=== PATIENT | male | born 1945 | race Caucasian/White ===

== ENCOUNTER 2019-07-25 09:50 | Outpatient (CLI) | payer MEDICARE, SELFPAY ==
[2019-07-25 10:12] LABS: Basophils % 0.5 %; Eosinophils # 0.1 10^3/uL (0.0-0.8); Eosinophils % 2.5 %; Hematocrit 36.8 % (42.0-52.0); Lymphocytes # 1.1 10^3/uL (0.8-4.8); Lymphocytes % 26.8 %; Mean Corpuscular HGB Conc 32.6 g/dL (30.0-36.0); Mean Corpuscular Hemoglobin 30.5 pg (28.0-34.0); Mean Corpuscular Volume 93.4 fL (80-94); Monocytes # 0.4 10^3/uL (0.2-0.9); Monocytes % 10.9 %; Neutrophils # 2.3 10^3/uL (1.8-7.7); Neutrophils % 58.1 %; Nucleated Red Blood Cells % 0 %; Platelet Count 152 10^3/cmm (130-400); Red Blood Count 3.94 10^6/uL (4.1-5.3); Red Cell Distribution Width 13.7 % (12.1-15.1)
[2019-07-25 10:45] LABS: Alanine Aminotransferase 7 U/L (0-41); Alkaline Phosphatase 60 IU/L (40-130); Anion Gap 14.4 (5-19); Aspartate Amino Transferase 17 U/L (0-40); Blood Urea Nitrogen 18 mg/dL (8-23); Calcium 9.6 mg/dL (8.5-10.5); Carbon Dioxide 26 mmol/L (22-29); Chloride 101 mmol/L (98-107); Glucose 171 mg/dL (65-115); Potassium 4.4 mmol/L (3.5-5.1); Sodium 137 mmol/L (136-145)
[2019-07-25 13:02] LABS: Estmated Average Glucose 120; Hemoglobin A1C 5.8 % (4.0-6.0)
--- NOTE | 2019-07-28 10:39 | ONC FU_ITS ---
Dr. Lindsey Patient Follow-Up Note Patient: Raj Herrera Unit #: [id number]: [id number] Dicatated By: Raj Lindsey M.D.Date of Visit:Jul 25, 2019 Onc Med Follow-up/Prog Note Chief Complaint: Colon cancer. 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 This patient has been in good general health. He has been advised to have a screening colonoscopy. He first had stool Hemoccult testing, which was found to be positive. He then underwent EGD and colonoscopy on 09/22/2017. The EGD showed evidence of reflux esophagitis along with gastritis and a chronic appearing gastric ulcer. The colonoscopy showed a partially obstructing, malignant appearing mass in the mid sigmoid colon. The findings are otherwise limited to diverticulosis. Biopsy of the mass showed adenomatous epithelium with high-grade dysplasia. Staging CT of the abdomen/pelvis showed some mucosal thickening near the region of the hepatic flexure and also at the descending colon and sigmoid colon junction, but a discrete mass was not identifiable. A 2 cm cystic mass involving the lower pole of the left kidney was indeterminate. Further evaluation with ultrasound was recommended. There was no evidence of metastatic disease, though. He was referred to Dr. Bennett, and on 10/04/2017 he underwent hand-assisted laparoscopic sigmoid colectomy. At the time there was no evidence of metastatic involvement in the liver or peritoneal metastatic involvement. He had no complications with the procedure. Pathology showed moderately differentiated (grade 2) invasive adenocarcinoma measuring 3.5 cm. The tumor was noted to extend through the muscularis with invasion of the visceral peritoneum. There was no lymphovascular invasion identified, and there was no involvement in 12 lymph nodes. I had seen him initially on 10/30/2017, and at that time had discussion with him regarding possibility of taking adjuvant chemotherapy, as he would potentially be at higher risk for recurrence with a T4 primary lesion. He indicated that he was willing to at least consider it. As such, I had requested further evaluation with an Oncotype DX assay. It showed a recurrence score of 25, correlating with a 3-year risk of recurrence with surgery alone estimated at 25% for a T4 tumor. He began adjuvant chemotherapy with Xeloda on 12/14/2017. The dosage calculated to 3000 mg bid for 14 days. He tolerated it well, and he was able to proceed with cycle 2 on 01/04/2018. At his follow-up visit on 01/31/2018 he had developed some mild hand/foot syndrome. I did have him continue with his 3rd cycle of chemotherapy, but with the dosage of Xeloda reduced to 2000 mg twice a day. He apparently continued the treatment for 21 days. He was seen again on 03/01/2018. At that point his treatment was put on hold due to a decrease in his white blood cell count to 2900 with ANC 1400. As of 03/14/2018 he was able to begin cycle 4 at the same dosage, which he tolerated well. He then continued treatment at 3-week intervals. He began his 8th and final cycle of treatment on 06/06/2018. Surveillance CT scans of the chest, abdomen, and pelvis on 07/23/2018 showed a few noncalcified pulmonary nodules in the right upper lobe, the largest measuring 6 mm. Previously described upper abdominal lymph nodes measuring 8-9 mm along the celiac axis appeared stable. With those findings, he continued on observation/expectant management. His other medical illnesses have been limited to type II diabetes and GERD/peptic ulcer disease. He is a nonsmoker. INTERIM HISTORY: Surveillance CT scans on 01/21/2019 showed indeterminant but stable complex cystic mass in the lower pole the left kidney measuring 2.0 cm. There were stable right hilar indeterminant lymph nodes and stable pleural plaques and right upper and lower lobe pulmonary nodules. He continued observation/expectant management. He is seen for a scheduled visit. He has been feeling pretty good generally. He says his energy is okay as long as he gets enough sleep. He has normal activity. He has good appetite. He has no fever or night sweats. He still has flareups of diarrhea every once in a while, and with those episodes he does have urgency with defecation. I am not sure if he has had a follow-up colonoscopy. He has some shortness of breath with activity. He does not have resting dyspnea, cough, or chest pain. He has no complaints other than he does have to get up at night several times to void. He has pain in his left knee, which is chronic. He has no focal neurologic symptoms. Medications: Aspirin 1 Tablet (of 81 mg) Oral daily, Cholecalciferol 1 Tablet (of 25 mcg ) Tablet, chewable Oral daily, [facility] Magnesium 1 Tablet (of 250 mg) Oral daily, Flomax 1 Capsule (of 0.4 mg) Oral daily, MetFORMIN HCl 1 (500 mg) Tablet Oral b.i.d., Multivitamin Men 1 Tablet Oral daily, Turmeric 2 Miscellaneous Oral daily, Vitamin B12 1 Miscellaneous Oral daily Allergies: No Known Allergies. Review of Systems: Constitutional - He is feeling good. His energy is fair. He has normal activity. 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 His appetite is good and his weight is stable. No fever, chills, hot flashes, or night sweats. ECOG score is 0, ENMT - No sinus congestion/drainage. No mouth sores. No sore throat or difficulty swallowing, Hematologic/Lymphatic - He bruises easily, Respiratory - He has shortness of breath upon exertion. No cough. No pleuritic pain or hemoptysis, Cardiovascular - No angina pain. No palpitations, Gastrointestinal - No nausea or vomiting. No heartburn or acid reflux. He has occasional mild diarrhea. No blood in the stool or black stools, Genitourinary (M) - No dysuria or hematuria. He has urinary frequency at night. No urgency or incontinence, Musculoskeletal - He has pain in his left knee, Integumentary - No skin complications, Neurologic - No headache or dizziness. No numbness/paresthesias or other focal neurologic symptoms, Psychiatric - No anxiety or depression. He is not sleeping well at night. Vital Signs: Performed on Jul 25, 2019 11:42 Height - 74.00 in Weight - 276.4 lbs (LOW) BSA - 2.49 sq.m BMI - 35.49 (HIGH) Temperature - 97.8 F (LOW) Pulse - 70 /min Respiration - 24 /min BP - 137/63 mm(hg) O2 Sat - 97 % Pain - 0 Physical Examination: Constitutional - He looks good generally, Eyes - Sclerae nonicteric. Conjunctivae clear, ENMT - No lesions noted in the oral cavity, Hematologic/Lymphatic - No cervical, clavicular, or axillary adenopathy, Respiratory - Lungs are clear with good air movement bilaterally, Cardiovascular - Heart rhythm is regular. There is a II/ systolic murmur. There is no gallop or rub noted, Abdomen - Moderately distended. Liver and spleen are not enlarged. There is no abdominal mass or ascites noted and there is no inguinal adenopathy, Extremities - No edema, Neurologic - No focal neurologic deficits noted. Lab/Imaging: Test performed on Jul 25, 2019 10:00 Sodium 137 mmol/L Potassium 4.4 mmol/L Chloride 101 mmol/L CO2 26 mmol/L Anion Gap 14.4 BUN 18 mg/dL Creatinine 0.9 mg/dL Cr Clearance (Est) 123.6300 mL/min Glucose 171 mg/dL Calcium 9.6 mg/dL Protein, Total 7.0 g/dL Albumin 4.0 g/dL Globulin 3.0 g/dL Bilirubin, Total 1.0 mg/dL ALT (SGPT) 7 U/L AST (SGOT) 17 U/L Alkaline Phosphatase 60 IU/L Hemoglobin A1C % 5.8 % WBC 4.0 10 3/uL RBC 3.94 10 6/uL HGB 12.0 g/dL HCT 36.8 % MCV 93.4 fL MCH 30.5 pg MCHC 32.6 g/dL RDW 13.7 % Platelet Count 152 10 3/cmm MPV 10.0 fL Neutrophils 2.3 10 3/uL Lymphocytes 1.1 10 3/uL Monocytes 0.4 10 3/uL Eosinophils 0.1 10 3/uL Basophils 0.0 10 3/uL Neutrophil % 58.1 % Lymphocyte % 26.8 % Monocyte % 10.9 % Eosinophil % 2.5 % Basophils % 0.5 % CEA 2.0 ng/mL Impression: 1. 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 His tumor was found to be MMR proficient. His Oncotype DX showed a recurrence score of 25, correlating with a 3-year risk of recurrence with surgery alone estimated at 25% for a T4 tumor. 2. He underwent hand-assisted laparoscopic sigmoid colectomy on 10/04/2017. 3. He had CT evidence of a 2 cm cystic mass involving the lower pole of the left kidney, felt to be indeterminate. His other medical illnesses include: 4. Type II diabetes. 5. He had EGD evidence of GERD and chronic gastric ulcer. He underwent adjuvant chemotherapy with 8 cycles of Xeloda between November and May 2018. He did require dose reductions for hand/foot syndrome and for neutropenia. Overall, he tolerated the treatment well. During follow-up he has continued to have some diarrhea intermittently. He has otherwise been doing well clinically, and thus far there has been no evidence of recurrence of the colon cancer. Plan: He remains on observation/expectant management. I will verify the status of his surveillance colonoscopy. I will see him again in 6 months. Signed By: Raj Lindsey M.D. <<Signature on File>>
== END 2019-07-25 09:51 | disposition home or self-care (01) ==
LOC: ONCMED 09:54
PROVIDERS: Visit Provider Internal Medicine Medical Oncology
DX: Z08 Encounter for follow-up examination after completed treatment for malignant neoplasm (principal); Z85.038 Personal history of other malignant neoplasm of large intestine; E11.9 Type 2 diabetes mellitus without complications; K21.9 Gastro-esophageal reflux disease without esophagitis; Z79.82 Long term (current) use of aspirin; Z79.84 Long term (current) use of oral hypoglycemic drugs; Z90.49 Acquired absence of other specified parts of digestive tract; Z87.11 Personal history of peptic ulcer disease
CPT/HCPCS: 36415; 80053; 82378; 83036; 85025; G0463

== ENCOUNTER → 2020-01-06 14:55 | Outpatient (BNVA) | payer MEDICARE, SELFPAY | PROVIDERS: Visit Provider Family Medicine | DX: I10 Essential (primary) hypertension (principal); E11.9 Type 2 diabetes mellitus without complications; Z85.038 Personal history of other malignant neoplasm of large intestine; R55 Syncope and collapse; R01.1 Cardiac murmur, unspecified | CPT/HCPCS: 80053; 85025 ==

== ENCOUNTER 2020-01-16 11:21 | Emergency (ER) | payer MEDICARE, SELFPAY ==
[2020-01-16 11:25] VITALS: BMI 32.8
[2020-01-16 11:38] VITALS: BP 148/67; PULSE 76; RESP 18; TEMP 36.9; O2SAT 98
--- NOTE | 2020-01-16 11:46 | XRR_ITS ---
PROCEDURE INFORMATION: Exam: XR Chest, 1 View Exam date and time: 01/16/2020 12:17 PM Age: 74 years old Clinical indication: Cough TECHNIQUE: Imaging protocol: XR of the chest Views: 1 view. COMPARISON: CT Chest/Abdomen/Pelvis w IV* 01/21/2019 10:04 AM FINDINGS: Lungs: Patchy alveolar airspace disease in the right mid lung. Pleural space: Unremarkable. No pleural effusion. No pneumothorax. Heart/Mediastinum: The cardiac silhouette appears enlarged, some of which is magnification related to the AP projection. Bones/joints: Unremarkable. XR/XR chest 1V portable [id number] IMPRESSION: Patchy alveolar airspace disease in the right mid lung. Please correlate. Consider CT if indicated. Likely infectious. Follow-up to ensure resolution.
[2020-01-16 11:56] VITALS: BP 146/64; PULSE 79; RESP 20; O2SAT 97
[2020-01-16 12:07] LABS: ABG PCO2 36.8 mmHg (35-45); ABG PH Result 7.43 (7.35-7.45); Arterial Blood Gas Hematocrit 35.7 % (42-52); Base Excess ABG 0.5 mmol/L (-2.0-2.0); Blood Gas Allen Test Pos; Blood Gas Sample Type Arterial; HCO3 ABG 24.6 mmol/L (22-26); PO2 ABG 83.3 mmHg (80.0-100.0)
[2020-01-16 12:14] LABS: Basophils % 0.7 %; Eosinophils % 0.9 %; Hematocrit 34.2 % (42.0-52.0); Hemoglobin 11.3 g/dL (11.7-16.6); Lymphocytes # 1.4 10^3/uL (0.8-4.8); Lymphocytes % 34.1 %; Mean Corpuscular Hemoglobin 31.3 pg (28.0-34.0); Mean Corpuscular Volume 94.7 fL (80-94); Mean Platelet Volume 10.8 fL (7.4-10.4); Monocytes # 0.4 10^3/uL (0.2-0.9); Monocytes % 9.2 %; Neutrophils # 2.08 10^3/uL (1.8-7.7); Neutrophils % 49.4 %; Nucleated Red Blood Cells % 0 %; Platelet Count 180 10^3/cmm (130-400); Red Blood Count 3.61 10^6/uL (4.1-5.3); Red Cell Distribution Width 13.8 % (12.1-15.1); White Blood Count 4.2 10^3/uL (4.0-10.0)
[2020-01-16] MEDS: sodium chloride 0.9% 1,000 ML 999 ML IV (12:27)
--- NOTE | 2020-01-16 12:27 | ED_ITS ---
HPI - General Adult General: Chief complaint: General Medical Stated complaint: TESTED POS FOR COVID/HAS SYMPTOMS Time Seen by Provider: 01/16/20 11:38 Source: patient Mode of arrival: ambulatory Limitations: no limitations History of Present Illness: HPI narrative: Raj is a very nice 74-year-old male who comes in complaining of possible COVID-19 exposure. He believes actually he probably passed this to his . He has had the symptoms for quite some time and feels like he is getting better. He has an occasional cough but no shortness of breath. He denies fever, sore throat, loss of sense of taste/smell, vomiting or any other respiratory complaint. He does state he has occasional diarrhea that is nonbloody. Denies any abdominal pain or nausea/vomiting. Patient states that he only came in because he was advised by his doctor that he should get tested. He otherwise states he is feeling better but it is taken quite some time. Associated symptoms: Deny chest pain, dyspnea, headache(s), nausea, rash, palpitations, syncope or vomiting Review of Systems Const: Denies: fever(s) Eyes: Denies: change in vision ENMT: Denies: throat pain Card: Denies: chest pain, palpitations, syncope, pre-syncope or dyspnea on exertion Resp: Denies: dyspnea, productive cough or non-productive cough GI: Reports: diarrhea; Denies: abdominal pain, nausea or vomiting : Denies: flank pain, dysuria, urinary frequency or urinary urgency Musc: Denies: neck pain, back pain or extremity pain Skin/Breast: Denies: rash or pruritus Neuro: Denies: headache(s), numbness in extremities, weakness in extremities or dizziness Zeus/Lymph: Denies: easy bruising or easy bleeding All/Imm: Denies: urticaria PFSH ED PFSH: Medical History Benign prostatic hyperplasia with urinary frequency Essential (primary) hypertension H/O malignant neoplasm of colon We found his left sided lesion in 09/2017. Repeat exam in 2019 was negative. 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 Out of state: Yes Out of country: No Current gender identity: Male Physical Exam Const: COMMON NORMALS: no acute distress, patient oriented x3, no limitations, healthy appearing and well nourished GENERAL APPEARANCE: cooperative, well kempt and well developed HENMT: COMMON NORMALS: normocephalic, atraumatic, external ears normal, EAC's normal and Normal external nose present HEAD & SCALP: normal to inspection, normocephalic and atraumatic FACE & SINUS: normal facial exam and face symmetric NOSE: Normal external nose present and Normal nares present EXTERNAL EAR: Yes external ears normal EXTERNAL AUDITORY CANAL: EAC's normal MOUTH: Normal oral and palatal mucosa present, lip normal and tongue normal Eye: COMMON NORMALS: Equal, round and reactive pupils present and conjunctivae normal GENERAL EYE: appearance normal, both eyes and all related structures ALIGNMENT: Yes alignment normal PERIORBITAL: periorbital findings normal EYELID: eyelids normal CONJUNCTIVA: Yes conjunctivae normal SCLERA: sclerae normal PUPIL: Yes Equal, round and reactive pupils present Neck/C-Spine: COMMON NORMALS: full ROM, no lymphadenopathy, supple, no meningeal signs and no JVD GENERAL: Yes normal visual inspection and Yes trachea midline Chest: COMMONS NORMALS: normal inspection of the chest and normal palpation of entire chest wall Resp: COMMON NORMALS: normal respiratory effort, No retractions and No use of accessory muscles EFFORT & INSPECTION: Yes able to speak in complete sentences and Yes symmetric chest movement AUSCULTATION: no crackles, no rales, no rhonchi and no wheezes Cardio: COMMON NORMALS: no JVD, regular rate, regular rhythm, S1 normal heart sound present and S2 normal heart sound present RATE: regular rate RHYTHM: regular rhythm HEART SOUNDS: S1 normal heart sound present, S2 normal heart sound present, no click, no gallops, no murmurs, no rubs and abnormal split S2 GI: COMMON NORMALS: Soft to palpation and No hepatosplenomegaly present PALPATION: Yes Soft to palpation, No Tenderness to palpation present (GI), No Guarding due to palpation present (GI), No Rigid due to palpation, Yes No hepatosplenomegaly present, No Hernia present, No Palpable mass present and No Pulsatile mass present : COMMON NORMALS: Yes no CVA tenderness BLADDER/KIDNEY EXAM: Yes no CVA tenderness Back/Pelvis: COMMON NORMALS: no CVA tenderness, thoracic and lumbar spine normal to inspection, no thoracic nor lumbar tenderness and thoraco-lumbar ROM normal Extremity: COMMON NORMALS: normal to inspection, full ROM, capillary refill normal, no joint enlargement, no clubbing, cyanosis or edema and no calf tenderness Neuro: COMMON NORMALS: patient oriented x3, CN's II-XII intact bilaterally, moves all extremities, no focal motor deficits and no sensory deficits noted MENINGEAL SIGNS: Yes no meningeal signs SPEECH: speech normal Psych: COMMON NORMALS: mental status grossly normal, Normal thought process present, cooperative, normal affect, speech normal and activity/motor behavior normal APPEARANCE: Yes well kempt SPEECH: Yes normal speech THOUGHT PROCESS: Normal thought process present Skin: COMMON NORMALS: no rashes or lesions noted, turgor normal, no jaundice, no petechiae and no mottling GENERAL SKIN EXAM: no rashes or lesions noted and turgor normal Course Vital Signs: Vital signs: Vital Signs Temperature 98.6 F 01/16/20 13:48 Pulse Rate 64 01/16/20 13:48 Respiratory Rate 18 01/16/20 13:48 Blood Pressure 131/71 01/16/20 13:48 Pulse Oximetry 99 01/16/20 13:48 MDM - General Adult MDM Narrative: Medical decision making narrative: Mr. Herrera is a very nice 74-year-old male who comes in with a week's worth or more history of shortness of breath and cough. His tested positive for the COVID-19 virus. The patient is specifically here for that test and the test has been sent. He will go home and quarantine himself until the results are known. In the meantime as he appears to have a focal infiltrate on his chest x-ray I will put him on Levaquin. Patient is not hypoxic, he is not tachypneic and shows no sign of sepsis. I see no sign of acute decompensation. The patient wants to go home but does agree to return if his symptoms worsen. He agrees to follow-up as directed or return here if needed. Lab Data: Attestation: I reviewed the patient's lab results. Labs: Lab Results 01/16/20 01/16/20 01/16/20 Range/Units 11:54 11:54 11:57 WBC 4.2 (4.0-10.0) 10^3/ uL RBC 3.61 L (4.1-5.3) 10^6/u L Hgb 11.3 L (11.7-16.6) g/dL Hct 34.2 L (42.0-52.0) % MCV 94.7 H (80-94) fL MCH 31.3 (28.0-34.0) pg MCHC 33.0 (30.0-36.0) g/dL RDW 13.8 (12.1-15.1) % Plt Count 180 (130-400) 10^3/c mm MPV 10.8 H (7.4-10.4) fL Neut % (Auto) 49.4 % Lymph % (Auto) 34.1 % Craig % (Auto) 9.2 % Eos % (Auto) 0.9 % Baso % (Auto) 0.7 % Neut # (Auto) 2.08 (1.8-7.7) 10^3/u L Lymph # (Auto) 1.4 (0.8-4.8) 10^3/u L Craig # (Auto) 0.4 (0.2-0.9) 10^3/u L Eos # (Auto) 0.0 (0.0-0.8) 10^3/u L Baso # (Auto) 0.0 (0.0-0.1) 10^3/u L Nucleated RBC % (a uto) 0 % Nucleated RBCs # 0.0 /100WBC Specimen Type Arterial Sample Site Radial, left ABG pH 7.43 (7.35-7.45) ABG pCO2 36.8 (35-45) mmHg ABG pO2 83.3 (80.0-100.0) mmH g ABG HCO3 24.6 (22-26) mmol/L ABG Base Excess 0.5 (-2.0-2.0) mmol/ L Glenn Test Pos Hematocrit 35.7 L (42-52) % O2 Delivery Device Room air Shoe Stitcher ID Gd Sodium 137 (136-145) mmol/L Potassium 3.8 (3.5-5.1) mmol/L Chloride 104 (98-107) mmol/L Carbon Dioxide 22 (22-29) mmol/L Anion Gap 14.8 (5-19) BUN 17 (8-23) mg/dL Creatinine 0.9 (0.7-1.2) mg/dL GFR Calculation Not Reportable Glucose 200 H (65-115) mg/dL Calculated Osmolal ity 286 (285-295) mOsm/k g Calcium 8.2 L (8.5-10.5) mg/dL Total Bilirubin 0.9 (0.15-1.2) mg/dL AST 19 (0-40) U/L ALT 8 (0-41) U/L Alkaline Phosphata se 54 (40-130) IU/L Total Protein 7.4 (6.6-8.7) g/dL Albumin 3.9 (3.5-5.2) g/dL Globulin 3.5 (1.3-4.6) g/dL Imaging Data^: CXR: Attestation: I personally reviewed and interpreted this imaging study as follows: My impression: Probable right upper lobe infiltrate Discharge Plan Discharge Patient Disposition: Home Clinical Impression: Pneumonia Qualifiers: Pneumonia type: due to unspecified organism Laterality: right Lung location: upper lobe of lung Qualified Code(s): J18.9 - Pneumonia, unspecified organism Condition: Stable Prescriptions: New Levaquin 750 mg tablet 750 mg PO DAILY 7 Days RF: 0 No Action vitamin [id number] B1 Liquid PO RF: 0 aspirin [Adult Aspirin Regimen] 81 mg tablet,delayed release (DR/EC) 81 mg PO DAILY RF: 0 multivitamin Tablet 1 tab PO QAM RF: 0 cholecalciferol (vitamin D3) 50 mcg (2,000 unit) capsule 2,000 unit PO DAILY RF: 0 metformin 500 mg tablet 500 mg PO DAILY 90 Days Qty: 90 RF: 1 tamsulosin 0.4 mg capsule 0.8 mg PO DAILY 90 Days Qty: 180 RF: 1 lisinopril 5 mg tablet 5 mg PO DAILY 90 Days Qty: 90 RF: 1 Discharge Orders: Discharge Order (Routine); Ordered 01/16/20 Ordered By: Pat Camara Referrals: [facility] [Other] Doc Jones MD [Physician] - 1-3 days Discharge Diet: Usual diet Discharge Activity: Increase activity as tolerated Patient Instructions: Viral Pneumonia (ED), Bacterial Pneumonia (ED), Pneumonia (ED) Activity Restrictions/Additional Instructions: Please return to the ER immediately for any of the signs or symptoms listed on your discharge instruction sheets, worsening/changing of your symptoms, you are not getting better as quickly as expected, or for ANY other cause or concerns. Keep yourself quarantined and away from people until we call you with a results of your COVID-19 test. Take your antibiotics in case of secondary bacterial infection. Be certain to follow-up with your doctor or with Dr. Jones as soon as possible for recheck. Discharge Date/Time: 01/16/20 13:54 Coding Level of Care Code ED Lithoduplicator Operator for Shelleyg Fwd Exam Comprehensive
[2020-01-16 12:29] LABS: Blood Gas Operator Identificat GD; Blood Gas Sample Site Radial, left; Oxygen Device ROOM AIR
[2020-01-16 12:35] LABS: Alanine Aminotransferase 8 U/L (0-41); Albumin Level 3.9 g/dL (3.5-5.2); Alkaline Phosphatase 54 IU/L (40-130); Anion Gap 14.8 (5-19); Aspartate Amino Transferase 19 U/L (0-40); Blood Urea Nitrogen 17 mg/dL (8-23); Calcium 8.2 mg/dL (8.5-10.5); Carbon Dioxide 22 mmol/L (22-29); Chloride 104 mmol/L (98-107); Globulin 3.5 g/dL (1.3-4.6); Glucose 200 mg/dL (65-115); Osmolality Calculated 286 mOsm/kg (285-295); Potassium 3.8 mmol/L (3.5-5.1); Sodium 137 mmol/L (136-145); Total Bilirubin 0.9 mg/dL (0.15-1.2); Total Protein 7.4 g/dL (6.6-8.7)
[2020-01-16 12:38] LABS: Slide Review Slide Review Perform
[2020-01-16 13:48] VITALS: BP 131/71; PULSE 64; RESP 18; TEMP 37; O2SAT 99
[2020-01-18 14:54] LABS: Quest SARS-CoV-2 RNA NOT DETECTED (NOT DETECTED)
--- NOTE | 2020-01-18 16:54 | PC.NURSE ---
Pt called and notified of negative COVID test.
== END 2020-01-16 13:54 | disposition home or self-care (01) ==
PROVIDERS: Emergency Provider Emergency Medicine
DX: J18.9 Pneumonia, unspecified organism (principal); Z79.82 Long term (current) use of aspirin; I10 Essential (primary) hypertension; Z85.038 Personal history of other malignant neoplasm of large intestine; E11.9 Type 2 diabetes mellitus without complications
CPT/HCPCS: 12345; 36600; 71045; 80053; 82803; 85025; 87040; 87205; 87635; 96360; 99282; 99283; J7030

== ENCOUNTER 2020-02-18 08:47 | Outpatient (CLI) | payer MEDICARE, SELFPAY ==
[2020-02-18 09:02] LABS: Basophils % 0.8 %; Eosinophils # 0.1 10^3/uL (0.0-0.8); Eosinophils % 2.4 %; Hematocrit 38.7 % (42.0-52.0); Hemoglobin 12.5 g/dL (11.7-16.6); Lymphocytes # 1.4 10^3/uL (0.8-4.8); Lymphocytes % 37.3 %; Mean Corpuscular HGB Conc 32.3 g/dL (30.0-36.0); Mean Platelet Volume 10.7 fL (7.4-10.4); Monocytes # 0.5 10^3/uL (0.2-0.9); Monocytes % 13.6 %; Neutrophils # 1.65 10^3/uL (1.8-7.7); Nucleated Red Blood Cells % 0 %; Platelet Count 145 10^3/cmm (130-400); Red Blood Count 4.03 10^6/uL (4.1-5.3); Red Cell Distribution Width 14.3 % (12.1-15.1); White Blood Count 3.8 10^3/uL (4.0-10.0)
[2020-02-18 09:18] LABS: Alanine Aminotransferase 8 U/L (0-41); Albumin Level 4.5 g/dL (3.5-5.2); Alkaline Phosphatase 57 IU/L (40-130); Anion Gap 11.6 (5-19); Aspartate Amino Transferase 14 U/L (0-40); Blood Urea Nitrogen 17 mg/dL (8-23); Calcium 9.5 mg/dL (8.5-10.5); Carbon Dioxide 29 mmol/L (22-29); Chloride 107 mmol/L (98-107); Globulin 3.3 g/dL (1.3-4.6); Glucose 146 mg/dL (65-115); Osmolality Calculated 295 mOsm/kg (285-295); Potassium 4.6 mmol/L (3.5-5.1); Sodium 143 mmol/L (136-145); Total Bilirubin 0.8 mg/dL (0.15-1.2); Total Protein 7.8 g/dL (6.6-8.7)
--- NOTE | 2020-02-18 09:54 | CT_ITS ---
WS: [id number] CT CHEST, ABDOMEN AND PELVIS WITH CONTRAST HISTORY: COLON CANCER TECHNIQUE: Contiguous 5 mm axial imaging performed through the chest, abdomen and pelvis with IV cont rast, oral contrast has been provided. Coronal and sagittal reformats chest. Coronal and sagittal ref ormats through the abdomen and pelvis. All CT scans at [facility] use at least one of the se dose optimization techniques: automated exposure control; mA and/or kV adjustment per patient size (includes targeted exams where dose is matched to clinical indication); or iterative reconstruction. CONTRAST: Visipaque 320; 95 mL IV. DLP: 2684.76 mGy.cm COMPARISON: 01/21/2019 and 07/23/[address]: Well aerated lungs. No metastatic disease. Soft tissue nodule measures 7 mm along the super ior RIGHT major fissure. There are bilateral stable pleural plaques. No pleural effusion or pericardi al effusion. Very mild enlargement of the LEFT heart structures. Small bilateral hilar lymph nodes. L argest lymph node is stable along the RIGHT measuring 11 mm. Additional smaller RIGHT intrapulmonary lymph node at 8 mm. Small hiatal hernia. Abdomen CT: No metastatic disease to the liver. Liver is top normal size. Cholelithiasis without acut e cholecystitis. Normal size spleen. Negative pancreas. No adrenal mass. Slightly lobulated exophytic cyst from the lower pole LEFT kidney measures 2.6 cm. No obstruction. Mild atherosclerosis aorta. No omental disease. No adenopathy. No ascites. There is no GI tract obstruction. Ventral abdominal wall hernia contains a loop of small bowel. There is no obstruction. Rectosigmoid anastomotic site is normal. No recurrent mass or obstruction. Pelvic CT: Normally distended urinary bladder. There is no ascites or pelvic sidewall adenopathy. No osteoblastic or osteolytic bone disease. Mild increase in the thoracic kyphosis. No osseous destru ction. CT/CT chest abd pel w con* IMPRESSION: 1. No evidence for metastatic disease or disease progression within the chest, abdomen or pelvis. 2. Bilateral pleural plaques with stable soft tissue pulmonary nodules. 3. Stable rectosigmoid anastomosis. 4. Cholelithiasis without acute cholecystitis.
[2020-02-18 10:05] LABS: Carcinoembryonic Antigen 2.3 ng/mL (0.0-4.7)
[2020-02-18] MEDS: iohexol 300 mg/mL 50 mL Btl PO (10:07)
[2020-02-18] MEDS: iodixanol 320 mg/mL 100mL Btl IV (10:50)
== END 2020-02-18 08:48 | disposition home or self-care (01) ==
LOC: CT 08:48
PROVIDERS: PCP Family Medicine; Visit Provider Internal Medicine Medical Oncology
DX: C18.7 Malignant neoplasm of sigmoid colon (principal); K63.89 Other specified diseases of intestine; K80.20 Calculus of gallbladder without cholecystitis without obstruction
CPT/HCPCS: 36415; 71260; 74177; 80053; 82378; 85025

== ENCOUNTER 2020-02-19 08:47 | Outpatient (CLI) | payer MEDICARE, SELFPAY ==
--- NOTE | 2020-02-19 10:28 | ONC FU_ITS ---
Dr. Lindsey Patient Follow-Up Note Patient: Raj Herrera Unit #: [id number]: 1945 Dicatated By: Raj Lindsey M.D.Date of Visit:Feb 19, 2020 Onc Med Follow-up/Prog Note Chief Complaint: Colon cancer. 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 This patient has been in good general health. He has been advised to have a screening colonoscopy. He first had stool Hemoccult testing, which was found to be positive. He then underwent EGD and colonoscopy on 09/22/2017. The EGD showed evidence of reflux esophagitis along with gastritis and a chronic appearing gastric ulcer. The colonoscopy showed a partially obstructing, malignant appearing mass in the mid sigmoid colon. The findings are otherwise limited to diverticulosis. Biopsy of the mass showed adenomatous epithelium with high-grade dysplasia. Staging CT of the abdomen/pelvis showed some mucosal thickening near the region of the hepatic flexure and also at the descending colon and sigmoid colon junction, but a discrete mass was not identifiable. A 2 cm cystic mass involving the lower pole of the left kidney was indeterminate. Further evaluation with ultrasound was recommended. There was no evidence of metastatic disease, though. He was referred to Dr. Bennett, and on 10/04/2017 he underwent hand-assisted laparoscopic sigmoid colectomy. At the time there was no evidence of metastatic involvement in the liver or peritoneal metastatic involvement. He had no complications with the procedure. Pathology showed moderately differentiated (grade 2) invasive adenocarcinoma measuring 3.5 cm. The tumor was noted to extend through the muscularis with invasion of the visceral peritoneum. There was no lymphovascular invasion identified, and there was no involvement in 12 lymph nodes. I had seen him initially on 10/30/2017, and at that time had discussion with him regarding possibility of taking adjuvant chemotherapy, as he would potentially be at higher risk for recurrence with a T4 primary lesion. He indicated that he was willing to at least consider it. As such, I had requested further evaluation with an Oncotype DX assay. It showed a recurrence score of 25, correlating with a 3-year risk of recurrence with surgery alone estimated at 25% for a T4 tumor. He began adjuvant chemotherapy with Xeloda on 12/14/2017. The dosage calculated to 3000 mg bid for 14 days. He tolerated it well, and he was able to proceed with cycle 2 on 01/04/2018. At his follow-up visit on 01/31/2018 he had developed some mild hand/foot syndrome. I did have him continue with his 3rd cycle of chemotherapy, but with the dosage of Xeloda reduced to 2000 mg twice a day. He apparently continued the treatment for 21 days. He was seen again on 03/01/2018. At that point his treatment was put on hold due to a decrease in his white blood cell count to 2900 with ANC 1400. As of 03/14/2018 he was able to begin cycle 4 at the same dosage, which he tolerated well. He then continued treatment at 3-week intervals. He began his 8th and final cycle of treatment on 06/06/2018. Surveillance CT scans of the chest, abdomen, and pelvis on 07/23/2018 showed a few noncalcified pulmonary nodules in the right upper lobe, the largest measuring 6 mm. Previously described upper abdominal lymph nodes measuring 8-9 mm along the celiac axis appeared stable. With those findings, he continued on observation/expectant management. He had a negative surveillance colonoscopy in September 2018. His other medical illnesses have been limited to type II diabetes and GERD/peptic ulcer disease. He is a nonsmoker. INTERIM HISTORY: Surveillance CT scans on 01/21/2019 showed indeterminant but stable complex cystic mass in the lower pole the left kidney measuring 2.0 cm. There were stable right hilar indeterminant lymph nodes and stable pleural plaques and right upper and lower lobe pulmonary nodules. He continued observation/expectant management. Surveillance CT scans on 02/18/2020 showed no evidence for metastatic disease or disease progression within the chest, abdomen or pelvis. Bilateral pleural plaques and a 7 mm soft tissue pulmonary nodule along the superior right major fissure appeared stable. He is seen for a scheduled visit. He has been feeling fine. He has good energy and activity tolerance. ECOG score is 0. He has good appetite. He has no fever or night sweats. He has no shortness of breath, cough, or chest pain. He has no GI complaints. He continues to have nocturia 3 or 4 times. He is not getting any apparent benefit with tamsulosin even at 0.8 mg daily. 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 He has no headache or dizziness, and he has no focal neurologic symptoms. Medications: Aspirin 1 Tablet (of 81 mg) Oral daily, Cholecalciferol 1 Tablet (of 25 mcg ) Tablet, chewable Oral daily, [facility] Magnesium 1 Tablet (of 250 mg) Oral daily, Flomax 1 Capsule (of 0.4 mg) Oral daily, focus factor 1 Tablet Capsule Oral daily, Lisinopril 1 Tablet Oral daily, MetFORMIN HCl 1 (500 mg) Tablet Oral b.i.d., Multivitamin Men 1 Tablet Oral daily, Turmeric 1 Tablet Miscellaneous Oral daily, Vitamin B12 1 Miscellaneous Oral daily, Vitamin C 1 Capsule (of 500 mg) Oral daily Allergies: No Known Allergies. Review of Systems: Constitutional - He has been feeling good. His energy is good and he has normal activity without restrictions. His appetite is good and weight is stable. No fever, night sweats, or hot flashes. ECOG score is 0, ENMT - No sinus congestion/drainage. No mouth sores. No sore throat or difficulty swallowing, Hematologic/Lymphatic - No abnormal bruising or bleeding, Respiratory - No shortness of breath. No cough. No pleuritic pain or hemoptysis, Cardiovascular - No angina pain. No palpitations, Gastrointestinal - No nausea or vomiting. No heartburn or acid reflux. No diarrhea or constipation. No blood in the stool or black stools, Genitourinary (M) - No dysuria or hematuria. He has urinary frequency at night. He is taking 0.8 mg of Flomax nightly. No urgency or incontinence, Musculoskeletal - He has some joint stiffness in his hands, Integumentary - No skin complications, Neurologic - No headache or dizziness. No numbness or tingling. No other focal neurologic symptoms, Psychiatric - No anxiety or depression. No insomnia. Vital Signs: Performed on Feb 19, 2020 09:03 Height - 74.00 in Weight - 277.8 lbs (HIGH) BSA - 2.50 sq.m BMI - 35.67 (HIGH) Temperature - 97.4 F (LOW) Pulse - 78 /min Respiration - 20 /min BP - 144/57 mm(hg) (HIGH) O2 Sat - 98 % Pain - 0 Physical Examination: Constitutional - He looks good generally, Eyes - Sclerae nonicteric. Conjunctivae clear, ENMT - No lesions noted in the oral cavity, Hematologic/Lymphatic - No cervical, clavicular, or axillary adenopathy, Respiratory - Lungs are clear with good air movement bilaterally, Cardiovascular - Heart rhythm is regular. There is a II/ systolic murmur. There is no gallop or rub noted, Abdomen - Moderately distended. Liver and spleen are not enlarged. There is no abdominal mass or ascites noted and there is no inguinal adenopathy, Extremities - No edema, Neurologic - No focal neurologic deficits noted. Lab/Imaging: CBC shows hemoglobin 12.5 g, white blood cell count 3800, and platelet count 145,000. Comprehensive metabolic profile is unremarkable. The bilirubin and liver enzymes are normal. His CEA is stable at 2.3 ng/mL. Impression: 1. 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 His tumor was found to be MMR proficient. His Oncotype DX showed a recurrence score of 25, correlating with a 3-year risk of recurrence with surgery alone estimated at 25% for a T4 tumor. 2. He underwent hand-assisted laparoscopic sigmoid colectomy on 10/04/2017. 3. He had CT evidence of a 2 cm cystic mass involving the lower pole of the left kidney, felt to be indeterminate. His other medical illnesses include: 4. Type II diabetes. 5. He had EGD evidence of GERD and chronic gastric ulcer. He underwent adjuvant chemotherapy with 8 cycles of Xeloda between November and May 2018. He did require dose reductions for hand/foot syndrome and for neutropenia. Overall, he tolerated the treatment well. During follow-up he has been doing well clinically. Thus far there has been no evidence of recurrence of the colon cancer. Plan: He remains on observation/expectant management. I will see him again in 6 months. Signed By: Raj Lindsey M.D. <<Signature on File>>
== END 2020-02-19 08:48 | disposition home or self-care (01) ==
LOC: ONCMED 08:50
PROVIDERS: PCP Family Medicine; Visit Provider Internal Medicine Medical Oncology
DX: Z08 Encounter for follow-up examination after completed treatment for malignant neoplasm (principal); Z85.038 Personal history of other malignant neoplasm of large intestine; K21.9 Gastro-esophageal reflux disease without esophagitis; E11.9 Type 2 diabetes mellitus without complications
CPT/HCPCS: G0463

== ENCOUNTER → 2020-03-30 09:10 | Outpatient (BNVA) | payer MEDICARE, SELFPAY | PROVIDERS: PCP Family Medicine; Visit Provider Family Medicine | DX: E11.9 Type 2 diabetes mellitus without complications (principal); I10 Essential (primary) hypertension; N40.1 Benign prostatic hyperplasia with lower urinary tract symptoms; R55 Syncope and collapse; R01.1 Cardiac murmur, unspecified; Z85.038 Personal history of other malignant neoplasm of large intestine; R35.0 Frequency of micturition | CPT/HCPCS: 80048; 80061; 83036 ==

== ENCOUNTER 2020-07-23 12:50 | Outpatient (CLI) | payer MEDICARE, SELFPAY ==
[2020-07-23 13:36] LABS: Eosinophils # 0.1 10^3/uL (0.0-0.8); Eosinophils % 1.7 %; Hematocrit 36.7 % (42.0-52.0); Hemoglobin 11.9 g/dL (11.7-16.6); Lymphocytes # 1.4 10^3/uL (0.8-4.8); Lymphocytes % 33.4 %; Mean Corpuscular HGB Conc 32.4 g/dL (30.0-36.0); Mean Corpuscular Hemoglobin 31.2 pg (28.0-34.0); Mean Corpuscular Volume 96.3 fL (80-94); Mean Platelet Volume 10.8 fL (7.4-10.4); Monocytes # 0.8 10^3/uL (0.2-0.9); Monocytes % 20.5 %; Neutrophils # 1.66 10^3/uL (1.8-7.7); Neutrophils % 41.2 %; Nucleated Red Blood Cells % 0 %; Platelet Count 137 10^3/cmm (130-400); Red Blood Count 3.81 10^6/uL (4.1-5.3); Red Cell Distribution Width 13.9 % (12.1-15.1)
[2020-07-23 13:48] LABS: Alanine Aminotransferase 8 U/L (0-41); Albumin Level 4.1 g/dL (3.5-5.2); Alkaline Phosphatase 56 IU/L (40-130); Anion Gap 10.1 (5-19); Aspartate Amino Transferase 17 U/L (0-40); Blood Urea Nitrogen 13 mg/dL (8-23); Calcium 8.9 mg/dL (8.5-10.5); Carbon Dioxide 30 mmol/L (22-29); Chloride 102 mmol/L (98-107); Globulin 2.8 g/dL (1.3-4.6); Glucose 139 mg/dL (65-115); Osmolality Calculated 288 mOsm/kg (285-295); Potassium 4.1 mmol/L (3.5-5.1); Sodium 138 mmol/L (136-145); Total Bilirubin 0.9 mg/dL (0.15-1.2); Total Protein 6.9 g/dL (6.6-8.7)
[2020-07-23 16:28] LABS: Carcinoembryonic Antigen 2.2 ng/mL (0.0-4.7)
[2020-07-23 18:39] LABS: Estmated Average Glucose 111; Hemoglobin A1C 5.5 % (4.0-6.0)
--- NOTE | 2020-07-25 11:43 | ONC FU_ITS ---
Dr. Lindsey Patient Follow-Up Note Patient: Raj Herrera Unit #: [id number]: 1945 Dicatated By: Raj Lindsey M.D.Date of Visit:Jul 23, 2020 Onc Med Follow-up/Prog Note Chief Complaint: Colon cancer. 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 This patient has been in good general health. He has been advised to have a screening colonoscopy. He first had stool Hemoccult testing, which was found to be positive. He then underwent EGD and colonoscopy on 09/22/2017. The EGD showed evidence of reflux esophagitis along with gastritis and a chronic appearing gastric ulcer. The colonoscopy showed a partially obstructing, malignant appearing mass in the mid sigmoid colon. The findings are otherwise limited to diverticulosis. Biopsy of the mass showed adenomatous epithelium with high-grade dysplasia. Staging CT of the abdomen/pelvis showed some mucosal thickening near the region of the hepatic flexure and also at the descending colon and sigmoid colon junction, but a discrete mass was not identifiable. A 2 cm cystic mass involving the lower pole of the left kidney was indeterminate. Further evaluation with ultrasound was recommended. There was no evidence of metastatic disease, though. He was referred to Dr. Bennett, and on 10/04/2017 he underwent hand-assisted laparoscopic sigmoid colectomy. At the time there was no evidence of metastatic involvement in the liver or peritoneal metastatic involvement. He had no complications with the procedure. Pathology showed moderately differentiated (grade 2) invasive adenocarcinoma measuring 3.5 cm. The tumor was noted to extend through the muscularis with invasion of the visceral peritoneum. There was no lymphovascular invasion identified, and there was no involvement in 12 lymph nodes. I had seen him initially on 10/30/2017, and at that time had discussion with him regarding possibility of taking adjuvant chemotherapy, as he would potentially be at higher risk for recurrence with a T4 primary lesion. He indicated that he was willing to at least consider it. As such, I had requested further evaluation with an Oncotype DX assay. It showed a recurrence score of 25, correlating with a 3-year risk of recurrence with surgery alone estimated at 25% for a T4 tumor. He began adjuvant chemotherapy with Xeloda on 12/14/2017. The dosage calculated to 3000 mg bid for 14 days. He tolerated it well, and he was able to proceed with cycle 2 on 01/04/2018. At his follow-up visit on 01/31/2018 he had developed some mild hand/foot syndrome. I did have him continue with his 3rd cycle of chemotherapy, but with the dosage of Xeloda reduced to 2000 mg twice a day. He apparently continued the treatment for 21 days. He was seen again on 03/01/2018. At that point his treatment was put on hold due to a decrease in his white blood cell count to 2900 with ANC 1400. As of 03/14/2018 he was able to begin cycle 4 at the same dosage, which he tolerated well. He then continued treatment at 3-week intervals. He began his 8th and final cycle of treatment on 06/06/2018. Surveillance CT scans of the chest, abdomen, and pelvis on 07/23/2018 showed a few noncalcified pulmonary nodules in the right upper lobe, the largest measuring 6 mm. Previously described upper abdominal lymph nodes measuring 8-9 mm along the celiac axis appeared stable. With those findings, he was then followed on observation/expectant management. He had a negative surveillance colonoscopy in September 2018. His other medical illnesses have been limited to type II diabetes and GERD/peptic ulcer disease. He is a nonsmoker. INTERIM HISTORY: Surveillance CT scans on 01/21/2019 showed indeterminant but stable complex cystic mass in the lower pole the left kidney measuring 2.0 cm. There were stable right hilar indeterminant lymph nodes and stable pleural plaques and right upper and lower lobe pulmonary nodules. Surveillance CT scans on 02/18/2020 showed no evidence for metastatic disease or disease progression within the chest, abdomen or pelvis. Bilateral pleural plaques and a 7 mm soft tissue pulmonary nodule along the superior right major fissure appeared stable. He continued observation/expectant management. He is seen for a scheduled visit. He has been feeling fine. He has not had as much energy since his chemotherapy, but he does have normal activity. He has had to quit work to care for his , who has become chronically ill following COVID-19 virus infection. His ECOG score is 0. He has good appetite. He has not had fever. He sometimes has sweating at night. He has some sinus drainage and cough. He does not complain of shortness of breath or chest pain. He has no GI complaints other than his bowels tend to be loose and they are sometimes urgent. Bladder function remains adequate, but he does have nocturia 3 or 4 times. He has no significant joint or bone pain. He does not complain of headache. He sometimes has orthostatic lightheadedness at night. He has no focal neurologic symptoms. Medications: Aspirin 1 Tablet (of 81 mg) Oral daily, Cholecalciferol 1 Tablet (of 25 mcg ) Tablet, chewable Oral daily, [facility] Magnesium 1 Tablet (of 250 mg) Oral daily, Flomax 1 Capsule (of 0.4 mg) Oral daily, focus factor 1 Tablet Capsule Oral daily, Lisinopril 1 Tablet Oral daily, MetFORMIN HCl 1 (500 mg) Tablet Oral b.i.d., Multivitamin Men 1 Tablet Oral daily, Turmeric 1 Tablet Miscellaneous Oral daily, Vitamin B12 1 Miscellaneous Oral daily, Vitamin C 1 Capsule (of 500 mg) Oral daily Allergies: No Known Allergies. Vital Signs: Performed on Jul 23, 2020 14:43 Height - 74.00 in Weight - 286.6 lbs (HIGH) BSA - 2.53 sq.m BMI - 36.80 (HIGH) Temperature - 98.3 F (LOW) Pulse - 70 /min Respiration - 17 /min O2 Sat - 99 % Pain - 0 Physical Examination: Constitutional - He looks good generally, Eyes - Sclerae nonicteric. Conjunctivae clear, ENMT - No lesions noted in the oral cavity, Hematologic/Lymphatic - No cervical, clavicular, or axillary adenopathy, Respiratory - Lungs are clear with good air movement bilaterally, Cardiovascular - Heart rhythm is regular with bradycardia. There is a III/ systolic murmur. There is no gallop or rub noted, Abdomen - Mildly distended but soft. He has a small incisional hernia. Liver and spleen are not enlarged. There is no abdominal mass or ascites noted and there is no inguinal adenopathy, Extremities - There are venous stasis changes bilaterally. There is mild edema, Neurologic - No focal neurologic deficits noted. Lab/Imaging: Test performed on Jul 23, 2020 13:03 Sodium 138 mmol/L Potassium 4.1 mmol/L Chloride 102 mmol/L Est Avg Glucose (eAG) 111 mg/dL CO2 30 mmol/L Anion Gap 10.1 BUN 13 mg/dL Creatinine 0.8 mg/dL Cr Clearance (Est) 136.9800 mL/min Glucose 139 mg/dL Osmolality - Calculated 288 mOsm/kg Calcium 8.9 mg/dL Protein, Total 6.9 g/dL Albumin 4.1 g/dL Globulin 2.8 g/dL Bilirubin, Total 0.9 mg/dL ALT (SGPT) 8 U/L AST (SGOT) 17 U/L Alkaline Phosphatase 56 IU/L Hemoglobin A1C % 5.5 % WBC 4.0 10 3/uL RBC 3.81 10 6/uL HGB 11.9 g/dL HCT 36.7 % MCV 96.3 fL MCH 31.2 pg MCHC 32.4 g/dL RDW 13.9 % Platelet Count 137 10 3/cmm MPV 10.8 fL Neutrophils 1.66 10 3/uL Lymphocytes 1.4 10 3/uL Monocytes 0.8 10 3/uL Eosinophils 0.1 10 3/uL Basophils 0.0 10 3/uL Neutrophil % 41.2 % Lymphocyte % 33.4 % Monocyte % 20.5 % Eosinophil % 1.7 % Basophils % 1.0 % NRBC % 0 % CEA 2.2 ng/mL Problem List: 1. Grade 2 invasive adenocarcinoma of the sigmoid colon, stage IIB (T4a, N0, M0). His tumor was found to be MMR proficient. His Oncotype DX showed a recurrence score of 25, correlating with a 3-year risk of recurrence with surgery alone estimated at 25% for a T4 tumor. He underwent hand-assisted laparoscopic sigmoid colectomy on 10/04/2017. 2. He had CT evidence of a 2 cm cystic mass involving the lower pole of the left kidney, felt to be indeterminate. 3. Type II diabetes. 4. He had EGD evidence of GERD and chronic gastric ulcer. Problems Addressed with this Encounter and Plan: 1. Grade 2 invasive adenocarcinoma of the sigmoid colon, stage IIB (T4a, N0, M0). His tumor was found to be MMR proficient. He underwent hand-assisted laparoscopic sigmoid colectomy on 10/04/2017. His Oncotype DX showed a recurrence score of 25, correlating with a 3-year risk of recurrence with surgery alone estimated at 25% for a T4 tumor. With those findings, he was given adjuvant chemotherapy with 8 cycles of Xeloda, completed in May 2018. He was then followed on observation/expectant management. At this point he appears to be doing well clinically. Thus far there has been no evidence of recurrence of the colon cancer. He remains on observation/expectant management. I will plan a follow-up visit in February, at which time he will be due for his annual surveillance CT scans. 2. He had CT evidence of a 2 cm cystic mass involving the lower pole of the left kidney, felt to be indeterminate. It has been stable on follow-up CT scans. It requires ongoing surveillance. Signed By: Raj Lindsey M.D. <<Signature on File>>
== END 2020-07-23 12:51 | disposition home or self-care (01) ==
LOC: ONCMED 12:53
PROVIDERS: PCP Family Medicine; Visit Provider Internal Medicine Medical Oncology
DX: Z08 Encounter for follow-up examination after completed treatment for malignant neoplasm (principal); Z85.038 Personal history of other malignant neoplasm of large intestine; Z90.49 Acquired absence of other specified parts of digestive tract; Z92.21 Personal history of antineoplastic chemotherapy; N28.89 Other specified disorders of kidney and ureter
CPT/HCPCS: 36415; 80053; 82378; 83036; 85025; G0463

== ENCOUNTER → 2020-08-14 14:42 | Outpatient (BNVA) | payer MEDICARE, SELFPAY | PROVIDERS: PCP Family Medicine; Visit Provider Nurse Practitioner Family | DX: Z20.822 Contact with and (suspected) exposure to COVID-19 (principal) | CPT/HCPCS: 87635 ==

== ENCOUNTER → 2020-11-10 14:44 | Outpatient (BNVA) | payer MEDICARE, SELFPAY | PROVIDERS: PCP Family Medicine; Visit Provider Family Medicine | DX: I10 Essential (primary) hypertension (principal); E11.9 Type 2 diabetes mellitus without complications; R06.02 Shortness of breath; R01.1 Cardiac murmur, unspecified; R19.7 Diarrhea, unspecified | CPT/HCPCS: 80053 ==

== ENCOUNTER 2020-11-19 12:09 | Outpatient (CLI) | payer MEDICARE, SELFPAY ==
--- NOTE | 2020-11-19 12:45 | USCV_ITS ---
Raj Herrera Age: 75 Gender: M : 1945 Exam Date: 11/19/2020 12:22 Ordering Phys: Shila Gaspar MD Technologist: Exam Location: [facility] [place] Indication: MR BP: 134 / 82 HR: 47 Rhythm: Sinus Technical Quality: Fair MEASUREMENTS (Male / Female) Normal Values 2D ECHO LV Diastolic Diameter PLAX 5.4 cm 4.2 - 5.9 / 3.9 - 5.3 cm LV Systolic Diameter PLAX 3.9 cm IVS Diastolic Thickness 0.9 cm 0.6 - 1.0 / 0.6 - 0.9 cm IVS Systolic Thickness 1.5 cm LVPW Diastolic Thickness 1.0 cm 0.6 - 1.0 / 0.6 - 0.9 cm LVPW Systolic Thickness 1.0 cm LVOT Diameter 2.0 cm LV Ejection Fraction 2D Teich 53.0 % LV Ejection Fraction MOD 2C 55.0 % LV Ejection Fraction 2C AL 57.0 % LA Diameter 2.0 cm LA Width 4.8 cm LA Height 5.5 cm RA Width 5.4 cm RA Height 4.6 cm Aorta at Sinotubular Diameter 3.5 cm M-MODE LV Diastolic Diameter MM 5.9 cm 4.2 - 5.9 / 3.9 - 5.3 cm IVS Diastolic Thickness MM 1.1 cm 0.6 - 1.0 / 0.6 - 0.9 cm LVPW Diastolic Thickness MM 1.6 cm 0.6 - 1.0 / 0.6 - 0.9 cm RV Diastolic Diameter MM 1.8 cm MV E Point Septal Separation 1.2 cm DOPPLER AV Peak Velocity 276.0 cm/s LVOT Peak Velocity 95.0 cm/s AV Area Cont Eq vti 1.1 cm squared AV Area Cont Eq pk 1.1 cm squared TR Peak Velocity 256.3 cm/s TR Peak Gradient 26.3 mmHg TV Peak E Velocity 85.0 cm/s Right Atrial Pressure 3.0 mmHg Pulmonary Artery Systolic Pressu 29.3 mmHg PV Peak Velocity 96.0 cm/s FINDINGS Left Ventricle Normal left ventricular cavity size. Moderately decreased left ventricular systolic function. Left ventricular ejection fraction is estimated at 40 %. There appeared to be global hypokinesis. Right Ventricle The right ventricle is normal in size and function. Right Atrium The right atrium is normal in size. Left Atrium The left atrium is normal in size. Mitral Valve Mildly thickened mitral valve. No mitral valve stenosis. Moderate mitral valve regurgitation. Aortic Valve Moderate aortic valve calcification. Moderate aortic valve stenosis, mean gradient 14 mmHg, СВЕТЛАНА 1.1 cm squared. Trace aortic valve regurgitation. Tricuspid Valve Structurally normal tricuspid valve without significant stenosis or regurgitation. Pulmonary artery systolic pressure is normal. Pulmonic Valve Structurally normal pulmonic valve without significant stenosis. There is no pulmonic regurgitation. Pericardium Normal pericardium without effusion. Aorta Normal ascending aorta dimension. CONCLUSIONS 1-Normal left ventricular cavity size. Moderately decreased left ventricular systolic function. Left ventricular ejection fraction is estimated at 40 %. There appeared to be global hypokinesis. 2-Moderate aortic valve calcification. Moderate aortic valve stenosis, mean gradient 14 mmHg, СВЕТЛАНА 1.1 cm squared. Trace aortic valve regurgitation. 3-Mildly thickened mitral valve. No mitral valve stenosis. Moderate mitral valve regurgitation. 4-There is no pericardial effusion. 5-Pulmonary artery systolic pressure is within normal limits. 6-Right atrial pressure is around 5 mm of mercury. Joycelyn Villalobos MD (Electronically Signed) Final Date: 20 November 2020 21:44 S
== END 2020-11-19 12:10 | disposition home or self-care (01) ==
LOC: RAD 12:11
PROVIDERS: PCP Family Medicine; Visit Provider Family Medicine
DX: I10 Essential (primary) hypertension (principal); R06.02 Shortness of breath; I34.0 Nonrheumatic mitral (valve) insufficiency; I35.0 Nonrheumatic aortic (valve) stenosis
CPT/HCPCS: 83036; 93306

== ENCOUNTER → 2021-02-01 09:41 | Outpatient (BNVA) | payer MEDICARE, SELFPAY | PROVIDERS: PCP Family Medicine; Visit Provider Internal Medicine Cardiovascular Disease | DX: I50.22 Chronic systolic (congestive) heart failure (principal) | CPT/HCPCS: 80048; 83735; 83880 ==

== ENCOUNTER 2021-02-05 10:09 | Outpatient (CLI) | payer MEDICARE, SELFPAY ==
--- NOTE | 2021-02-05 | CT_ITS ---
WS: [id number] CT scan of the chest With IV contrast, CT scan of the abdomen and pelvis with IV contrast and oral contrast. Additional two-dimensional coronal and sagittal reconstruction was performed. 02/05/2021 Clinical Data: COLON CANCER Comparison: CT chest abdomen and pelvis, 02/18/2020. DLP: 2731.[address] scans at [facility] use at least one of these dose optimization techniques: automat ed exposure control; mA and/or kV adjustment per patient size (includes targeted exams where dose is matched to clinical indication); or iterative reconstruction. Findings: Chest: No masses or effusions are seen. The small right lower lobe nodule seen best on image 18 of 63 has n ot changed. The heart size is normal with no pericardial effusion. There is calcification of the coronary arterie s. Minimal pleural calcifications are noted. No pneumonia or pneumothorax is present. The pulmonary arterial system and thoracic aorta demonstrate no abnormalities or dilatations. There is no axillary or significant mediastinal adenopathy. There is a hiatal hernia. No bony metasta tic disease seen in the thorax. Abdomen/pelvis: The liver, spleen, adrenal glands and pancreas are normal. There are gallstones in the gallbladder. The kidneys show equal bilateral contrast excretion with no cyst or masses. The abdominal aorta is normal in size. No appendicitis or diverticulitis is seen. Oral contrast is in the stomach and small bowel and there is no bowel dilatation. No abscess, adenopathy, ascites, mass, obstruction or free air is seen. There is an umbilical hernia which can contains a minimal length of small bowel. The rectosigmoid anastomo sis has not changed. The bladder is unremarkable. No inguinal hernia is seen. The bones of the lower thorax, lumbar spine, pelvis, and hips show no metastatic lesions. CT/CT chest abd pel w con* Impression: 1. Negative for metastatic disease to the thorax, abdomen or pelvis. 2. No change in stable right lower lobe nodule and cholelithiasis.
[2021-02-05] MEDS: iohexol 300 mg/mL 100 mL Btl IV (11:37)
[2021-02-05] MEDS: iohexol 300 mg/mL 50 mL Btl PO (11:38)
== END 2021-02-05 10:10 | disposition home or self-care (01) ==
PROVIDERS: PCP Family Medicine; Visit Provider Internal Medicine Medical Oncology
DX: C18.7 Malignant neoplasm of sigmoid colon (principal)
CPT/HCPCS: 71260; 74177; Q9967

== ENCOUNTER 2021-02-25 09:54 | Outpatient (CLI) | payer MEDICARE, SELFPAY ==
[2021-02-25 11:20] LABS: Basophils % 0.9 %; Eosinophils # 0.1 10^3/uL (0.0-0.8); Eosinophils % 1.4 %; Hematocrit 34.4 % (42.0-52.0); Hemoglobin 11.6 g/dL (11.7-16.6); Lymphocytes # 1.5 10^3/uL (0.8-4.8); Lymphocytes % 34.5 %; Mean Corpuscular HGB Conc 33.7 g/dL (30.0-36.0); Mean Platelet Volume 11.4 fL (7.4-10.4); Monocytes # 0.8 10^3/uL (0.2-0.9); Monocytes % 17.7 %; Neutrophils # 1.84 10^3/uL (1.8-7.7); Neutrophils % 43.6 %; Nucleated Red Blood Cells % 0 %; Platelet Count 112 10^3/cmm (130-400); Red Blood Count 3.74 10^6/uL (4.1-5.3); Red Cell Distribution Width 14.4 % (12.1-15.1); White Blood Count 4.2 10^3/uL (4.0-10.0)
[2021-02-25 12:07] LABS: Alanine Aminotransferase 9 U/L (0-41); Albumin Level 4.1 g/dL (3.5-5.2); Alkaline Phosphatase 51 IU/L (40-130); Anion Gap 15.1 (5-19); Aspartate Amino Transferase 16 U/L (0-40); Blood Urea Nitrogen 13 mg/dL (8-23); Calcium 8.6 mg/dL (8.5-10.5); Carbon Dioxide 22 mmol/L (22-29); Chloride 101 mmol/L (98-107); Globulin 2.9 g/dL (1.3-4.6); Glucose 128 mg/dL (65-115); Osmolality Calculated 280 mOsm/kg (285-295); Potassium 4.1 mmol/L (3.5-5.1); Sodium 134 mmol/L (136-145); Total Bilirubin 0.7 mg/dL (0.15-1.2)
[2021-02-25 12:51] LABS: Estmated Average Glucose 103; Hemoglobin A1C 5.2 % (4.0-6.0)
[2021-02-25 15:50] LABS: Iron 89 ug/dL (59-158); Percent Saturation 39.2 % (20-50); Total Iron Binding Capacity 227 mcg/dl; Unsaturated Iron Binding 138 ug/dL (112-347)
--- NOTE | 2021-02-27 12:34 | ONC FU_ITS ---
Dr. Lindsey Patient Follow-Up Note Patient: Raj Herrera Unit #: [id number]: 1945 Dicatated By: Raj Lindsey M.D.Date of Visit:Feb 25, 2021 Onc Med Follow-up/Prog Note Chief Complaint: Colon cancer. 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 He was found to have a positive stool hemoccult test. He then underwent EGD and colonoscopy on 09/22/2017. The EGD showed evidence of reflux esophagitis along with gastritis and a chronic appearing gastric ulcer. The colonoscopy showed a partially obstructing, malignant appearing mass in the mid sigmoid colon. The findings are otherwise limited to diverticulosis. Biopsy of the mass showed adenomatous epithelium with high-grade dysplasia. Staging CT of the abdomen/pelvis showed some mucosal thickening near the region of the hepatic flexure and also at the descending colon and sigmoid colon junction, but a discrete mass was not identifiable. A 2 cm cystic mass involving the lower pole of the left kidney was indeterminate. Further evaluation with ultrasound was recommended. There was no evidence of metastatic disease, though. He was referred to Dr. Bennett, and on 10/04/2017 he underwent hand-assisted laparoscopic sigmoid colectomy. At the time there was no evidence of metastatic involvement in the liver or peritoneal metastatic involvement. He had no complications with the procedure. Pathology showed moderately differentiated (grade 2) invasive adenocarcinoma measuring 3.5 cm. The tumor was noted to extend through the muscularis with invasion of the visceral peritoneum. There was no lymphovascular invasion identified, and there was no involvement in 12 lymph nodes. I had seen him initially on 10/30/2017, and at that time had discussion with him regarding possibility of taking adjuvant chemotherapy, as he would potentially be at higher risk for recurrence with a T4 primary lesion. He indicated that he was willing to at least consider it. As such, I had requested further evaluation with an Oncotype DX assay. It showed a recurrence score of 25, correlating with a 3-year risk of recurrence with surgery alone estimated at 25% for a T4 tumor. He began adjuvant chemotherapy with Xeloda on 12/14/2017. The dosage calculated to 3000 mg bid for 14 days. He tolerated it well, and he was able to proceed with cycle 2 on 01/04/2018. At his follow-up visit on 01/31/2018 he had developed some mild hand/foot syndrome. I did have him continue with his 3rd cycle of chemotherapy, but with the dosage of Xeloda reduced to 2000 mg twice a day. He apparently continued the treatment for 21 days. He was seen again on 03/01/2018. At that point his treatment was put on hold due to a decrease in his white blood cell count to 2900 with ANC 1400. As of 03/14/2018 he was able to begin cycle 4 at the same dosage, which he tolerated well. He then continued treatment at 3-week intervals. He began his 8th and final cycle of treatment on 06/06/2018. Surveillance CT scans of the chest, abdomen, and pelvis on 07/23/2018 showed a few noncalcified pulmonary nodules in the right upper lobe, the largest measuring 6 mm. Previously described upper abdominal lymph nodes measuring 8-9 mm along the celiac axis appeared stable. With those findings, he was then followed on observation/expectant management. He had a negative surveillance colonoscopy in September 2018. His other medical illnesses include hypertension, type II diabetes and GERD/peptic ulcer disease. He also has aortic stenosis and a history of congestive heart failure. He is a nonsmoker. INTERIM HISTORY: His CT scans on 01/21/2019 showed indeterminant but stable complex cystic mass in the lower pole the left kidney measuring 2.0 cm. There were stable right hilar indeterminant lymph nodes and stable pleural plaques and right upper and lower lobe pulmonary nodules. CT scans on 02/18/2020 showed no evidence for metastatic disease or disease progression within the chest, abdomen or pelvis. Bilateral pleural plaques and a 7 mm soft tissue pulmonary nodule along the superior right major fissure appeared stable. He continued observation/expectant management. His surveillance CT scans on 02/05/2021 showed no evidence of metastatic disease in the chest, abdomen, and pelvis. An umbilical hernia was noted to contain a minimal length of small bowel. He is seen for a scheduled visit. He has not been feeling very good. He says his energy has been terrible. He gets out of breath with activity, and is activity has been limited. His ECOG score is 1. He has good appetite. He has no fever or night sweats. He has just occasional cough. He does not have resting dyspnea or chest pain. He has no GI complaints other that his stools are occasionally runny and urgent. Bladder function remains adequate, though he does have nocturia up to 3 times. He has no significant joint or bone pain. He does not complain of headache. He sometimes has dizziness. He has no numbness/tingling or other focal neurologic symptoms. Medications: Aspirin 1 Tablet (of 81 mg) Oral daily, Cholecalciferol 1 Tablet (of 25 mcg ) Tablet, chewable Oral daily, [facility] Magnesium 1 Tablet (of 250 mg) Oral daily, Flomax 1 Capsule (of 0.4 mg) Oral daily, focus factor 1 Tablet Capsule Oral daily, Lisinopril 1 Tablet Oral daily, MetFORMIN HCl 1 (500 mg) Tablet Oral b.i.d., Multivitamin Men 1 Tablet Oral daily, Turmeric 1 Tablet Miscellaneous Oral daily, Vitamin B12 1 Miscellaneous Oral daily, Vitamin C 1 Capsule (of 500 mg) Oral daily Allergies: No Known Allergies. Vital Signs: Performed on Feb 25, 2021 13:59 Height - 74.00 in Weight - 284.4 lbs (LOW) BSA - 2.52 sq.m BMI - 36.52 (HIGH) Temperature - 98 F (LOW) Pulse - 70 /min Respiration - 18 /min BP - 113/60 mm(hg) O2 Sat - 98 % Pain - 0 Fatigue - 7 Physical Examination: Constitutional - He looks pretty good generally, Eyes - Sclerae nonicteric. Conjunctivae clear, ENMT - No lesions noted in the oral cavity, Hematologic/Lymphatic - No cervical, clavicular, or axillary adenopathy, Respiratory - Lungs are clear with good air movement bilaterally, Cardiovascular - Heart rhythm appears regular, though it sounds like he may be in bigeminy. There is a III/ systolic murmur. There is no gallop or rub noted, Abdomen - Mildly distended but soft. Liver and spleen are not enlarged. There is no abdominal mass or ascites noted and there is no inguinal adenopathy, Extremities - There are venous stasis changes bilaterally. There is no edema, Neurologic - No focal neurologic deficits noted. Lab/Imaging: Test performed on Feb 25, 2021 10:32 Iron 89 mcg/dL Sodium 134 mmol/L Iron Binding Capacity (TIBC) 227 mcg/dl Potassium 4.1 mmol/L % Iron Saturation 39.2 % Chloride 101 mmol/L CO2 22 mmol/L UIBC 138 mcg/dL Anion Gap 15.1 BUN 13 mg/dL Creatinine 0.8 mg/dL Cr Clearance (Est) 134.8700 mL/min Glucose 128 mg/dL Osmolality - Calculated 280 mOsm/kg Calcium 8.6 mg/dL Protein, Total 7.0 g/dL Albumin 4.1 g/dL Globulin 2.9 g/dL Bilirubin, Total 0.7 mg/dL ALT (SGPT) 9 U/L AST (SGOT) 16 U/L Alkaline Phosphatase 51 IU/L WBC 4.2 10 3/uL RBC 3.74 10 6/uL HGB 11.6 g/dL HCT 34.4 % MCV 92.0 fl MCH 31.0 pg MCHC 33.7 g/dL RDW 14.4 % Platelet Count 112 10 3/cmm MPV 11.4 fL Neutrophils 1.84 10 3/uL Lymphocytes 1.5 10 3/uL Monocytes 0.8 10 3/uL Eosinophils 0.1 10 3/uL Basophils 0.0 10 3/uL Neutrophil % 43.6 % Lymphocyte % 34.5 % Monocyte % 17.7 % Eosinophil % 1.4 % Basophils % 0.9 % NRBC % 0 % CEA 2.0 ng/mL Problem List: 1. Grade 2 invasive adenocarcinoma of the sigmoid colon, stage IIB (T4a, N0, M0). His tumor was found to be MMR proficient. His Oncotype DX showed a recurrence score of 25, correlating with a 3-year risk of recurrence with surgery alone estimated at 25% for a T4 tumor. 2. He had CT evidence of a 2 cm cystic mass involving the lower pole of the left kidney, felt to be indeterminate. 3. Hypertension. 4. Type II diabetes. 5. Aortic stenosis. 6. History of congestive heart failure. 7. He had EGD evidence of GERD and chronic gastric ulcer. Problems Addressed with this Encounter and Plan: 1. 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 His tumor was found to be MMR proficient. He underwent hand-assisted laparoscopic sigmoid colectomy on 10/04/2017. His Oncotype DX showed a recurrence score of 25, correlating with a 3-year risk of recurrence with surgery alone estimated at 25% for a T4 tumor. With those findings, he was given adjuvant chemotherapy with 8 cycles of Xeloda, completed in May 2018. He was then followed on observation/expectant management. As of his follow-up visit in July 2019 when he had been doing well clinically. He comes in now with complaints of exertional dyspnea and a significant decline in his activity tolerance. The cause is uncertain, but the main concern is that it may be related to his aortic stenosis. He been seeing Dr. Sharp for cardiology follow-up, and he has been scheduled for a stress test. Thus far there has been no evidence for recurrence of the colon cancer. He continues expectant management. I will just plan to see him again in 1 year. 2. He had CT evidence of a 2 cm cystic mass involving the lower pole of the left kidney, felt to be indeterminate. It had been stable on follow-up CT scans. The current CT reported no evidence for renal cyst or mass. Signed By: Raj Lindsey M.D. <<Signature on File>>
== END 2021-02-25 09:55 | disposition home or self-care (01) ==
LOC: ONCMED 09:56
PROVIDERS: PCP Family Medicine; Visit Provider Internal Medicine Medical Oncology
DX: Z08 Encounter for follow-up examination after completed treatment for malignant neoplasm (principal); Z85.038 Personal history of other malignant neoplasm of large intestine; R06.00 Dyspnea, unspecified; N28.1 Cyst of kidney, acquired; I10 Essential (primary) hypertension; E11.9 Type 2 diabetes mellitus without complications; I35.0 Nonrheumatic aortic (valve) stenosis; Z79.82 Long term (current) use of aspirin; Z79.899 Other long term (current) drug therapy; Z79.84 Long term (current) use of oral hypoglycemic drugs; Z92.21 Personal history of antineoplastic chemotherapy
CPT/HCPCS: 36415; 80053; 82378; 83036; 83540; 83550; 85025; 99214

== ENCOUNTER 2021-03-03 07:30 | Outpatient (CLI) | payer MEDICARE, SELFPAY ==
[2021-03-03 07:39] VITALS: BMI 35.0
--- NOTE | 2021-03-03 07:40 | NMCV_ITS ---
NM judi perf SPECT r/s* [id number] Raj Herrera Age: 75 Gender: M : 1945 Exam Date: 03/03/2021 07:40 Ordering Phys: Maci Sharp MD ([email or web address]) Technologist: AQUILINO Alex Exam Location: [facility] Indications: SHORTNESS OF BREATH STRESS TEST Please see [facility] IMAGE PROTOCOL Rest/Stress 1 Lexiscan Day Radiopharmaceutical Dose (mCi) Administration Site Administered by Rest: Tc-99m 10.6 IV AQUILINO Alex Sestamibi Stress:Tc-99m 33.0 IV AQUILINO Ventura Sestamibi Rest: 03-Mar-2021 60 Discovery 630 Stress: 03-Mar-2021 30 Discovery 630 0.4mg Lexiscan. Images obtained in supine and prone position. SPECT RESULTS Technical Quality: Excellent Raw Data Analysis: Normal Image Corrections: No attenuation or motion correction applied Summed Stress Score: 14 Summed Rest Score: 15 Summed Difference Score: 3 PERFUSION FINDINGS Large sized perfusion abnormality of moderate severity of basal to apical inferior, mid septal, apical septal, mid to apical anterior, apical lateral wheeler on rest images with subtle reversibility in stress images. FUNCTIONAL RESULTS (calculated via Gated SPECT) Stress Image LV EF (%): 30 Stress EDV (mL):256 TID: 0.97 Stress ESV (mL):178 FUNCTIONAL FINDINGS: The left ventricle is dilated. Transient Ischemia Dilatation of 0.97. There is moderately reduced left ventricular global systolic function. The left ventricular ejection fraction is reduced with a value of 30%. There is moderately to severely decreased wall thickening in septal, inferior and apical wheeler. Markedly increased end-diastolic end-systolic volumes. IMPRESSIONS 1. Large sized perfusion abnormality of moderate severity of basal to apical inferior, mid to apical septal, mid to apical anterior and apical lateral wheeler with subtle reversibility in stress images. 2. 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 3. There is moderately reduced left ventricular global systolic function, LVEF= 30%. 4. There is moderately to severely decreased wall thickening in septal, inferior and apical wheeler. 5. No prior similar studies to compare. Maci Sharp MD (Electronically Signed) Final Date: 06 March 2021 14:43 S
--- NOTE | 2021-03-03 07:40 | ECG_ITS ---
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 Interpretive Statements NAME OF STUDY: LEXISCAN SESTAMIBI STRESS TEST INDICATION: Chest Pain; MORGAN, LBBB PROCEDURE: At the baseline, the blood pressure was 142/72 mmHg, oxygen saturation 95% with a heart rate of 67 bpm. The electrocardiogram showed normal sinus rhythm, normal axis. Left bundle branch block. The Lexiscan was infused over a period of 20 seconds. A total of 0.4 milligrams of Lexiscan was infused. The stress phase was continued for a total of 5 minutes. Heart rate at the end of the stress phase was 84 bpm, oxygen saturation 95% with a blood pressure of 134/61 mmHg. The EKG at the peak infusion revealed sinus rhythm with no significant ST-T wave changes. The study was terminated due to protocol completion. Isolated PVCs were noted during Lexiscan infusion and at peak exercise. Sestamibi was injected 20 seconds after the Lexiscan infusion. Isolated PVCs noted in recovery. Blood pressure at the end of the recovery phase was 123/58 mmHg, oxygen saturation 95% with a heart rate of 79 beats per minute. CONCLUSION: 1. Uninterpretable EKG with LexiScan infusion given baseline left bundle branch block. 2. No LexiScan induced chest pain or cardiac arrhythmia. 3. Normal blood pressure and heart rate response. 4. Sestamibi/sestamibi perfusion scan pending; see separate report. RESULTS TO KATARINA GARDNER Electronically Signed On 03-06-2021 14:30:50 CDT by Maci Sharp M.D. [id number]
[2021-03-03] MEDS: regadenoson 0.4 Mg/5 ml Syringe IVP (09:24)
[2021-03-03 09:50] VITALS: BP 126/83; PULSE 62
== END 2021-03-03 07:31 | disposition home or self-care (01) ==
PROVIDERS: PCP Family Medicine; Visit Provider Internal Medicine Cardiovascular Disease
DX: R07.9 Chest pain, unspecified (principal); R06.09 Other forms of dyspnea; I44.7 Left bundle-branch block, unspecified
CPT/HCPCS: 78452; 93017; A9500; J2785

== ENCOUNTER → 2021-04-20 08:28 | Outpatient (BNVA) | payer MEDICARE, SELFPAY | PROVIDERS: PCP Family Medicine; Visit Provider Internal Medicine Cardiovascular Disease | DX: R94.39 Abnormal result of other cardiovascular function study (principal); Z01.818 Encounter for other preprocedural examination; Z20.822 Contact with and (suspected) exposure to COVID-19 | CPT/HCPCS: 80048; 85025; 85610; 87635 ==

== ENCOUNTER 2021-04-26 09:00 | Outpatient (CLI) | payer MEDICARE, SELFPAY ==
[2021-04-26] VITALS (34 sets, daily range): BP systolic 106–143; BP diastolic 50–95; PULSE 59–85; RESP 11–24; TEMP 36.3–36.6; O2SAT 89–99; BMI 34.7
--- NOTE | 2021-04-26 09:00 | XACV_ITS ---
Ht: 188 cm Wt: 129 kg BSA: 2.64 m2 Gender: Male : 1945 Any Known Allergies: No known allergies Exam Priority: Routine Procedure(s): Procedure Description: Diagnostic procedure Procedure Description: PCI procedure Procedure Description: Drug Eluting Coronary Stent Procedure Description: PTCA Procedure Description: Miscellaneous Procedure Description: ACT Procedure Description: Coronary Angiography Procedure Description: Pressure Wire Griselda NASSAR; Diagnostic Cath Status: Elective Diagnostic Findings * Left Main has no disease. * Circumflex has no disease. * Right Coronary Artery has no disease. * Proximal Left Anterior Descending: significant 80% stenosis, ALENA: 3 flow, iFR performed: ratio is 0.87. * Coronary angiography shows right dominance. PCI Status: Elective PCI Indication: New Onset Angina <= 2 months Interventional Findings * IFR: After equalizing the distal and proximal pressure of IFR wire proximal to the lesion, mid LAD lesion was crossed with IFR wire at then end of two minutes FFR was recorded as 0.87, which is significant . * Proximal Left Anterior Descendin% stenosis treated with a Drug Eluting Stent. 0% residual stenosis, ALENA: 3 flow. Conclusions 1. There is significant coronary artery disease with one vessel disease. 2. Proximal Left Anterior Descending was treated with a Drug Eluting Stent. Recommendations * Continue current medical management and risk factor modification. Pressures Phase:Rest AO : 144 / 16 ( 29 ) @ 8:37:00 AM 134 / 62 ( 90 ) @ 9:07:00 AM 140 / 63 ( 92 ) @ 9:08:00 AM Clinical Evaluation EBL: 5mL-10mL Procedural Details Procedure Consent Obtained. Current Diagnosis : Chest Pain. Pre-Procedure Time Out. Identified patient by full name and date of as verbalized by the patient/guarantor. Does the consent match the physician's order: Yes. Accurate & Complete Informed Consent: Yes. Inpatient/Outpatient History & Physical on Chart: Yes. If H&P is completed, is and addenduem needed: No; If yes, is the addendum complete: N/A. Visualize and Verify Site with Patient/Guarantor: N/A. Relevant Radiology Images available: Yes. Pre-op teaching completed and patient verbalized understanding. The risks, benefits, and alternatives of sedation and/or procedure were discussed by physician. The patient agrees to continue. Procedure started. [facility] Clinical Fraility Score: 3: Managing Well. Contract Officer Indications: Suspected CAD. Chest Pain Symptom Assessment: Typical Angina Symptoms. Correct patient, site and procedure confirmed by cath team. Current diagnosis: Chest Pain. PERRLA. Strong, equal hand marble polisher bilaterally. Lungs clear x 5 lobes. IV Site on Arrival: 22 gauge in the left hand. IV Fluids: 0.9% NaCl at KVO. 0 mL infused prior to cardiac cath lab manager. Pre Procedural Pulses: bilateral dorsalis pedis was 3+. Pre Procedural Pulses: bilateral posterior tibial was 2+. Pre Procedural Pulses: bilateral radial was 3+. Oxygen started at 2liters/min via nasal canula. right groin was prepped with chloroprep then draped in the usual sterile fashion. right radial was prepped with chloroprep then draped in the usual sterile fashion. Physician notified. Baseline sample Acquired. HR: 66 BPM. Physician arrived. Physician scrubbed in. Immediate Pre-Procedure Time Out. Correct Patient: Yes; Correct Procedure: Yes; Correct Site: Yes; Correct Patient Position: Yes; Correct Supplies: Yes; Dried Flammable Prep: Yes; Blood Products Available: N/A;. Lidocaine 1% infiltrated to the right radial. Arterial access obtained. wire unable to advance. needle and wire removed. Arterial access obtained. A 5 lao TIG catheter in over wire. Multiple views taken of left coronary artery. Catheter redirected to the RCA. Multiple views taken of right coronary artery. Catheter removed over the standard wire. 6 lao XB 3.5 guide catheter was inserted over the wire. Guide catheter out. 6 lao JL 3.5 guide catheter was inserted over the wire. FFR wire inserted and advanced to the Mid LAD. IFR: 0.87 Wire pulled back before the lesion and the IFR results were 0.98. Wire out. [place] guidewire was advanced through the guide catheter to lesion in the mid LAD. Family updated. Inflation Number : 1 A MDT R JOHN PAUL 4.0X15 CLAYTON -Lot Number# [id number] EXP: 07/29/2022 was prepped and advanced across the Mid LAD. The stent was deployed at 12 HEIDI for 0:22 seconds. Stent balloon out over wire. Results checked. ACT drawn. Results 267 seconds. Therapeutic limits - pre-heparin administration 90-150 seconds and monitoring heparin during a vascular procedure >250 seconds. Inflation number : 2 A MDT NC EUPHORA RX [id number] BALLOON was prepped and advanced across the Mid LAD , then inflated to 14 HEIDI for 0:22 seconds. Inflation number: 3 The MDT NC EUPHORA RX [id number] BALLOON was reinflated across the Mid LAD, to 10 HEIDI for 0:12 seconds. Inflation number: 4 The MDT NC EUPHORA RX [id number] BALLOON was reinflated across the Mid LAD, to 10 HEIDI for 0:09 seconds. Balloon out. Results checked. Wire out. A TR Band was successful obtaining hemostatsis at the Right Radial artery insertion site. Post Procedure: Pulses reassessed and unchanged. PERRLA. Strong, equal hand marble polisher bilaterally. No VTE prophylaxis required. Medication's Wasted: Lidocaine 1% = 16 mL. Medication's Wasted: Nitro = 49.4 mg. Medication's Wasted: Other =Adenosine 90 mg. Total IV fluids: 98 mL. PCI Indication: CAD (without ischemic symptoms). Post-op diagnosis: CAD with sig Mid LAD stenosis. Complications: none. Estimated blood loss: 5mL-10mL. Procedure completed. Patient transferred by bed to 1st floor. Access Site Site: Right Radial artery Sheath Size: 6 Fr Hemostasis Method: TR Band Hemostasis Success: Successful Procedure Medications Start: 10:14 AM Stop: : AM Medication: Fentanyl Amount: 50 mcg Route: I.V. Start: 10:19 AM Stop: 10: AM Medication: Versed Amount: 1 mg Route: I.V. Start: 10:28 AM Stop: 10:28 AM Medication: Nitrogylcerin Amount: 200 mcg Route: I.A. Start: 10:33 AM Stop: 10:33 AM Medication: Heparin Amount: 5000 units Route: I.V. Start: 11:07 AM Stop: 11:07 AM Medication: Heparin Amount: 6000 units Route: I.V. Start: 11:09 AM Stop: 11:09 AM Medication: Aggrastat 12.5 mg/250 mL Amount: 65 ml Route: I.V. bolus Start: 11:09 AM Stop: 11:09 AM Medication: Aggrastat 12.5 mg/250 mL Amount: 23.4 ml/hr Route: I.V. bolus Start: 11:14 AM Stop: 11:14 AM Medication: Nitrogylcerin Amount: 200 mcg Route: I.A. Start: 11:20 AM Stop: 11:20 AM Medication: Nitrogylcerin Amount: 200 mcg Route: I.A. I, the attending physician, have reviewed and verified all procedure medications. Yes, all medications given per verbal order History/Risk Factors Hypertension: Yes Dyslipidemia: Yes Peripheral Arterial Disease (PAD): No Myocardial Infarction (WI): No Obesity: No Renal Disease: No Tobacco Use: Former Prior Interventions PCI: No CABG: No Valve Surgery: No Report Signatures Finalized by Joycelyn Villalobos MD on 05/10/2021 11:45 PM
--- NOTE | 2021-04-26 09:52 | W.PM.OPSFHP ---
Same Day Surgery H&P Indication for Procedure/HPI DATE OF PROCEDURE: April 26, 2021 CHIEF COMPLAINT/INDICATIONFOR SURGICAL PROCEDURE: Shortness of breath, LV dysfunction, abnormal stress test PREOP DIAGNOSIS: CHF, LV dysfunction, abnormal stress test PLANNED PROCEDRUE: Operation Date: 04/26/21 10:00 Proposed Procedures p Cardiac Catheterization(Left) - Joycelyn Villalobos MD 75-year-old male patient of Dr. Sharp referred to us for worsening of symptoms of shortness of breath heart failure LV dysfunction abnormal stress test in LAD and RCA region for left heart cath. Patient has been explained all risk benefit and alternative for the procedure. He understand risk for stroke contrast-induced nephropathy major minor bleed urgent emergent vascular or bypass surgery he understand the risk of hematoma infection. He would like to proceed with it. He is a candidate for DAPT. Medications/Allergies* Home Medications Medication Instructions Recorded Confirmed Type aspirin 81 mg tablet,delayed 81 mg PO DAILY 07/30/19 04/23/21 History release multivitamin 1 tab PO QAM 07/30/19 04/23/21 History vitamin [id number] B1 oral liquid 1,000 ea PO DAILY 07/30/19 04/23/21 History cholecalciferol (vitamin D3) 50 2,000 unit PO DAILY 09/23/19 04/23/21 History mcg (2,000 unit) capsule coenzyme Q10 [Co Q-10] PO DAILY 01/14/21 04/01/21 History super beets 650 mg PO DAILY 01/14/21 04/23/21 History turmeric 500 mg PO DAILY 01/14/21 04/23/21 History zinc 50 mg tablet 50 mg PO DAILY 01/14/21 04/23/21 History tamsulosin 0.8 mg PO DAILY 04/23/21 04/23/21 History Allergies/Adverse Reactions Allergy/AdvReac Type Severity Reaction Status Date / Time No Known Allergies Allergy Verified 04/23/21 09:59 Pertinent History/Comorbid Conditions* Medical History (Updated 03/17/21 @ 16:16 by Maci Sharp MD) Abnormal stress test Aortic stenosis Benign prostatic hyperplasia with urinary frequency CHF (congestive heart failure) Essential (primary) hypertension H/O malignant neoplasm of colon We found his left sided lesion in 09/2017. Repeat exam in 2019 was negative. Hiatal hernia LBBB (left bundle branch block) Mitral valve regurgitation Type 2 diabetes mellitus Metformin intolerance (GI) Surgical History (Updated 09/23/19 @ 08:58 by Shila Gaspar MD) History of appendectomy History of shoulder surgery Family History (Updated 07/30/19 @ 09:02 by Vandana Dorado LPN) Dementia Cancer Social History Smoking and tobacco status: former smoker Alcohol intake: never Household members: spouse Housing: House Marital status: Current occupational status: employed History of recent travel: Yes ([place] and [place]) Details: local intermodal truck driver [employer] Out of state: Yes Out of country: No Current gender identity: Male Pertinent Exam Findings alert, oriented x 3 and clear to auscultation bilaterally Conscious Sedation Assessment PATIENT ASSESSED PRIOR TO SEDATION, WITH NO CHANGE NOTED: Yes AIRWAY EVAL/ANESTHESIA PLAN: ASA II, Risks, benefits & alternatives of sedation and/or procedure discussed and Patient agrees to continue as planned Recommendations Surgery/Procedure today Coding Level of Care Code Acute Vice President Of Academic Affairs for Morelia Ochoa
[2021-04-26] MEDS: diphenhydrAMINE 50 mg Capsule PO (09:57)
--- NOTE | 2021-04-26 12:15 | PC.NURSE ---
Pt returned from sleep lab technologist at approximately 1150. Pt had TR band to right wrist. No swelling hematoma or bleeding noted. Radial pulse palpable and full, capillary refill less than three seconds. Pt on a aggrastate drip at 23.4. Pt had no c/o pain or discomfort at the present time. no needs voiced. Call light in reach. Will cont to monitor.
[2021-04-26] MEDS: metoprolol succinate ER (24 HR) 25 mg Tablet 12.5 MG PO (15:35)
[2021-04-26] MEDS: aspirin 81 mg EC Tablet PO (15:35)
[2021-04-26] MEDS: lisinopril 10 mg Tablet PO (15:36)
[2021-04-26] MEDS: spironolactone 25 mg Tablet PO (15:36)
[2021-04-26] MEDS: tamsulosin 0.4 mg Capsule 0.8 MG PO (15:36)
--- NOTE | 2021-04-26 16:40 | PC.NURSE ---
TR Band removed at approximately 1615. Pt had no swelling hematoma or bleeding noted. Pt had no c/o pain or discomfort at the present time. No needs voiced. Call light in reach.
--- NOTE | 2021-04-26 18:56 | PC.NURSE ---
Aggrastate turned off at 1330.
[2021-04-27] VITALS: BP 105/62; PULSE 67; RESP 21; TEMP 36.4; O2SAT 96
--- NOTE | 2021-04-27 01:20 | PC.NURSE ---
Shift Note Frequent safety and comfort rounds continue. Orders and/or nursing care completed as indicated. Patient monitored for response to intervention and treatment(s). Will continue to monitor.
[2021-04-27 03:39] VITALS: PULSE 61
[2021-04-27 04:00] VITALS: BP 117/60; PULSE 67; RESP 16; TEMP 36.8; O2SAT 96
[2021-04-27 04:02] LABS: Basophils % 0.8 %; Eosinophils # 0.1 10^3/uL (0.0-0.8); Eosinophils % 1.6 %; Hematocrit 32.8 % (42.0-52.0); Hemoglobin 10.6 g/dL (11.7-16.6); Lymphocytes # 1.4 10^3/uL (0.8-4.8); Lymphocytes % 29.5 %; Mean Corpuscular HGB Conc 32.3 g/dL (30.0-36.0); Mean Corpuscular Hemoglobin 30.5 pg (28.0-34.0); Mean Corpuscular Volume 94.5 fl (80-94); Mean Platelet Volume 11.1 fL (7.4-10.4); Monocytes % 20.6 %; Neutrophils # 2.25 10^3/uL (1.8-7.7); Neutrophils % 46.5 %; Nucleated Red Blood Cells % 0 %; Platelet Count 100 10^3/cmm (130-400); Red Blood Count 3.47 10^6/uL (4.1-5.3); White Blood Count 4.9 10^3/uL (4.0-10.0)
[2021-04-27 04:38] LABS: Anion Gap 13.8 (5-19); Blood Urea Nitrogen 17 mg/dL (8-23); Carbon Dioxide 25 mmol/L (22-29); Chloride 105 mmol/L (98-107); Glucose 130 mg/dL (65-115); Osmolality Calculated 291 mOsm/kg (285-295); Potassium 4.8 mmol/L (3.5-5.1); Sodium 139 mmol/L (136-145)
--- NOTE | 2021-04-27 06:21 | P.DS_ITS ---
Discharge Providers Date of Admission: 04/26/21 11:50 Date of Discharge: April 27, 2021 Attending Provider at Admission: Joycelyn Villalobos MD Attending Provider at Discharge: Joycelyn Villalobos MD Primary Care Provider: Shila Gaspar MD Reason for Visit Reason for Visit: [id number] ABNORMAL RESULT OF OTHER CARDIO FUNCTION Hospital Course Hospital Course 75-year-old male past medical history significant for diabetes mellitus hypertension hyperlipidemia for worsening of shortness of breath, congestive heart failure LV dysfunction with moderately depressed ejection fraction 30% underwent left heart cath he was noted to have mid LAD stenosis which was 75 to 80% by visualization IFR was performed which turned out to be 0.87 appeared to be significant it was treated with drug-eluting stent post PCI case remains uncomplicated in the morning patient is doing fine from cardiovascular perspective denies any complaint. Patient is being discharged home. Physical Exam Narrative: EXAM NARRATIVE: GENERAL: Patient is alert, awake and oriented x3. NECK: No jugular vein distension. HEENT: No cyanosis. No icterus. No pallor. HEART: Regular S1 and S2. No murmur, rub or gallop. LUNGS: Clear to auscultate bilaterally. ABDOMEN: Soft, nontender and nondistended. Positive bowel sounds. No guarding, rebound or tenderness. CENTRAL NERVOUS SYSTEM: Grossly nonfocal. EXTREMITIES: Lower extremities without edema bilaterally. Discharge Data Data Completed and Pending: Pending at discharge Category Date Time Status CLINICAL EDUCATION SPECIALIST request for service Routin e Exams 04/26/21 09:00 Ordered Labs from last 24 hours 04/27/21 04/27/21 03:46 03:46 WBC 4.9 RBC 3.47 L Hgb 10.6 L Hct 32.8 L MCV 94.5 H MCH 30.5 MCHC 32.3 RDW 14.0 Plt Count 100 L MPV 11.1 H Neut % (Auto) 46.5 Lymph % (Auto) 29.5 Sac % (Auto) 20.6 Eos % (Auto) 1.6 Baso % (Auto) 0.8 Neut # (Auto) 2.25 Lymph # (Auto) 1.4 Sac # (Auto) 1.0 H Eos # (Auto) 0.1 Baso # (Auto) 0.0 Nucleated RBC % (a uto) 0 Nucleated RBCs # 0.0 Sodium 139 Potassium 4.8 Chloride 105 Carbon Dioxide 25 Anion Gap 13.8 BUN 17 Creatinine 1.0 GFR Calculation Not Reportable Glucose 130 H Calculated Osmolal ity 291 Calcium 9.0 Vitals: Last Vital Signs Temp 98.3 F 04/27/21 04:00 Pulse 67 04/27/21 04:00 Resp 16 04/27/21 04:00 BP 117/60 04/27/21 04:00 Pulse Ox 96 04/27/21 04:00 Discharge Plan Discharge Prescriptions: New Brilinta 90 mg Tablet 90 mg PO BID Qty: 60 RF: 6 Continued vitamin Q69-xtlriro B1 Liquid 1,000 ea PO DAILY RF: 0 aspirin [Adult Aspirin Regimen] 81 mg tablet,delayed release (DR/EC) 81 mg PO DAILY RF: 0 multivitamin Tablet 1 tab PO QAM RF: 0 cholecalciferol (vitamin D3) 50 mcg (2,000 unit) capsule 2,000 unit PO DAILY RF: 0 zinc 50 mg tablet 50 mg PO DAILY RF: 0 turmeric 500 mg PO DAILY RF: 0 coenzyme Q10 [Co Q-10] PO DAILY RF: 0 super beets 650 mg PO DAILY RF: 0 lisinopril 10 mg tablet 10 mg PO DAILY 90 Days Qty: 90 RF: 1 glipizide 2.5 mg tablet extended release 24hr 2.5 mg PO BID 90 Days Qty: 180 RF: 1 (DME) Blood Glucose Test Strip See Rx Instructions .ROUTE .MEDSUPPLY Qty: 50 RF: 11 (DME) lancets Misc See Rx Instructions .ROUTE .MEDSUPPLY Qty: 100 RF: 11 alcohol swabs Pads, Medicated 1 pad topical TID PRN (Reason: as needed to check blood sugar) 30 Days Qty: 100 RF: 11 spironolactone 25 mg tablet 25 mg PO DAILY Qty: 90 RF: 4 tamsulosin 0.4 mg capsule 0.8 mg PO DAILY RF: 0 No Action metoprolol succinate 25 mg tablet extended release 24 hr 25 mg PO DAILY Qty: 90 RF: 3 Discharge Orders: Discharge Order (Routine); Ordered 04/27/21 Ordered By: Joycelyn Villalobos Diet: Cardiac and Diabetic Activity: Increase activity as tolerated Patient Instructions: Coronary Angioplasty (DC), Opioid Safety Activity Restrictions/Additional Instructions: Follow-up with In 6 to 8 weeks. Follow-up with Lizzy Mark cardiology nurse practitioner in 7 days. Print Language: Bahraini Discharge Date/Time: 04/27/21 07:00 Discharge Attestations Time Spent in Discharge Care*: less than 30 min Specific Discharge Activities: educating patient Quality Metrics Clinical Quality Measures During this hospital stay, did patient experience: None Coding Level of Care Code Established Pt Acute Chg FW DC note Patient Type Established History Detailed Exam Detailed Medical Decision Making Moderate Complexity
[2021-04-27 06:36] VITALS: BP 117/60; PULSE 67; RESP 16; TEMP 36.8; O2SAT 96
--- NOTE | 2021-04-27 07:04 | PC.NURSE ---
Patient educated on post- cath activity restrictions and care, Brilinta, and follow-up appointments. Patient verbalized understanding and signed discharge paperwork. IV removed with catheter intact. Patient left with son with all of personal belongings. No pain, VSS, patient alert and oriented, right wrist site WNL.
== END 2021-04-27 07:00 ==
LOC: CCL 09:04 → CSU 04-27 06:26
PROVIDERS: PCP Family Medicine; Visit Provider Internal Medicine Cardiovascular Disease
DX: R06.02 Shortness of breath (principal); I11.0 Hypertensive heart disease with heart failure; I50.1 Left ventricular failure, unspecified; R94.39 Abnormal result of other cardiovascular function study; I25.10 Atherosclerotic heart disease of native coronary artery without angina pectoris; Z87.891 Personal history of nicotine dependence
CPT/HCPCS: 36415; 80048; 85025; 85347; 93454; 93571; C1725; C1769; C1874; C1887; C1894; C9600; G0378; J0153; J1644; J2250; J3010; J3246; J3490; J7030; Q0163; Q9967

== ENCOUNTER → 2021-05-05 11:58 | Outpatient (BNVA) | payer MEDICARE, SELFPAY | PROVIDERS: PCP Family Medicine; Visit Provider Nurse Practitioner Family | DX: I25.10 Atherosclerotic heart disease of native coronary artery without angina pectoris (principal) | CPT/HCPCS: 80048 ==

== ENCOUNTER → 2021-09-13 10:12 | Outpatient (BNVA) | payer MEDICARE, SELFPAY | PROVIDERS: PCP Family Medicine; Visit Provider Family Medicine | DX: E11.9 Type 2 diabetes mellitus without complications (principal); I25.10 Atherosclerotic heart disease of native coronary artery without angina pectoris; I10 Essential (primary) hypertension | CPT/HCPCS: 80053; 80061; 83036 ==

== ENCOUNTER → 2022-02-22 14:53 | Outpatient (BNVA) | payer MEDICARE, SELFPAY | PROVIDERS: PCP Family Medicine; Visit Provider Family Medicine | DX: E11.9 Type 2 diabetes mellitus without complications (principal); I10 Essential (primary) hypertension; N40.1 Benign prostatic hyperplasia with lower urinary tract symptoms; R35.0 Frequency of micturition; I25.10 Atherosclerotic heart disease of native coronary artery without angina pectoris; I34.0 Nonrheumatic mitral (valve) insufficiency; I35.0 Nonrheumatic aortic (valve) stenosis | CPT/HCPCS: 80048; 80053; 83036 ==

== ENCOUNTER 2022-03-29 11:25 | Oncology outpatient (recurring) (ONCR) | payer MEDICARE, SELFPAY ==
[2022-03-29 12:47] LABS: Carcinoembryonic Antigen 2.4 ng/mL (0.0-4.7)
[2022-03-29 12:59] LABS: Alanine Aminotransferase 18 U/L (0-41); Albumin Level 4.4 g/dL (3.5-5.2); Alkaline Phosphatase 59 U/L (40-130); Anion Gap 14.5 (5-19); Aspartate Amino Transferase 23 U/L (0-40); Blood Urea Nitrogen 18 mg/dL (8-23); Calcium 9.3 mg/dL (8.5-10.5); Carbon Dioxide 25 mmol/L (22-29); Chloride 103 mmol/L (98-107); Globulin 3.1 g/dL (1.3-4.6); Glucose 113 mg/dL (65-115); Osmolality Calculated 289 mOsm/kg (285-295); Potassium 4.5 mmol/L (3.5-5.1); Sodium 138 mmol/L (136-145); Total Protein 7.5 g/dL (6.6-8.7)
[2022-03-29 13:08] LABS: Basophils % 0.8 %; Eosinophils # 0.1 10^3/uL (0.0-0.8); Eosinophils % 1.3 %; Hematocrit 36.9 % (42.0-52.0); Hemoglobin 12.1 g/dL (11.7-16.6); Lymphocytes # 1.9 10^3/uL (0.8-4.8); Lymphocytes % 35.8 %; Mean Corpuscular HGB Conc 32.8 g/dL (30.0-36.0); Mean Corpuscular Hemoglobin 30.8 pg (28.0-34.0); Mean Corpuscular Volume 93.9 fl (80-94); Mean Platelet Volume 11.6 fL (7.4-10.4); Monocytes # 0.9 10^3/uL (0.2-0.9); Monocytes % 16.3 %; Neutrophils # 2.27 10^3/uL (1.8-7.7); Neutrophils % 43.7 %; Nucleated Red Blood Cells % 0 %; Platelet Count 124 10^3/cmm (130-400); Red Blood Count 3.93 10^6/uL (4.1-5.3); Red Cell Distribution Width 14.1 % (12.1-15.1); White Blood Count 5.2 10^3/uL (4.0-10.0)
== END 2022-04-18 23:59 | disposition home or self-care (01) ==
PROVIDERS: PCP Family Medicine; Visit Provider Internal Medicine Medical Oncology
DX: Z08 Encounter for follow-up examination after completed treatment for malignant neoplasm (principal); Z85.038 Personal history of other malignant neoplasm of large intestine; Z92.21 Personal history of antineoplastic chemotherapy; Z90.49 Acquired absence of other specified parts of digestive tract; R06.09 Other forms of dyspnea
CPT/HCPCS: 36415; 80053; 82378; 85025; 99213

== ENCOUNTER 2022-04-04 15:31 | Outpatient (CLI) | payer MEDICARE, SELFPAY ==
--- NOTE | 2022-04-04 17:00 | CT_ITS ---
WS: [id number] CT CHEST, ABDOMEN AND PELVIS WITH CONTRAST HISTORY: colon cancer TECHNIQUE: Contiguous 5 mm axial imaging performed through the chest, abdomen and pelvis with IV cont rast, oral contrast has been provided. Coronal and sagittal reformats chest. Coronal and sagittal ref ormats through the abdomen and pelvis. All CT scans at [facility] use at least one of these d ose optimization techniques: automated exposure control; mA and/or kV adjustment per patient size (in cludes targeted exams where dose is matched to clinical indication); or iterative reconstruction. CONTRAST: Omnipaque 350; 95 mL IV. DLP: 1916.98 mGy.cm COMPARISON: 02/05/[address]: Lungs are well-aerated. No change in a 5 mm nodule along the superior RIGHT major fissure. There is small calcified granulomata which are unchanged. Bilateral short segment pleural plaques. Pl aques involving upper and lower pleural surfaces. No pneumonia. Heart is normal size. No pericardial or pleural effusions. No mediastinal adenopathy. No enlarging or new lymph nodes. Normal size pulmona ry artery. Mild atherosclerosis aorta. Abdomen CT: Normal liver. No metastatic lesions. There are a few splenic granulomas. Spleen is normal size. Gallbladder normally distended with calcifications. Normal pancreas and adrenal glands. Modera te atherosclerosis aorta. Calcified plaque continues into the mesenteric arteries. Kidneys are normal size with no obstruction. Lower pole LEFT renal cyst stable at 3.0 x 2.2 cm. No adenopathy or ascite s. Stomach is well distended with contrast. No small bowel obstruction. Mild diffuse constipation. Prior appendectomy. Rectosigmoid surgical anastomosis is identified. No adjacent soft tissue mass or adeno aditya. Ventral abdominal wall hernia. [place] hernia containing small bowel with no obstruction. Pelvic CT: No free fluid or adenopathy. Urinary bladder is well distended. No osteoblastic or osteolytic bone disease. CT/CT chest abd pel w con* IMPRESSION: 1. No evidence for metastatic disease or disease progression within the chest, abdomen or pelvis. 2. Stable rectosigmoid anastomotic sutures. No recurrent mass or soft tissue t hickening at the surgical site. 3. Cholelithiasis without acute cholecystitis. 4. Stable bilateral pleural plaques.
[2022-04-04] MEDS: iohexol 350 mg/mL 100 mL Btl PO (17:11)
[2022-04-04] MEDS: iohexol 350 mg/mL 100 mL Btl IV (17:11)
== END 2022-04-04 15:32 | disposition home or self-care (01) ==
PROVIDERS: PCP Family Medicine; Visit Provider Internal Medicine Medical Oncology
DX: C18.7 Malignant neoplasm of sigmoid colon (principal); K80.20 Calculus of gallbladder without cholecystitis without obstruction
CPT/HCPCS: 71260; 74177

== ENCOUNTER 2022-04-15 10:55 | Outpatient (CLI) | payer MEDICARE, SELFPAY ==
--- NOTE | 2022-04-15 11:15 | USCV_ITS ---
Raj Herrera Age: 76 Gender: M : 1945 Exam Date: 04/15/2022 11:12 Ordering Phys: Shila Gaspar MD Technologist: Tessie Yoder Exam Location[place] [facility] [place] Indication: ASHD of [place] coronary artery BP: 129 / 79 HR: 68 Rhythm: Sinus Technical Quality: Fair MEASUREMENTS (Male / Female) Normal Values 2D ECHO LV Diastolic Diameter PLAX 5.2 cm 4.2 - 5.9 / 3.9 - 5.3 cm LV Systolic Diameter PLAX 3.8 cm IVS Diastolic Thickness 1.6 cm 0.6 - 1.0 / 0.6 - 0.9 cm IVS Systolic Thickness 1.4 cm LVPW Diastolic Thickness 1.5 cm 0.6 - 1.0 / 0.6 - 0.9 cm LVPW Systolic Thickness 2.5 cm LVOT Diameter 2.0 cm LV Ejection Fraction 2D Teich 53.1 % LV Ejection Fraction MOD 2C 41.4 % LV Ejection Fraction 2C AL 40.8 % LA Diameter 3.9 cm LA Width 3.8 cm LA Height 6.0 cm RA Width 3.5 cm RA Height 4.6 cm Aorta at Sinotubular Diameter 3.5 cm IVC Diameter 1.1 cm M-MODE MV E Point Septal Separation 1.5 cm DOPPLER AV Peak Velocity 249.5 cm/s LVOT Peak Velocity 83.0 cm/s AV Area Cont Eq vti 1.1 cm squared AV Area Cont Eq pk 1.0 cm squared MV Peak Velocity 132.0 cm/s MV Area PHT 1.3 cm squared Mitral E to A Ratio 0.5 MV E' Velocity 31.5 cm/s Mitral E to MV E' Ratio 11.4 Mitral E to LV E' Lateral Ratio 8.1 Mitral E to LV E' Septal Ratio 19.9 TR Peak Velocity 159.7 cm/s TR Peak Gradient 10.2 mmHg Right Atrial Pressure 3.0 mmHg Pulmonary Artery Systolic Pressu 13.2 mmHg PV Peak Velocity 132.0 cm/s RV Acceleration Time 0.1 s RV Ejection Time 0.3 s RV AcT/ET 0.4 FINDINGS Left Ventricle Moderately increased left ventricular cavity size. Normal left ventricular wall thickness. Moderately decreased left ventricular systolic function. Regional wall motion abnormalities (see diagram). Akinesis of the mid anterior wall and apex. Mild to moderate hypokinesis of the lateral wall. Inferior and posterior wheeler contract normally.abnormal septal motion consistent with conduction abnormality. Left ventricular ejection fraction is estimated at 35-40 %. Right Ventricle Normal right ventricular size and systolic function. Normal right ventricular systolic pressure. Right Atrium The right atrium is normal in size. Left Atrium The left atrium is normal in size. Mitral Valve Structurally normal mitral valve. Moderate mitral valve regurgitation. Aortic Valve Structurally normal trileaflet aortic valve. Mild aortic valve calcification. Mild aortic valve stenosis, mean gradient 14 mmHg, СВЕТЛАНА 1.1 cm squared. Tricuspid Valve Structurally normal tricuspid valve. Trace tricuspid valve regurgitation. Pulmonic Valve Pulmonic valve not well visualized. Pericardium Normal pericardium without effusion. Aorta Normal ascending aorta dimension. IVC The inferior vena cava appears normal. CONCLUSIONS Moderately increased left ventricular cavity size. Normal left ventricular wall thickness. Moderately decreased left ventricular systolic function. Regional wall motion abnormalities (see diagram). Akinesis of the mid anterior wall and apex. Mild to moderate hypokinesis of the lateral wall. Inferior and posterior wheeler contract normally.abnormal septal motion consistent with conduction abnormality. Left ventricular ejection fraction is estimated at 35-40 %. Structurally normal mitral valve. Moderate mitral valve regurgitation. Structurally normal trileaflet aortic valve. Mild aortic valve calcification. Mild aortic valve stenosis, mean gradient 14 mmHg, СВЕТЛАНА 1.1 cm squared. From the previous there now appears to be regional wall motion disturbances suggesting coronary artery disease. This may have been there previously just not recognized. Ejection fraction is about the same. Aortic stenosis unchanged. Dr. Joss Chun MD (Electronically Signed) Final Date: 15 April 2022 12:55 S
== END 2022-04-15 10:56 | disposition home or self-care (01) ==
LOC: RAD 10:58
PROVIDERS: PCP Family Medicine; Visit Provider Family Medicine
DX: I10 Essential (primary) hypertension (principal); I25.10 Atherosclerotic heart disease of native coronary artery without angina pectoris; I34.0 Nonrheumatic mitral (valve) insufficiency; I35.0 Nonrheumatic aortic (valve) stenosis
CPT/HCPCS: 93306

== ENCOUNTER → 2022-07-18 09:38 | Outpatient (BNVA) | payer MEDICARE, SELFPAY | PROVIDERS: PCP Family Medicine; Visit Provider Family Medicine | DX: L03.90 Cellulitis, unspecified (principal); I10 Essential (primary) hypertension; I25.10 Atherosclerotic heart disease of native coronary artery without angina pectoris; I34.0 Nonrheumatic mitral (valve) insufficiency; I35.0 Nonrheumatic aortic (valve) stenosis; I50.22 Chronic systolic (congestive) heart failure; L03.115 Cellulitis of right lower limb; E11.9 Type 2 diabetes mellitus without complications | CPT/HCPCS: 80048; 83735; 83880 ==

== ENCOUNTER → 2022-08-24 10:13 | Outpatient (BNVA) | payer MEDICARE, SELFPAY | PROVIDERS: PCP Family Medicine; Visit Provider Family Medicine | DX: E11.9 Type 2 diabetes mellitus without complications (principal); I25.10 Atherosclerotic heart disease of native coronary artery without angina pectoris; N40.1 Benign prostatic hyperplasia with lower urinary tract symptoms | CPT/HCPCS: 80061; 83036 ==

== ENCOUNTER → 2022-10-27 10:27 | Outpatient (BNVA) | payer MEDICARE, SELFPAY | PROVIDERS: PCP Family Medicine; Visit Provider Nurse Practitioner Family | DX: I11.0 Hypertensive heart disease with heart failure (principal); I50.22 Chronic systolic (congestive) heart failure; I25.10 Atherosclerotic heart disease of native coronary artery without angina pectoris; Z79.82 Long term (current) use of aspirin | CPT/HCPCS: 99214 ==

== ENCOUNTER → 2023-02-22 10:37 | Outpatient (BNVA) | payer MEDICARE, SELFPAY | PROVIDERS: PCP Family Medicine; Visit Provider Family Medicine | DX: E11.9 Type 2 diabetes mellitus without complications (principal); I25.10 Atherosclerotic heart disease of native coronary artery without angina pectoris; N40.1 Benign prostatic hyperplasia with lower urinary tract symptoms; R35.0 Frequency of micturition; I10 Essential (primary) hypertension; Z12.5 Encounter for screening for malignant neoplasm of prostate; I50.22 Chronic systolic (congestive) heart failure | CPT/HCPCS: 80053; 83036; G0103 ==

== ENCOUNTER 2023-04-05 12:10 | Oncology outpatient (recurring) (ONCR) | payer MEDICARE, SELFPAY ==
[2023-04-05 12:46] VITALS: BP 130/68; PULSE 68; RESP 16; TEMP 35.6; O2SAT 98
[2023-04-05 13:15] LABS: Basophils # 0.1 10^3/uL (0.0-0.1); Basophils % 0.8 %; Eosinophils # 0.1 10^3/uL (0.0-0.8); Eosinophils % 0.8 %; Hematocrit 36.4 % (37-53); Lymphocytes # 1.7 10^3/uL (0.8-4.8); Mean Corpuscular HGB Conc 32.4 g/dL (30-55); Mean Corpuscular Hemoglobin 30.3 pg (27-33); Mean Corpuscular Volume 93.6 fl (82-101); Mean Platelet Volume 11.3 fL (7.4-10.4); Monocytes # 0.9 10^3/uL (0.2-0.9); Monocytes % 15.4 %; Neutrophils # 2.91 10^3/uL (1.8-7.7); Neutrophils % 49.6 %; Nucleated Red Blood Cells % 0 %; Platelet Count 121 10^3/cmm (157-399); Red Blood Count 3.89 10^6/uL (3.85-5.65); Red Cell Distribution Width 14.5 % (12.1-15.1); White Blood Count 5.89 10^3/uL (3.29-11.43)
[2023-04-05 13:48] LABS: Carcinoembryonic Antigen 2.1 ng/mL (0.0-4.7)
[2023-04-05 14:02] LABS: Alanine Aminotransferase 14 U/L (0-41); Albumin Level 4.1 g/dL (3.5-5.2); Alkaline Phosphatase 53 U/L (40-130); Aspartate Amino Transferase 18 U/L (0-40); Blood Urea Nitrogen 15 mg/dL (8-23); Calcium 8.7 mg/dL (8.5-10.5); Carbon Dioxide 26 mmol/L (22-29); Chloride 103 mmol/L (98-107); Globulin 2.9 g/dL (1.3-4.6); Glucose 187 mg/dL (65-115); Osmolality Calculated 292 mOsm/kg (285-295); Sodium 138 mmol/L (136-145); Total Bilirubin 0.7 mg/dL (0.15-1.2)
== END 2023-04-18 23:59 | disposition home or self-care (01) ==
PROVIDERS: PCP Family Medicine; Visit Provider Internal Medicine Medical Oncology
DX: Z08 Encounter for follow-up examination after completed treatment for malignant neoplasm (principal); Z85.038 Personal history of other malignant neoplasm of large intestine; Z90.49 Acquired absence of other specified parts of digestive tract; R06.09 Other forms of dyspnea; Z92.21 Personal history of antineoplastic chemotherapy
CPT/HCPCS: 36415; 80053; 82378; 85025; 99214

== ENCOUNTER 2023-04-18 07:16 | Outpatient (CLI) | payer MEDICARE, SELFPAY ==
--- NOTE | 2023-04-18 08:30 | CT_ITS ---
WS: [id number] CT CHEST, ABDOMEN, AND PELVIS TECHNIQUE: Contrast-enhanced CT of the chest, abdomen, and pelvis with coronal and sagittal reformatt ed images. CLINICAL INFORMATION: colon cancer COMPARISON: 04/04/2022 and 02/05/2021 DLP: 1627.[address] scans at [facility] use at least one of these dose optimization techniques: automated e xposure control; mA and/or kV adjustment per patient size (includes targeted exams where dose is matc hed to clinical indication); or iterative reconstruction. CT CHEST: Mild chronic emphysematous changes. Stable 5 mm nodule superior RIGHT major fissure. A few calcified granulomas. Bilateral pleural plaques. New enlarged anterior mediastinal and parabronchial lymph node s largest measuring 1.8 x 1.2 cm. This is new compared to previous. Few tree-in-bud opacities LEFT upper lobe laterally with subpleural nodularity. This is new from prev ious. Slight tree-in-bud nodularity in the LEFT lower lobe with subpleural nodularity. Subsegmental e ctasis in the lung bases. A few tiny nodules in the RIGHT lower lobe. Patchy opacities about the RIGH T hilum. This is new from previous and may be infectious or inflammatory but nonspecific. No axillary lymphadenopathy. Cardiomegaly. RIGHT TSA. Normal caliber thoracic aorta. Aortic calcifica tion. Coronary calcification. Proximal main pulmonary arteries are normal. CT ABDOMEN AND PELVIS: Cholelithiasis. Diffuse fatty infiltration of the liver. Normal spleen. Moderate esophageal hiatal he rnia. Fatty atrophy of the pancreas. Adrenal glands are normal. Splenic artery calcification. Normal caliber abdominal aorta. Aortic calcification. No hydronephrosis in either kidney. No periaortic lymphadenopathy. No pelvic or inguinal lymphadenopa thy. Sigmoid anastomosis. Ventral abdominal wall hernia containing a few loops of nonobstructed bowel . Stable LEFT lower pole renal cyst measuring 3.0 x 2.2 cm IMPRESSION: 1. New tree-in-bud infiltrates with a few tiny scattered nodules and opacities described above. Mor e prominent in the LEFT upper lobe subpleural in location and about the RIGHT hilum. This may be infe ctious or inflammatory but indeterminate and recommend 3-month follow-up. 2. New prominent anterior mediastinal and parabronchial lymph nodes the largest measuring 1.8 x 1.2 cm. Recommend 3-month follow-up. 3. Stable pleural plaques. 4. No adenopathy in the abdomen or pelvis. Prior sigmoid anastomosis. 5. Cholelithiasis. 6. Moderate esophageal hernia.
[2023-04-18] MEDS: iohexol 350 mg/mL 500 mL Btl (per mL) PO (08:35)
[2023-04-18] MEDS: iohexol 350 mg/mL 500 mL Btl (per mL) IV (08:35)
== END 2023-04-18 07:17 | disposition home or self-care (01) ==
LOC: RAD 07:24
PROVIDERS: PCP Family Medicine; Visit Provider Internal Medicine Medical Oncology
DX: C18.7 Malignant neoplasm of sigmoid colon (principal); R91.8 Other nonspecific abnormal finding of lung field
CPT/HCPCS: 71260; 74177; Q9967

== ENCOUNTER → 2023-05-04 13:46 | Outpatient (BNVA) | payer MEDICARE, SELFPAY | PROVIDERS: PCP Family Medicine; Visit Provider Internal Medicine Cardiovascular Disease | DX: I11.0 Hypertensive heart disease with heart failure (principal); I50.22 Chronic systolic (congestive) heart failure; I25.10 Atherosclerotic heart disease of native coronary artery without angina pectoris; I35.0 Nonrheumatic aortic (valve) stenosis; I34.0 Nonrheumatic mitral (valve) insufficiency; E11.9 Type 2 diabetes mellitus without complications; Z79.84 Long term (current) use of oral hypoglycemic drugs | CPT/HCPCS: 99214 ==

== ENCOUNTER 2023-05-29 05:15 | Inpatient (IN) | payer MEDICARE, SELFPAY ==
[2023-05-29] VITALS (132 sets, daily range): BP systolic 99–156; BP diastolic 56–87; PULSE 70–124; RESP 13–30; TEMP 36.2–36.6; O2SAT 91–100; BMI 33.5
--- NOTE | 2023-05-29 05:24 | XRR_ITS ---
PROCEDURE INFORMATION: Exam: XR Chest Exam date and time: 05/29/2023 5:49 AM Age: 77 years old Clinical indication: Prior surgery; Surgery date: 6+ months; Surgery type: Coronary stents; Patient HX: Hematemesis. History of colon cancer. ; Additional info: Syncope, vomiting TECHNIQUE: Imaging protocol: Radiologic exam of the chest. Views: 1 view. COMPARISON: CT chest abdpel w/*[id number] 04/18/2023 8:32 AM FINDINGS: Lungs: Unremarkable. No consolidation. Pleural spaces: Unremarkable. No pleural effusion. No pneumothorax. Heart/Mediastinum: Unremarkable. No cardiomegaly. Bones/joints: Unremarkable. XR/XR chest 1V portable [id number] IMPRESSION: No acute findings.
--- NOTE | 2023-05-29 05:25 | ECG_ITS ---
[facility] Test Date: 2023-05-29 Pat Name: Raj Herrera Department: Room: Gender: Male Principal Examiner: : 1945 Requested By: Ricardo Lees Order Number: [id number] Rupert MD: Joss Chun M.D. Measurements Intervals [place] Rate: 106 P: 25 MA: 265 QRS: 3 QRSD: 158 T: 116 QT: 391 QTc: 521 Interpretive Statements SINUS TACHYCARDIA WITH FIRST DEGREE AV BLOCK LEFT ATRIAL ENLARGEMENT [-0.15mV P-WAVE IN V1/V2] Left bundle branch block Compared to ECG 10/02/2017 14:38:30 First degree AV block now present Atrial abnormality now present Electronically Signed On 05-29-2023 15:55:30 SCRAP PREPARER by Joss Chun M.D. [id number]
--- NOTE | 2023-05-29 05:27 | CTR_ITS ---
PROCEDURE INFORMATION: Exam: CT Abdomen And Pelvis With Contrast Exam date and time: 05/29/2023 6:04 AM Age: 77 years old Clinical indication: Vomiting; Prior surgery; Surgery date: 6+ months; Surgery type: Coronary stent. Partial colectomy. Appy; Patient HX: Hematemesis with tarry stool and diaphoresis. History of colon cancer. ; Additional info: Syncope, vomiting blood TECHNIQUE: Imaging protocol: Computed tomography of the abdomen and pelvis with contrast. Radiation optimization: All CT scans at this facility use at least one of these dose optimization techniques: automated exposure control; mA and/or kV adjustment per patient size (includes targeted exams where dose is matched to clinical indication); or iterative reconstruction. Contrast material: OMNI 350; Contrast volume: 125 ml; Contrast route: INTRAVENOUS (IV); REPORTING DATA: Count of CT and Cardiac NM exams in prior 12 months: This patient has received [address] and 0 known cardiac nuclear medicine studies in the 12 months prior to the current study. COMPARISON: CT chest abdpel w/*[id number] 04/18/2023 8:32 AM RADIATION DOSE METRICS: Total DLP (mGy-cm): 1916.69 FINDINGS: Pleural spaces: Linear calcified bilateral pleural plaques. Liver: Normal. No mass. Gallbladder and bile ducts: Positive for calcified stones. Negative for wall thickening. No ductal dilation. Pancreas: Normal. No ductal dilation. Spleen: Normal. No splenomegaly. Adrenal glands: Normal. No mass. Kidneys and ureters: Simple cyst in the lower left kidney measures 3 cm transverse diameter. No dedicated imaging follow-up recommended. Negative for hydronephrosis. Negative for renal stones. Stomach and bowel: Large duodenal diverticulum is redemonstrated extending medial to the 2nd portion with probable intraluminal contrast extravasation. Negative for bowel obstruction or perforation. Partial left hemicolectomy surgical changes. Negative for pneumatosis intestinalis. No focal bowel mass identified. Appendix: No evidence of appendicitis. Intraperitoneal space: Unremarkable. No free air. No significant fluid collection. Vasculature: Unremarkable. No abdominal aortic aneurysm. Lymph nodes: Unremarkable. No enlarged lymph nodes. Urinary bladder: Unremarkable as visualized. Reproductive: Unremarkable as visualized. Bones/joints: Unremarkable. No acute fracture. Soft tissues: Unremarkable. Other findings: THIS REPORT CONTAINS FINDINGS THAT MAY BE CRITICAL TO PATIENT CARE. The findings were verbally communicated via telephone conference with Dr. Garcia at 7:00 AM RAILROAD DINING CAR STEWARD/STEWARDESS on 05/29/2023. The findings were acknowledged and understood. CT/CT abdomen pelvis w con* [id number] IMPRESSION: Positive for active upper gastrointestinal bleeding within a large duodenal diverticulum. COMMENTS: Consistent with the [employer]'s Incidental Findings Committee white paper (J Am Estephanie Radiol 2018): Any incidental renal lesion less than 1 cm or classified as too small to characterize, or any incidental cystic renal lesion characterized as simple-appearing, is likely benign. No follow-up imaging is recommended for these lesions per consensus recommendations based on imaging criteria.
--- NOTE | 2023-05-29 05:34 | ED_ITS ---
Documented by User: Ricardo Del Castillo DO 05/30/23 19:16 HPI - Syncope 2 General: Chief Complaint: Syncope Stated Complaint: syncope Time Seen by Provider: 05/29/23 05:24 History of Present Illness: 77-year-old male. He presents after syn copal episode at home. EMS found him in the floor. He was generally quite weak. He was nauseated and pale as well. He was tachycardic. He remains as such. He had 1 bloody episode of emesis here. Not a large amount. He does not complain of significant pain, either chest or abdominal. Syncopal episode was short-lived at home. He does have a history of coronary disease. He does have a history of colon cancer in the past. He is not on any anticoagulants. Associated symptoms: Reports nausea; Deny abdominal pain, chest pain or fever(s) Review of Systems 2 Const: Reports: chills; Denies: fever(s) ENMT: Reports: throat pain Card: Denies: chest pain or palpitations Resp: Denies: dyspnea, productive cough or non-productive cough GI: Reports: nausea, vomiting, hematemesis and melena; Denies: abdominal pain or diarrhea PFSH ED 2 PFSH: Medical History Colon cancer Atherosclerosis of coronary artery LBBB (left bundle branch block) Mitral valve regurgitation Aortic stenosis CHF (congestive heart failure) Essential (primary) hypertension Type 2 diabetes mellitus Metformin intolerance (GI) Benign prostatic hyperplasia with urinary frequency Hiatal hernia Surgical History History of partial colectomy (10/04/17) Hand-assisted laparoscopic sigmoid colectomy History of coronary artery stent placement 2021 History of appendectomy History of shoulder surgery Family History Other Cancer Dementia Social History Smoking and tobacco/nicotine status: never used tobacco/nicotine Alcohol intake: never Substance/Drug Use: never Household members: spouse Housing: House Marital status: Current occupational status: employed Current gender identity: Male Physical Exam 2 Const: GENERAL APPEARANCE: cooperative and ill appearing NUTRITIONAL APPEARANCE: obese HENMT: COMMON NORMALS: normocephalic, atraumatic and Normal external nose present HEAD & SCALP: normocephalic and atraumatic FACE & SINUS: normal facial exam and face symmetric NOSE: Normal external nose present Eye: COMMON NORMALS: Equal, round and reactive pupils present and EOMs intact bilaterally PUPIL: Yes Equal, round and reactive pupils present Neck/C-Spine: GENERAL: Yes trachea midline Chest: CHEST: Yes Symmetrical chest wall rise Resp: COMMON NORMALS: No retractions, No use of accessory muscles and clear to auscultation bilaterally EFFORT & INSPECTION: Yes tachypneic AUSCULTATION: clear to auscultation bilaterally Cardio: COMMON NORMALS: regular rhythm RATE: tachycardic RHYTHM: regular rhythm GI: COMMON NORMALS: Soft to palpation INSPECTION: Yes abdominal distension PALPATION: Yes Soft to palpation Extremity: COMMON NORMALS: no pedal edema Neuro: JAKOB COMA SCALE: document GCS findings [place] coma scale eye opening: Spontaneous [place] coma scale verbal response: Orientated [place] coma scale motor response: Obey commands [place] coma scale total score: 15 S ENSORY EXAM: Yes extremities (intact) Psych: COMMON NORMALS: speech normal SPEECH: Yes normal speech Skin: COMMON NORMALS: no rashes or lesions noted GENERAL SKIN EXAM: no rashes or lesions noted Course 2 Vital Signs: Vital signs: Vital Signs Temperature 98.6 F 05/30/23 01:05 Pulse Rate 84 05/30/23 07:30 Respiratory Rate 19 H 05/30/23 07:30 Blood Pressure 162/66 05/30/23 07:30 Pulse Oximetry 98 05/30/23 07:30 Oxygen Delivery Me thod Room Air 05/30/23 07:30 Oxygen Flow Rate 2 05/29/23 08:30 MDM - Syncope Medical Decision Making Patient is tachycardic. He is pale, and diaphoretic. He had bloody emesis in the room. His hemoglobin is 8.8. White blood cell count is 8.3. Platelet count is 102. Other laboratories pending. CT is pending. He is given 1 fluid bolus. He is crossmatched for a unit in the meantime. He is also given octreotide, pantoprazole, and TXA. Lab Data 05/30/23 04:00 05/30/23 04:00 Radiology Impressions Abdomen/Pelvis CT 05/29/23 05:27 IMPRESSION: Positive for active upper gastrointestinal bleeding within a large duodenal diverticulum. COMMENTS: Consistent with the [place] [employer]'s Incidental Findings Committee white paper (J Am Estephanie Radiol 2018): Any incidental renal lesion less than 1 cm or classified as too small to characterize, or any incidental cystic renal lesion characterized as simple-appearing, is likely benign. No follow-up imaging is recommended for these lesions per consensus recommendations based on imaging criteria. Laboratory Results WBC 8.27 10^3/uL (3.29-11.43) 05/29/23 05:34 RBC 2.93 10^6/uL (3.85-5.65) L 05/29/23 05:34 Hgb 8.80 g/dL (11.27-16.99) L 05/29/23 05:34 Hct 27.9 % (37-53) L 05/29/23 05:34 MCV 95.2 fl (82-101) 05/29/23 05:34 MCH 30.0 pg (27-33) 05/29/23 05:34 MCHC 31.5 g/dL (30-55) 05/29/23 05:34 RDW 15.4 % (12.1-15.1) H 05/29/23 05:34 Plt Count 102 10^3/cmm (157-399) L 05/29/23 05:34 MPV 12.4 fL (7.4-10.4) H 05/29/23 05:34 Neut % (Auto) 46.1 % 05/29/23 05:34 Lymph % (Auto) 20.9 % 05/29/23 05:34 Davis % (Auto) 30.5 % 05/29/23 05:34 Eos % (Auto) 0.4 % 05/29/23 05:34 Baso % (Auto) 0.4 % 05/29/23 05:34 Neut # (Auto) 3.82 10^3/uL (1.8-7.7) 05/29/23 05:34 Lymph # (Auto) 1.7 10^3/uL (0.8-4.8) 05/29/23 05:34 Davis # (Auto) 2.5 10^3/uL (0.2-0.9) H 05/29/23 05:34 Eos # (Auto) 0.0 10^3/uL (0.0-0.8) 05/29/23 05:34 Baso # (Auto) 0.0 10^3/uL (0.0-0.1) 05/29/23 05:34 Nucleated RBC % (auto) 0 % 05/29/23 05:34 Nucleated RBCs # 0.0 /100WBC 05/29/23 05:34 PT 17.10 SECONDS (12.1-14.9) H 05/29/23 07:19 INR 1.35 (0.8-1.2) H 05/29/23 07:19 APTT 24.3 SECONDS (23.9-36.7) 05/29/23 07:19 Sodium 134 mmol/L (136-145) L 05/29/23 08:25 Potassium 5.4 mmol/L (3.5-5.1) H 05/29/23 08:25 Chloride 102 mmol/L (98-107) 05/29/23 08:25 Carbon Dioxide 23 mmol/L (22-29) 05/29/23 08:25 Anion Gap 14.4 (5-19) 05/29/23 08:25 BUN 34 mg/dL (8-23) H 05/29/23 08:25 Creatinine 0.9 mg/dL (0.7-1.2) 05/29/23 08:25 GFR Calculation Not Reportable 05/29/23 08:25 Glucose 367 mg/dL (65-115) H 05/29/23 08:25 Calculated Osmolality 301 mOsm/kg (285-295) H 05/29/23 08:25 Calcium 7.8 mg/dL (8.5-10.5) L 05/29/23 08:25 Total Bilirubin 0.9 mg/dL (0.15-1.2) 05/29/23 07:19 AST 15 U/L (0-40) 05/29/23 07:19 ALT 11 U/L (0-41) 05/29/23 07:19 Alkaline Phosphatase 38 U/L (40-130) L 05/29/23 07:19 Troponin T Baseline 9 ng/L (0-15) 05/29/23 05:34 Troponin T 120 Minute 16.34 ng/L (0-15) H 05/29/23 07:19 Delta Troponin T 7.34 ABS# (0-10) 05/29/23 07:19 NT-Pro-B Natriuret Pep 206 pg/mL (0-450) 05/29/23 07:19 Total Protein 5.5 g/dL (6.6-8.7) L 05/29/23 07:19 Albumin 3.1 g/dL (3.5-5.2) L 05/29/23 07:19 Globulin 2.4 g/dL (1.3-4.6) 05/29/23 07:19 Lipase 13 U/L (13-60) 05/29/23 07:19 Urine Color Yellow (Yellow) 05/29/23 08:46 Urine Appearance Clear (CLEAR) 05/29/23 08:46 Urine pH 5 (5-7) 05/29/23 08:46 Ur Specific Carney 1.010 (1.005-1.030) 05/29/23 08:46 Urine Protein Neg (Negative) 05/29/23 08:46 Urine Glucose (UA) 2+ (Normal) H 05/29/23 08:46 Urine Ketones 1+ (Negative) H 05/29/23 08:46 Urine Blood 2+ (Negative) H 05/29/23 08:46 Urine Nitrate Negative (Negative) 05/29/23 08:46 Urine Bilirubin Neg (Negative) 05/29/23 08:46 Urine Urobilinogen Norm mg/dL (Negative) 05/29/23 08:46 Ur Leukocyte Esterase Negative (Negative) 05/29/23 08:46 Urine RBC 15-25 /hpf (0-2) H 05/29/23 08:46 Urine WBC 0-4 /hpf (0-5) H 05/29/23 08:46 Ur Squamous Epith Cells None /hpf (0-5) 05/29/23 08:46 Amorphous Sediment Not Reportable 05/29/23 08:46 Urine Bacteria Trace /hpf (NONE) 05/29/23 08:46 Urine Mucus Trace /hpf 05/29/23 08:46 Blood Type A Negative 05/29/23 07:19 Rho(D) Type Negative 05/29/23 07:19 Antibody Screen Negative 05/29/23 07:19 Crossmatch See Detail 05/29/23 07:19 Discharge Plan Discharge Patient Disposition: Admitted As Inpatient Admit Provider: Matt Tobias Clinical Impression: Hemorrhage of duodenum due to diverticulosis, Malignant neoplasm of sigmoid colon, Hyperkalemia, Thrombocytopenia, Acute blood loss anemia Condition: Stable Sign Out Sign Out Data: Patient Sign Out occurred on 05/29/23 at 06:31. Patient's care was discussed, and care was transferred from Ricardo Del Castillo DO to Uzair Bolden DO. Coding Level of Care Code ED Corduroy Cutting Supervisor for Chg Fwd Documented by User: Uzair Bolden DO 05/29/23 10:01 HPI - Syncope 2 General: Chief Complaint: Syncope Stated Complaint: syncope Time Seen by Provider: 05/29/23 05:24 PFSH ED 2 PFSH: Medical History Colon cancer Atherosclerosis of coronary artery LBBB (left bundle branch block) Mitral valve regurgitation Aortic stenosis CHF (congestive heart failure) Essential (primary) hypertension Type 2 diabetes mellitus Metformin intolerance (GI) Benign prostatic hyperplasia with urinary frequency Hiatal hernia Surgical History History of partial colectomy (10/04/17) Hand-assisted laparoscopic sigmoid colectomy History of coronary artery stent placement 2021 History of appendectomy History of shoulder surgery Family History Other Cancer Dementia Social History Smoking and tobacco/nicotine status: never used tobacco/nicotine Alcohol intake: never Substance/Drug Use: never Household members: spouse Housing: House Marital status: Current occupational status: employed Current gender identity: Male Physical Exam 2 Neuro: JAKOB COMA SCALE: document GCS findings [place] coma scale total score: 15 Procedures Central Line Placement Right IJ: Time Out Performed: Yes Patient Placed on Monitor/Pulse Ox: Yes Prep: mask, gown and gloves Central Line Prep: Chlorhexidine scrub Local Anesthetic: lidocaine 1% Amount of anesthesia used (mL): 4 Ultrasound Used for Placement: Yes Central Line Lumen Inserted: triple Post Procedure: sutured in place, good blood return, all ports aspirated, flushed, capped and sterile dressing applied Post Procedure X-Ray: tip of catheter in good position Patient Tolerated Procedure: well Complications: none Course 2 Vital Signs: Vital signs: Vital Signs Temperature 98.6 F 05/30/23 01:05 Pulse Rate 84 05/30/23 07:30 Respiratory Rate 19 H 05/30/23 07:30 Blood Pressure 162/66 05/30/23 07:30 Pulse Oximetry 98 05/30/23 07:30 Oxygen Delivery Me thod Room Air 05/30/23 07:30 Oxygen Flow Rate 2 05/29/23 08:30 MDM - Syncope Medical Decision Making Patient is tachycardic. He is pale, and diaphoretic. He had bloody emesis in the room. His hemoglobin is 8.8. White blood cell count is 8.3. Platelet count is 102. Other laboratories pending. CT is pending. He is given 1 fluid bolus. He is crossmatched for a unit in the meantime. He is also given octreotide, pantoprazole, and TXA. Care assumed from Dr. Del Castillo. Blood pressure has decreased some clinically patient appears she is worsening. He has adequate IV access at this point. Unit of uncrossed match blood and unit of fresh frozen plasma been ordered he is already received Protonix pantoprazole and TXA. Discussed with Dr. Tobias will admit to ICU consult hospitalist for medical management. 7:56 AM blood pressure decreased to 80 systolic. Levophed ordered second unit of blood ordered. Will place Bhatt for management of I's and O's also 500 mL normal saline ordered. Contacted Dr. Tobias to update his condition. They are anticipating taking patient to the GI lab in approximately an hour to an hour and a half for EGD. Continue to resuscitate. Central line placed patient's blood pressure improved and he was placed in a supine position. He has received the first unit of uncrossed match blood and a second unit is about to be transfused. He has received FFP as well. Discussed with family will admit to the ICU orders written. Medical Records I reviewed the patient's medical records. Lab Data I reviewed the patient's lab results. 05/30/23 04:00 05/30/23 04:00 Radiology Impressions Abdomen/Pelvis CT 05/29/23 05:27 IMPRESSION: Positive for active upper gastrointestinal bleeding within a large duodenal diverticulum. COMMENTS: Consistent with the [place] [employer]'s Incidental Findings Committee white paper (J Am Estephanie Radiol 2018): Any incidental renal lesion less than 1 cm or classified as too small to characterize, or any incidental cystic renal lesion characterized as simple-appearing, is likely benign. No follow-up imaging is recommended for these lesions per consensus recommendations based on imaging criteria. Laboratory Results WBC 8.27 10^3/uL (3.29-11.43) 05/29/23 05:34 RBC 2.93 10^6/uL (3.85-5.65) L 05/29/23 05:34 Hgb 8.80 g/dL (11.27-16.99) L 05/29/23 05:34 Hct 27.9 % (37-53) L 05/29/23 05:34 MCV 95.2 fl (82-101) 05/29/23 05:34 MCH 30.0 pg (27-33) 05/29/23 05:34 MCHC 31.5 g/dL (30-55) 05/29/23 05:34 RDW 15.4 % (12.1-15.1) H 05/29/23 05:34 Plt Count 102 10^3/cmm (157-399) L 05/29/23 05:34 MPV 12.4 fL (7.4-10.4) H 05/29/23 05:34 Neut % (Auto) 46.1 % 05/29/23 05:34 Lymph % (Auto) 20.9 % 05/29/23 05:34 Davis % (Auto) 30.5 % 05/29/23 05:34 Eos % (Auto) 0.4 % 05/29/23 05:34 Baso % (Auto) 0.4 % 05/29/23 05:34 Neut # (Auto) 3.82 10^3/uL (1.8-7.7) 05/29/23 05:34 Lymph # (Auto) 1.7 10^3/uL (0.8-4.8) 05/29/23 05:34 Davis # (Auto) 2.5 10^3/uL (0.2-0.9) H 05/29/23 05:34 Eos # (Auto) 0.0 10^3/uL (0.0-0.8) 05/29/23 05:34 Baso # (Auto) 0.0 10^3/uL (0.0-0.1) 05/29/23 05:34 Nucleated RBC % (auto) 0 % 05/29/23 05:34 Nucleated RBCs # 0.0 /100WBC 05/29/23 05:34 PT 17.10 SECONDS (12.1-14.9) H 05/29/23 07:19 INR 1.35 (0.8-1.2) H 05/29/23 07:19 APTT 24.3 SECONDS (23.9-36.7) 05/29/23 07:19 Sodium 134 mmol/L (136-145) L 05/29/23 08:25 Potassium 5.4 mmol/L (3.5-5.1) H 05/29/23 08:25 Chloride 102 mmol/L (98-107) 05/29/23 08:25 Carbon Dioxide 23 mmol/L (22-29) 05/29/23 08:25 Anion Gap 14.4 (5-19) 05/29/23 08:25 BUN 34 mg/dL (8-23) H 05/29/23 08:25 Creatinine 0.9 mg/dL (0.7-1.2) 05/29/23 08:25 GFR Calculation Not Reportable 05/29/23 08:25 Glucose 367 mg/dL (65-115) H 05/29/23 08:25 Calculated Osmolality 301 mOsm/kg (285-295) H 05/29/23 08:25 Calcium 7.8 mg/dL (8.5-10.5) L 05/29/23 08:25 Total Bilirubin 0.9 mg/dL (0.15-1.2) 05/29/23 07:19 AST 15 U/L (0-40) 05/29/23 07:19 ALT 11 U/L (0-41) 05/29/23 07:19 Alkaline Phosphatase 38 U/L (40-130) L 05/29/23 07:19 Troponin T Baseline 9 ng/L (0-15) 05/29/23 05:34 Troponin T 120 Minute 16.34 ng/L (0-15) H 05/29/23 07:19 Delta Troponin T 7.34 ABS# (0-10) 05/29/23 07:19 NT-Pro-B Natriuret Pep 206 pg/mL (0-450) 05/29/23 07:19 Total Protein 5.5 g/dL (6.6-8.7) L 05/29/23 07:19 Albumin 3.1 g/dL (3.5-5.2) L 05/29/23 07:19 Globulin 2.4 g/dL (1.3-4.6) 05/29/23 07:19 Lipase 13 U/L (13-60) 05/29/23 07:19 Urine Color Yellow (Yellow) 05/29/23 08:46 Urine Appearance Clear (CLEAR) 05/29/23 08:46 Urine pH 5 (5-7) 05/29/23 08:46 Ur Specific Carney 1.010 (1.005-1.030) 05/29/23 08:46 Urine Protein Neg (Negative) 05/29/23 08:46 Urine Glucose (UA) 2+ (Normal) H 05/29/23 08:46 Urine Ketones 1+ (Negative) H 05/29/23 08:46 Urine Blood 2+ (Negative) H 05/29/23 08:46 Urine Nitrate Negative (Negative) 05/29/23 08:46 Urine Bilirubin Neg (Negative) 05/29/23 08:46 Urine Urobilinogen Norm mg/dL (Negative) 05/29/23 08:46 Ur Leukocyte Esterase Negative (Negative) 05/29/23 08:46 Urine RBC 15-25 /hpf (0-2) H 05/29/23 08:46 Urine WBC 0-4 /hpf (0-5) H 05/29/23 08:46 Ur Squamous Epith Cells None /hpf (0-5) 05/29/23 08:46 Amorphous Sediment Not Reportable 05/29/23 08:46 Urine Bacteria Trace /hpf (NONE) 05/29/23 08:46 Urine Mucus Trace /hpf 05/29/23 08:46 Blood Type A Negative 05/29/23 07:19 Rho(D) Type Negative 05/29/23 07:19 Antibody Screen Negative 05/29/23 07:19 Crossmatch See Detail 05/29/23 07:19 All radiology interpretation(s) finalized by discharge Critical Care Time 2 Critical Care Time: Critical Care Time: Yes Total Critical Care Time: 45 Attestation: The high probability of a clinically significant, sudden or life threatening deterioration of the patient's hematologic Cardiology system(s) required my full and direct attention, intervention and personal management. The critical care time is as shown. This time is in addition to time spent performing any reported procedures but includes the following: [x] Data and vital sign review and interpretation [x] Patient assessment, examination and intervention [x] Documentation [x] Medication orders and management Discharge Plan Discharge Patient Disposition: Admitted As Inpatient Admit Provider: Matt Tobias Clinical Impression: Hemorrhage of duodenum due to diverticulosis, Malignant neoplasm of sigmoid colon, Hyperkalemia, Thrombocytopenia, Acute blood loss anemia Condition: Stable Sign Out Sign Out Data: Patient Sign Out occurred on 05/29/23 at 06:31. Patient's care was discussed, and care was transferred from Ricardo Del Castillo DO to Uzair Bolden DO. Coding Level of Care Code ED Corduroy Cutting Supervisor for Morelia Ochoa
[2023-05-29] MEDS: pantoprazole 40 mg SDV 80 MG IVP (05:37)
[2023-05-29] MEDS: tranexamic acid 1,000 MG/100 ML PREMIX 600 MG IV (05:37)
[2023-05-29 05:43] LABS: Basophils % 0.4 %; Eosinophils % 0.4 %; Hematocrit 27.9 % (37-53); Lymphocytes # 1.7 10^3/uL (0.8-4.8); Lymphocytes % 20.9 %; Mean Corpuscular HGB Conc 31.5 g/dL (30-55); Mean Corpuscular Volume 95.2 fl (82-101); Mean Platelet Volume 12.4 fL (7.4-10.4); Monocytes # 2.5 10^3/uL (0.2-0.9); Monocytes % 30.5 %; Neutrophils # 3.82 10^3/uL (1.8-7.7); Neutrophils % 46.1 %; Nucleated Red Blood Cells % 0 %; Platelet Count 102 10^3/cmm (157-399); Red Blood Count 2.93 10^6/uL (3.85-5.65); Red Cell Distribution Width 15.4 % (12.1-15.1); White Blood Count 8.27 10^3/uL (3.29-11.43)
[2023-05-29 06:05] LABS: Troponin(5th) Baseline 9 ng/L (0-15)
[2023-05-29] MEDS: iohexol 350 mg/mL 500 mL Btl (per mL) IV (06:11)
[2023-05-29] MEDS: octreotide 100 mcg/mL SDV 50 MCG IVP (06:15)
[2023-05-29] MEDS: ondansetron 2 mg/ML SDV 2 mL 4 MG IVP (06:16)
--- NOTE | 2023-05-29 07:25 | ECG_ITS ---
[facility] Test Date: 2023-05-29 Pat Name: Raj Herrera Department: Room: ICU04 Gender: Male Information Scientist: : 1945 Requested By: Ricardo Lees Order Number: [id number] Rupert MD: Joss Chun M.D. Measurements Intervals Hi Hat Rate: 88 P: 30 WA: 156 QRS: -11 QRSD: 159 T: 71 QT: 439 QTc: 533 Interpretive Statements SINUS RHYTHM LEFT BUNDLE BRANCH BLOCK [120+ ms QRS DURATION, 80+ ms Q/S IN V1/V2, 85+ ms R IN I/aVL/V5/V6] Compared to ECG 05/29/2023 05:30:51 Left bundle-branch block now present Sinus tachycardia no longer present First degree AV block no longer present Atrial abnormality no longer present Intraventricular conduction delay no longer present Electronically Signed On 05-29-2023 15:59:09 VASCULAR SONOGRAPHER by Joss Chun M.D. [id number]
[2023-05-29 07:55] LABS: Troponin 5 2HR 16.34 ng/L (0-15); Troponin 5 2HR Delta 7.34 ABS# (0-10)
--- NOTE | 2023-05-29 07:55 | P.ANESASSM_ITS ---
Pre-Anesthetic Assessment Height/Weight: Height 1.93 m Weight 127.006 kg Temp Pulse Resp BP Pulse Ox O2 Del Method O2 Flow Rate 98 F 89 18 99/56 99 Nasal Cannula 2 05/29/23 05:19 05/29/23 07:36 05/29/23 07:36 05/29/23 07:36 05/29/23 07:36 05/29/23 07:36 05/29/23 07:36 Preop Diagnosis: GI bleed Operation Date: 05/29/23 09:30 Proposed Procedures p EGD(Not Applicable) - Matt Tobias, DO Was Beta Marilou taken within 24 hours: Yes Last intake: yesterday. actively vommiting bloody emesis Social No alcohol and No tobacco Exam alert, oriented x 3, clear to auscultation bilaterally and regular rate & rhythm oriented, conversing appropriately Airway Submandibular: within normal limits Cervical ROM: within normal limits Mallampati: Class II History/ROS No significant history except as noted Pulmonary None reported CV/HEM Anemia, Coronary Artery Disease and Congestive Heart Failure echo 03/2022 - EF 35%, mod MR, mild . patient reports stent at that time. continued followup with Dr García since with no symptom changes None reported Hepatic None reported however, patient appears jaundiced upon assessment. labs pending GI None reported Metabolic Diabetes Mellitus and Morbid Obesity [facility] None reported Neuropsych None reported Anesthetic Plan ASA status: 3E Anesthesia: Anesthesia Evaluation, General and MAC Risk of > 500 ml blood loss (7ml/kg in children): Yes, adequate IV access and fluids planned Medications/Allergies Home Medications Medication Instructions Recorded Confirmed Last Taken Type aspirin 81 mg tablet,delayed 81 mg PO QAM 07/30/19 05/29/23 05/27/23 History release (Adult Aspirin Regimen) ascorbic acid (vitamin C) 500 mg 500 mg PO QAM 06/30/22 05/29/23 05/27/23 History tablet metoprolol succinate 25 mg 25 mg PO DAILY 90 days #90 tabs 02/22/23 05/29/23 05/27/23 Rx tablet,extended release 24 hr blood sugar diagnostic (Accu-Chek #100 strips 03/20/23 05/29/23 Unknown Rx Danii Plus test strips) lancets (Accu-Chek Softclix #100 ea 03/20/23 05/29/23 Unknown Rx Lancets) potassium gluconate 595 mg (99 mg) 595 mg PO QAM 05/04/23 05/29/23 05/27/23 History tablet cholecalciferol (vitamin D3) 50 50 mcg PO QAM 05/29/23 05/29/23 05/27/23 History mcg (2,000 unit) capsule (Vitamin D3) glipizide 10 mg tablet, extended 10 mg PO QAM 05/29/23 05/29/23 05/27/23 History release 24 hr lisinopril 5 mg tablet 5 mg PO QAM 05/29/23 05/29/23 05/27/23 History rosuvastatin 20 mg tablet (Crestor) 20 mg PO QAM 05/29/23 05/29/23 05/27/23 History spironolactone 25 mg tablet 25 mg PO QAM 05/29/23 05/29/23 05/27/23 History tamsulosin 0.4 mg capsule 0.8 mg PO QAM 05/29/23 05/29/23 05/27/23 History vit [id number] no.15 500 1 cap PO QAM 05/29/23 05/29/23 05/27/23 History mcg-400 mcg-10 mg-400 mg capsule Allergies Allergy/AdvReac Type Severity Reaction Status Date / Time No Known Allergies Allergy Verified 05/24/23 14:13 [facility] Anesthesia Medical History Colon cancer Atherosclerosis of coronary artery LBBB (left bundle branch block) Mitral valve regurgitation Aortic stenosis CHF (congestive heart failure) Essential (primary) hypertension Type 2 diabetes mellitus Metformin intolerance (GI) Benign prostatic hyperplasia with urinary frequency Hiatal hernia Surgical History History of partial colectomy (10/04/17) Hand-assisted laparoscopic sigmoid colectomy History of coronary artery stent placement 2021 History of appendectomy History of shoulder surgery Family History Other Cancer Dementia Social History Smoking and tobacco/nicotine status: never used tobacco/nicotine Alcohol intake: never Substance/Drug Use: never Household members: spouse Housing: House Marital status: Current occupational status: employed Current gender identity: Male Data Anesthesia 05/29/23 05:34 05/29/23 07:19 Short CBC 05/29/23 Range/Units 05:34 WBC 8.27 (3.29-11.43) 10^3/uL Hgb 8.80 L (11.27-16.99) g/dL Hct 27.9 L (37-53) % MCV 95.2 (82-101) fl Plt Count 102 L (157-399) 10^3/cmm Neut % (Auto) 46.1 % Neut # (Auto) 3.82 (1.8-7.7) 10^3/uL BMP 05/29/23 05:34 Sodium Cancelled Potassium Cancelled Chloride Cancelled Carbon Dioxide Cancelled BUN Cancelled Creatinine Cancelled Glucose Cancelled Calcium Cancelled Cardiac Enzymes 05/29/23 05/29/23 Range/Units 05:34 07:19 Troponin T Baseline 9 (0-15) ng/L Delta Troponin T 7.34 (0-10) ABS# NT-Pro-B Natriuret Pep Cancelled Liver Function 05/29/23 Range/Units 05:34 Total Bilirubin Cancelled AST Cancelled ALT Cancelled Alkaline Phosphatase Cancelled Albumin Cancelled Blood Bank 05/29/23 05:34 Blood Type Cancelled Rho(D) Type Cancelled Antibody Screen Cancelled Coags 05/29/23 05:34 PT Cancelled INR Cancelled APTT Cancelled Cardiac Studies: 2 Echocardiogram 04/15/22 Echocardiogram Ultrasound 11/19/20 Sestamibi Stress Test (Cardiology) 03/03
[2023-05-29 08:02] LABS: Alanine Aminotransferase 11 U/L (0-41); Albumin Level 3.1 g/dL (3.5-5.2); Alkaline Phosphatase 38 U/L (40-130); Aspartate Amino Transferase 15 U/L (0-40); Blood Urea Nitrogen 32 mg/dL (8-23); Calcium 7.7 mg/dL (8.5-10.5); Carbon Dioxide 24 mmol/L (22-29); Chloride 102 mmol/L (98-107); Globulin 2.4 g/dL (1.3-4.6); Glucose 311 mg/dL (65-115); Lipase 13 U/L (13-60); NT Pro B Type Natriuretic Pept 206 pg/mL (0-450); Osmolality Calculated 295 mOsm/kg (285-295); Sodium 133 mmol/L (136-145); Total Bilirubin 0.9 mg/dL (0.15-1.2); Total Protein 5.5 g/dL (6.6-8.7)
[2023-05-29 08:13] LABS: Anion Gap 13.1 (5-19); Potassium 6.1 mmol/L (3.5-5.1)
[2023-05-29 08:27] LABS: INR 1.35 (0.8-1.2)
[2023-05-29 08:28] LABS: Partial Thromboplastin Time 24.3 SECONDS (23.9-36.7)
--- NOTE | 2023-05-29 08:29 | XR_ITS ---
WS: [id number] Exam: XR chest 1V portable [id number] Date/Time of Exam: 05/29/2023 8:34 AM Reason For Exam: dyspnea/cough Comparison 05/29/2023. At 5:53 a.m. lungs are clear and fully inflated. Cardiomediastinal silhouette unremarkable for technique. No pleural effusions. A right-sided IJ catheter has been placed and appea rs to end in the right atrium. No pneumothorax. Partially visualized reverse RIGHT shoulder prosthesi s noted. Bony structures are intact. IMPRESSION: 1. No acute cardiopulmonary finding. 2. Right-sided IJ central line appearing to end in the RIGHT atrium.
--- NOTE | 2023-05-29 08:59 | P.CONIM_ITS ---
Documented by User: Maicol Alcaraz Hayesalok 05/29/23 09:29 Providers/Reason For Consult 2 Consulting Physician/Specialty*: Mariano Gonzalez MD Reason for Consult*: Medical management Requesting Physician: Matt Tobias DO Attending Physician: Matt Tobias DO Primary Care Provider: Shila Gaspar MD History of Present Illness History of Present Illness Patient is a 77-year-old male medical history of colon cancer, CHF, mitral valve regurgitation, aortic stenosis, hypertension, type 2 diabetes, BPH who presents to the emergency room with a syncopal episode. Patient will be admitted to the hospital for further medical management of GI bleed, syncopal episode, hyperkalemia, and thrombocytopenia. Patient reports that on 05/27/2023, he noticed that he started having black/bloody stools. Reported 2-3 diarrheal stools that day which continued into Monday morning. pediatric clinical dietician 05/29/2023, patient stated that he got up to go to the bathroom and his heard him fall and was laying in the floor. Patients called EMS at this time. EMS reports that they found him on the floor. Transported to [facility]. Patient does report some overall weakness, nausea. He denies any chest pain, vomiting, fever, chills. Does report some abdominal pain throughout. Denies any generalized pain or anticoagulation usage. While in the emergency room, patient has received octreotide 50 mcg, TXA, Protonix 80 mg, 4 mg Zofran 2 units PRBCs and 1 unit platelets. Right IJ TLC placed. Review of Systems 2 Narrative: Comprehensive 10 point ROS is negative except as stated in the HPI above. Skin/Breast: Reports: dry skin and other (Pale) Medications/Allergies Home Medications Medication Instructions Recorded Confirmed Last Taken Type aspirin 81 mg tablet,delayed 81 mg PO QAM 07/30/19 05/29/23 05/27/23 History release (Adult Aspirin Regimen) ascorbic acid (vitamin C) 500 mg 500 mg PO QAM 06/30/22 05/29/23 05/27/23 History tablet metoprolol succinate 25 mg 25 mg PO DAILY 90 days #90 tabs 02/22/23 05/29/23 05/27/23 Rx tablet,extended release 24 hr blood sugar diagnostic (Accu-Chek #100 strips 03/20/23 05/29/23 Unknown Rx Danii Plus test strips) lancets (Accu-Chek Softclix #100 ea 03/20/23 05/29/23 Unknown Rx Lancets) potassium gluconate 595 mg (99 mg) 595 mg PO QAM 05/04/23 05/29/23 05/27/23 History tablet cholecalciferol (vitamin D3) 50 50 mcg PO QAM 05/29/23 05/29/23 05/27/23 History mcg (2,000 unit) capsule (Vitamin D3) glipizide 10 mg tablet, extended 10 mg PO QAM 05/29/23 05/29/23 05/27/23 History release 24 hr lisinopril 5 mg tablet 5 mg PO QAM 05/29/23 05/29/23 05/27/23 History rosuvastatin 20 mg tablet (Crestor) 20 mg PO QAM 05/29/23 05/29/23 05/27/23 History spironolactone 25 mg tablet 25 mg PO QAM 05/29/23 05/29/23 05/27/23 History tamsulosin 0.4 mg capsule 0.8 mg PO QAM 05/29/23 05/29/23 05/27/23 History vit G50-VJ-gqybofnzdy-SQ no.15 500 1 cap PO QAM 05/29/23 05/29/23 05/27/23 History mcg-400 mcg-10 mg-400 mg capsule Allergies Allergy/AdvReac Type Severity Reaction Status Date / Time No Known Allergies Allergy Verified 05/24/23 14:13 PFSH Acute 2 PFSH: Medical History Colon cancer Atherosclerosis of coronary artery LBBB (left bundle branch block) Mitral valve regurgitation Aortic stenosis CHF (congestive heart failure) Essential (primary) hypertension Type 2 diabetes mellitus Metformin intolerance (GI) Benign prostatic hyperplasia with urinary frequency Hiatal hernia Surgical History History of partial colectomy (10/04/17) Hand-assisted laparoscopic sigmoid colectomy History of coronary artery stent placement 2021 History of appendectomy History of shoulder surgery Family History Other Cancer Dementia Social History Smoking and tobacco/nicotine status: never used tobacco/nicotine Alcohol intake: never Substance/Drug Use: never Household members: spouse Housing: House Marital status: Current occupational status: employed Current gender identity: Male Vitals/I&O/Wt Last Vital Signs Temp 97.6 F 05/29/23 08:54 Pulse 81 05/29/23 08:54 Resp 20 H 05/29/23 08:54 BP 141/72 05/29/23 08:54 Pulse Ox 98 05/29/23 08:54 O2 Del Method Nasal Cannula 05/29/23 08:30 O2 Flow Rate 2 05/29/23 08:30 05/28/23 05/29/23 05/29/23 22:59 06:59 14:59 Intake Total 100 / 100 0 / 0 Balance 100 / 100 0 / 0 Weight last 48 hrs Weight 127.006 kg Physical Exam 2 Narrative: General: Alert, able to answer questions appropriately, pale, ill-appearing HEENT: Dry mucous membranes Neck: Supple Lymph: No lymphadenopathy palpated or visualized. Chest: Inspection normal Respiratory: Normal respiratory effort, lung sounds clear to auscultation Cardio: RRR, no murmurs, S1-S2 GI obese, round, active bowel sounds throughout deferred Neuro: Alert and oriented x 4 Skin: Pale, cool to the touch Urinary Catheter Management: Bhatt: Cath Placed During This Visit: yes Urinary Catheter Date of Insertion: 05/29/23 Urinary Catheter Time of Insertion: 08:55 Data 05/29/23 05:34 05/29/23 08:25 Other Labs: RBC 2.93, Hgb 8.8, HCT 27.9, platelet count 102, PT 17.1, INR 1.35 Potassium 6.1, glucose 311, BUN 32, Alk phos 38 2-hour post troponin 16.34. CXR: My impression: No acute findings, right internal jugular central line and right atrium Radiologist's impression: No acute findings CT Abd/Pel: Radiologist's impression: Active upper gastrointestinal bleeding with large duodenal diverticulum. EKG 1: My Interpretation: Sinus tachycardia with rate of 106. First-degree AV block with left bundle branch block that is not new. EKG computer-generated impression: Sinus tachycardia with first-degree AV block, left atrial enlargement, anterior ventricular conduction delay EKG 2: My Interpretation: Sinus rhythm with a first-degree AV block and left bundle branch block present. A&P Assessment and plan (1) GI bleed: Patient will undergo procedure with Dr. Tobias this afternoon. While in the emergency room, patient received 2 units of PRBCs. Continue to trend hemoglobin hematocrit. Will transfuse for hemoglobin <7. Patient was noted to be slightly hypotensive while in the emergency room 3 PRBC administration. Norepinephrine as needed. Protonix CBC, BMP in AM. (2) Hyperkalemia: Initial CMP potassium 6.1. Slight hemolysis noted. Will redraw and trend. BMP in process now. BMP in AM. (3) Thrombocytopenia: Platelet count noted to be 102. Patient received 1 unit of plasma in emergency room. Continue to trend. (4) Essential (primary) hypertension: On hold due to hypotension and syncopal episode. Will restart at a later time. (5) Type 2 diabetes mellitus: Insulin SS Accu-Cheks ACHS N.p.o. Consistent carb diet when able to eat. Qualifiers: Diabetes mellitus complication status: without complication Diabetes mellitus termite control servicer insulin use: without termite control servicer use Qualified Code(s): E11.9 - Type 2 diabetes mellitus without complications (6) Benign prostatic hyperplasia with urinary frequency: Continue Flomax (7) Syncopal episodes: As per #1 Plan Plan as stated above. Patient will undergo procedure this afternoon with general surgery for active bleed. Continue to trend labs this afternoon and in a.m. DVT prophylaxis: SCDs PPI prophylaxis: Protonix CODE STATUS: Full code. In the event the patient is unable to make decisions for himself, , will make decisions for patient. Coding Level of Care Code Critical Care >/= 30 minutes Diagnoses GI bleed K92.2 Hyperkalemia E87.5 Thrombocytopenia D69.6 Essential (primary) hypertension I10 Type 2 diabetes mellitus without complication, without long-term current use of insulin E11.9 Diabetes mellitus complication status: without complication Diabetes mellitus termite control servicer insulin use: without assisted use Benign prostatic hyperplasia with urinary frequency N40.1; R35.0 Syncopal episodes R55 Documented by User: Julio Gonzalez MD 05/29/23 09:54 Providers/Reason For Consult 2 Consulting Physician/Specialty*: Julio Gonzalez MD History of Present Illness History of Present Illness Patient is a 77-year-old male medical history of colon cancer, CHF, mitral valve regurgitation, aortic stenosis, hypertension, type 2 diabetes, BPH who presents to the emergency room with a syncopal episode. Patient will be admitted to the hospital for further medical management of GI bleed, syncopal episode, hyperkalemia, and thrombocytopenia. Patient reports that on 05/27/2023, he noticed that he started having black/bloody stools. Reported 2-3 diarrheal stools that day which continued into Monday morning. He has been short of breath, and dizzy. pediatric clinical dietician 05/29/2023, patient stated that he got up to go to the bathroom and his heard him fall and was laying in the floor. Patients called EMS at this time. EMS reports that they found him on the floor. Transported to [facility] ER. Patient does report some overall weakness, nausea. He denies any chest pain, vomiting, fever, chills. Denies abdominal pain. Denies any generalized pain or anticoagulation usage. He is only on aspirin daily. In the emergency department he had coffee-ground emesis. While in the emergency room, patient has received octreotide 50 mcg, TXA, Protonix 80 mg, 4 mg Zofran 2 units PRBCs and 1 unit platelets. Right IJ TLC placed. Review of Systems 2 General: Reports: 10 or more systems reviewed and unremarkable except in HPI and below Card: Denies: chest pain Resp: Reports: dyspnea GI: Reports: coffee ground emesis and melena Medications/Allergies Home Medications Medication Instructions Recorded Confirmed Last Taken Type aspirin 81 mg tablet,delayed 81 mg PO QAM 07/30/19 05/29/23 05/27/23 History release (Adult Aspirin Regimen) ascorbic acid (vitamin C) 500 mg 500 mg PO QAM 06/30/22 05/29/23 05/27/23 History tablet metoprolol succinate 25 mg 25 mg PO DAILY 90 days #90 tabs 0905/29/23 05/27/23 Rx tablet,extended release 24 hr blood sugar diagnostic (Accu-Chek #100 strips 03/20/23 05/29/23 Unknown Rx Danii Plus test strips) lancets (Accu-Chek Softclix #100 ea 03/20/23 05/29/23 Unknown Rx Lancets) potassium gluconate 595 mg (99 mg) 595 mg PO QAM 05/04/23 05/29/23 05/27/23 History tablet cholecalciferol (vitamin D3) 50 50 mcg PO QAM 05/29/23 05/29/23 05/27/23 History mcg (2,000 unit) capsule (Vitamin D3) glipizide 10 mg tablet, extended 10 mg PO QAM 05/29/23 05/29/23 05/27/23 History release 24 hr lisinopril 5 mg tablet 5 mg PO QAM 05/29/23 05/29/23 05/27/23 History rosuvastatin 20 mg tablet (Crestor) 20 mg PO QAM 05/29/23 05/29/23 05/27/23 History spironolactone 25 mg tablet 25 mg PO QAM 05/29/23 05/29/23 05/27/23 History tamsulosin 0.4 mg capsule 0.8 mg PO QAM 05/29/23 05/29/23 05/27/23 History vit J69-EN-fdxzzazpjh-NL no.15 500 1 cap PO QAM 05/29/23 05/29/23 05/27/23 History mcg-400 mcg-10 mg-400 mg capsule Allergies Allergy/AdvReac Type Severity Reaction Status Date / Time No Known Allergies Allergy Verified 05/24/23 14:13 PFSH Acute 2 PFSH: Medical History Colon cancer Atherosclerosis of coronary artery LBBB (left bundle branch block) Mitral valve regurgitation Aortic stenosis CHF (congestive heart failure) Essential (primary) hypertension Type 2 diabetes mellitus Metformin intolerance (GI) Benign prostatic hyperplasia with urinary frequency Hiatal hernia Surgical History History of partial colectomy (10/04/17) Hand-assisted laparoscopic sigmoid colectomy History of coronary artery stent placement 2021 History of appendectomy History of shoulder surgery Family History Other Cancer Dementia Social History Smoking and tobacco/nicotine status: never used tobacco/nicotine Alcohol intake: never Substance/Drug Use: never Household members: spouse Housing: House Marital status: Current occupational status: employed Current gender identity: Male Physical Exam 2 Narrative: General: Alert, able to answer questions appropriately, pale, ill-appearing HEENT: Dry mucous membranes Neck: Supple Lymph: No lymphadenopathy palpated or visualized. Chest: Inspection normal Respiratory: Normal respiratory effort, lung sounds clear to auscultation Cardio: RRR, no murmurs, S1-S2 GI obese, round, active bowel sounds throughout. No pain to palpation deferred Neuro: Alert and oriented x 4 Skin: Pale, cool to the touch Urinary Catheter Management: Bhatt: Cath Placed During This Visit: yes Data 05/29/23 05:34 05/29/23 08:25 Other Labs: RBC 2.93, Hgb 8.8, HCT 27.9, platelet count 102, PT 17.1, INR 1.35 Potassium 6.1, glucose 311, BUN 32, Alk phos 38 2-hour post troponin 16.34. Repeat potassium pending Urinalysis pending CXR: My impression: No acute findings, right internal jugular central line and right atrium. By my read EKG 1: My Interpretation: Sinus tachycardia with rate of 106. First-degree AV block with left bundle branch block that is not new. By my read A&P Assessment and plan (1) GI bleed: Surgery is admitting for probable endoscopy today While in the emergency room, patient received 2 units of PRBCs. Continue to trend hemoglobin hematocrit. Will transfuse for hemoglobin <7, or significant symptoms Patient was noted to be slightly hypotensive while in the emergency room 3 PRBC administration. Norepinephrine as needed. Protonix 40 mg IV every 12 hours. Received a dose of 80 mg in the emergency department CBC, CMP in AM. (2) Hyperkalemia: Initial CMP potassium 6.1. Slight hemolysis noted. Will redraw and trend. BMP in process now. BMP in AM. If potassium significantly high consider calcium, insulin and glucose, possible beta agonist (3) Thrombocytopenia: (4) Essential (primary) hypertension: (5) Type 2 diabetes mellitus: Qualifiers: Diabetes mellitus complication status: without complication Diabetes mellitus termite control servicer insulin use: without assisted use Qualified Code(s): E11.9 - Type 2 diabetes mellitus without complications (6) Benign prostatic hyperplasia with urinary frequency: (7) Syncopal episodes: Plan Coronary artery disease. Hold aspirin until stabilization of upper GI bleed. Resume metoprolol, when able. Resume Crestor when able/able to take p.o. previous echocardiogram demonstrated EF of 35 to 40% with mild aortic valve stenosis in March 2022. Last cardiac intervention was April 2021 with LAD drug-eluting stent Plan as stated above. Patient will undergo procedure this afternoon with general surgery for active bleed. Continue to trend labs this afternoon and in a.m. DVT prophylaxis: SCDs. Anticoagulation contraindicated secondary to GI bleeding PPI prophylaxis: Protonix CODE STATUS: Full code. In the event the patient is unable to make decisions for himself, , will make decisions for patient. Consult Attestations 2 Critical Care Time: The high probability of a clinically significant, sudden or life threatening deterioration of the patient's [cardiac, hematologic, GI] system(s) required my full and direct attention, intervention and personal management. The critical care time is as shown. This time is in addition to time spent performing any reported procedures but includes the following: [x] Data and vital sign review and interpretation [x] Patient assessment, examination and intervention [x] Documentation [x] Medication orders and management Critical Care Time (min): 46 Coding Level of Care Code Critical Care >/= 30 minutes Critical care time (in minutes): 46 The high probability of a clinically significant, sudden or life threatening deterioration, as referenced in this documentation, required my full and direct attention, intervention and personal management. The critical care time shown is in addition to time spent performing any reported separately billable procedures and includes the following: [x] Data and vital sign review and interpretation [x ] Patient assessment, examination and intervention [x] Medication orders and management [x] Patient/Family updates as able [x] Care Coordination and Documentation. Diagnoses GI bleed K92.2 Hyperkalemia E87.5 Thrombocytopenia D69.6 Essential (primary) hypertension I10 Type 2 diabetes mellitus without complication, without long-term current use of insulin E11.9 Diabetes mellitus complication status: without complication Diabetes mellitus termite control servicer insulin use: without assisted use Benign prostatic hyperplasia with urinary frequency N40.1; R35.0 Syncopal episodes R55
[2023-05-29 09:03] LABS: Anion Gap 14.4 (5-19); Blood Urea Nitrogen 34 mg/dL (8-23); Calcium 7.8 mg/dL (8.5-10.5); Carbon Dioxide 23 mmol/L (22-29); Chloride 102 mmol/L (98-107); Glucose 367 mg/dL (65-115); Osmolality Calculated 301 mOsm/kg (285-295); Potassium 5.4 mmol/L (3.5-5.1); Sodium 134 mmol/L (136-145)
--- NOTE | 2023-05-29 09:36 | P.HP_ITS ---
Providers/Chief Complaint 2 Admitting Physician: Matt Tobias DO Primary Care Provider: Shila Gaspar MD Chief Complaint: syncope History of Present Illness Raj Herrera is a 77 year old male who presented to the hospital with weakness, syncope and coffee-ground emesis. He denies any abdominal pain. Symptoms began approximately 2 dayS ago. For those 2 days he has been having diarrhea with melena. He denies any constipation and/or hematochezia . Denies any fever or chills. He was somewhat hypotensive and anemic upon arrival. General surgery was asked to perform an EGD. Review of Systems 2 General: Reports: 10 or more systems reviewed and unremarkable except in HPI and below Medications/Allergies Home Medications Medication Instructions Recorded Confirmed Last Taken Type aspirin 81 mg tablet,delayed 81 mg PO QAM 07/30/19 05/29/23 05/27/23 History release (Adult Aspirin Regimen) ascorbic acid (vitamin C) 500 mg 500 mg PO QAM 06/30/22 05/29/23 05/27/23 History tablet metoprolol succinate 25 mg 25 mg PO DAILY 90 days #90 tabs 02/22/23 05/29/23 05/27/23 Rx tablet,extended release 24 hr blood sugar diagnostic (Accu-Chek #100 strips 03/20/23 05/29/23 Unknown Rx Danii Plus test strips) lancets (Accu-Chek Softclix #100 ea 03/20/23 05/29/23 Unknown Rx Lancets) potassium gluconate 595 mg (99 mg) 595 mg PO QAM 05/04/23 05/29/23 05/27/23 History tablet cholecalciferol (vitamin D3) 50 50 mcg PO QAM 05/29/23 05/29/23 05/27/23 History mcg (2,000 unit) capsule (Vitamin D3) glipizide 10 mg tablet, extended 10 mg PO QAM 05/29/23 05/29/23 05/27/23 History release 24 hr lisinopril 5 mg tablet 5 mg PO QAM 05/29/23 05/29/23 05/27/23 History rosuvastatin 20 mg tablet (Crestor) 20 mg PO QAM 05/29/23 05/29/23 05/27/23 History spironolactone 25 mg tablet 25 mg PO QAM 05/29/23 05/29/2323 History tamsulosin 0.4 mg capsule 0.8 mg PO QAM 05/29/23 05/29/23 05/27/23 History vit P49-NT-rtgmpewihs-MH no.15 500 1 cap PO QAM 05/29/23 05/29/23 05/27/23 History mcg-400 mcg-10 mg-400 mg capsule Allergies Allergy/AdvReac Type Severity Reaction Status Date / Time No Known Allergies Allergy Verified 05/24/23 14:13 PFSH Acute 2 PFSH: Medical History Colon cancer Atherosclerosis of coronary artery LBBB (left bundle branch block) Mitral valve regurgitation Aortic stenosis CHF (congestive heart failure) Essential (primary) hypertension Type 2 diabetes mellitus Metformin intolerance (GI) Benign prostatic hyperplasia with urinary frequency Hiatal hernia Surgical History History of partial colectomy (10/04/17) Hand-assisted laparoscopic sigmoid colectomy History of coronary artery stent placement 2021 History of appendectomy History of shoulder surgery Family History Other Cancer Dementia Social History Smoking and tobacco/nicotine status: never used tobacco/nicotine Alcohol intake: never Substance/Drug Use: never Household members: spouse Housing: House Marital status: Current occupational status: employed Current gender identity: Male Vitals/I&O/Wt Last Vital Signs Temp 97.6 F 05/29/23 08:54 Pulse 81 05/29/23 08:54 Resp 20 H 05/29/23 08:54 BP 141/72 05/29/23 08:54 Pulse Ox 98 05/29/23 08:54 O2 Del Method Nasal Cannula 05/29/23 08:30 O2 Flow Rate 2 05/29/23 08:30 05/28/23 05/29/23 05/29/23 22:59 06:59 14:59 Intake Total 100 / 100 0 / 0 Balance 100 / 100 0 / 0 Weight last 48 hrs Weight 280 lb Physical Exam 2 Narrative: General : Patient is well developed , no acute distress, oriented x3 Head : Normal cephalic, a-traumatic. Ears : Pinnae and external canal are normal. Hearing is normal. Eyes : PERRLA, Sclera and injection are normal. No conjunctival discharge. Nose : Mucous membranes are without erythema. Throat : buccal mucosa is normal, gums are without significant recession or hypertrophy. Lungs : Equal chest rise bilaterally, no use of accessory muscles, trachea is midline. Cor : Rate and rhythm are normal. Abdomen : Soft, ND, NT, no g/r/m Extremities : No edema, no cyanosis or clubbing, dorsalis pedis pulses are present bilaterally, non-tender to palpation of calves. Upper extremities are normal bilaterally. Back : non-tender to palpation, no CVA tenderness. Neuro : CN II - XII intact, Upper and lower extremities have equal and full strength Urinary Catheter Management: Bhatt: Cath Placed During This Visit: yes Urinary Catheter Date of Insertion: 05/29/23 Urinary Catheter Time of Insertion: 08:55 Data 05/29/23 05:34 05/29/23 08:25 A&P Assessment and plan (1) GI bleed: (2) Acute blood loss anemia: (3) Thrombocytopenia: (4) Syncopal episodes: (5) CHF (congestive heart failure): Qualifiers: Heart failure chronicity: chronic Heart failure type: systolic Qualified Code(s): I50.22 - Chronic systolic (congestive) heart failure (6) Melena: Plan EGD The risks and benefits of the procedure, including bleeding, infection, intestinal perforation requiring surgery, missed lesion were explained to the patient. The patient is understanding of the risks and wishes to proceed. Plan to admit to ICU and switch care to hospitalist after EGD Attestations 2 Medical Necessity Statement*: Patient requires at least 1 night in the hospital for recovery and resuscitation after GI bleed Coding Level of Care Code 95339 Diagnoses GI bleed K92.2 Acute blood loss anemia D62 Thrombocytopenia D69.6 Syncopal episodes R55 Chronic systolic congestive heart failure I50.22 Heart failure chronicity: chronic Heart failure type: systolic Melena K92.1
--- NOTE | 2023-05-29 10:25 | ANE.PACU2 ---
Inpatient post-anesthesia follow up: Airway intact: Yes Vital signs: Temperature 97.7 F Pulse Rate 92 Respiratory Rate 22 Blood Pressure 129/73 Pulse Oximetry 96 Oxygen Delivery Me thod Room Air Oxygen Flow Rate 2 Fraction of Inspir ed Oxygen Hydration adequate: Yes Nausea and vomiting: No Pain level: 1 Mental status: Baseline
[2023-05-29 11:39] LABS: Add Urine Microscopic? YES; Bilirubin Urine Neg (Negative); Blood Urine 2+ (Negative); Glucose Urine UA 2+ (Normal); Ketones Urine 1+ (Negative); Leukocyte Esterase Urine Negative (Negative); Nitrate Urine Negative (Negative); Protein Urine Neg (Negative); Urine Appearance Clear (CLEAR); Urine Color Yellow (Yellow); Urobilinogen Urine Norm (Negative); pH Urine 5 (5-7)
[2023-05-29 11:40] LABS: Add Urine Culture? Yes; Bacteria Urine TRACE /hpf; Mucus Urine TRACE /hpf; RBC Urine 15-25 /hpf (0-2); WBC Urine 0-4 /hpf (0-5)
--- NOTE | 2023-05-29 11:52 | ECG_ITS ---
[facility] Test Date: 2023-05-29 Pat Name: Raj Herrera Department: Room: ICU04 Gender: Male Manager Applied: : 1945 Requested By: Ricardo Lees Order Number: [id number] Rupert MD: Joss Chun M.D. Measurements Intervals [place] Rate: 88 P: 37 MI: 160 QRS: 0 QRSD: 163 T: 111 QT: 419 QTc: 508 Interpretive Statements SINUS RHYTHM LEFT BUNDLE BRANCH BLOCK [120+ ms QRS DURATION, 80+ ms Q/S IN V1/V2, 85+ ms R IN I/aVL/V5/V6] Compared to ECG 05/29/2023 07:22:28 No significant changes Electronically Signed On 05-29-2023 15:59:34 MECHANICAL REPAIR WORKER by Joss Chun M.D. [id number]
[2023-05-29] MEDS: sucralfate 1 gm/10 mL Oral Liq UDC PO (12:17)
[2023-05-29 15:08] LABS: Potassium 4.9 mmol/L (3.5-5.1)
[2023-05-29] MEDS: pantoprazole 40 mg SDV IVP (18:22)
[2023-05-29 18:36] LABS: Hematocrit 27.8 % (37-53)
[2023-05-30] VITALS (77 sets, daily range): BP systolic 129–162; BP diastolic 57–87; PULSE 72–97; RESP 12–24; TEMP 37; O2SAT 92–99
--- NOTE | 2023-05-30 01:43 | PC.NURSE ---
Addendum entered by Demian Burns RN 05/30/23 06:46: Patient requested not to go by air ambulance due to not having membership with them. Patient requested to go by ground if possible. Original Note: Report called to [facility] given to Janna. Patient is transferring to [facility] Stepdown room #12. Permission received from [facility] hospitalist for ground transport.
[2023-05-30 02:07] LABS: Glucose Point of Care 258 mg/dL (70-110)
[2023-05-30 04:29] LABS: Eosinophils % 0.2 %; Hematocrit 26.1 % (37-53); Lymphocytes # 0.9 10^3/uL (0.8-4.8); Lymphocytes % 15.5 %; Mean Corpuscular HGB Conc 33.7 g/dL (30-55); Mean Corpuscular Hemoglobin 31.7 pg (27-33); Mean Corpuscular Volume 93.9 fl (82-101); Mean Platelet Volume 12.8 fL (7.4-10.4); Monocytes # 1.6 10^3/uL (0.2-0.9); Monocytes % 25.8 %; Neutrophils # 3.48 10^3/uL (1.8-7.7); Neutrophils % 57.5 %; Nucleated Red Blood Cells % 0 %; Platelet Count 76 10^3/cmm (157-399); Red Blood Count 2.78 10^6/uL (3.85-5.65); Red Cell Distribution Width 16.8 % (12.1-15.1); White Blood Count 6.05 10^3/uL (3.29-11.43)
[2023-05-30 04:50] LABS: Alanine Aminotransferase 11 U/L (0-41); Albumin Level 3.2 g/dL (3.5-5.2); Alkaline Phosphatase 39 U/L (40-130); Anion Gap 14.5 (5-19); Aspartate Amino Transferase 15 U/L (0-40); Blood Urea Nitrogen 36 mg/dL (8-23); Carbon Dioxide 23 mmol/L (22-29); Chloride 106 mmol/L (98-107); Globulin 2.4 g/dL (1.3-4.6); Glucose 275 mg/dL (65-115); Magnesium 2.1 mg/dL (1.7-2.3); Osmolality Calculated 306 mOsm/kg (285-295); Potassium 4.5 mmol/L (3.5-5.1); Sodium 139 mmol/L (136-145); Total Bilirubin 0.8 mg/dL (0.15-1.2); Total Protein 5.6 g/dL (6.6-8.7)
[2023-05-30] MEDS: pantoprazole 40 mg SDV IVP (05:11)
--- NOTE | 2023-05-30 07:30 | PM.TDS ---
Transfer Summary Providers Date of Admission: 05/29/23 10:30 Date of Discharge/Transfer: 05/30/23 Attending Provider at Admission: Matt Tobias DO Attending Provider at Transfer: Matt Tobias DO Primary Care Provider: Shila Gaspar MD Transfer Plans: Anticipated date of transfer: 05/30/23. Diagnoses at Discharge Discharge Diagnosis (1) GI bleed: Status: Acute (2) Hyperkalemia: Status: Acute (3) Thrombocytopenia: Status: Acute (4) Essential (primary) hypertension: Status: Acute (5) Type 2 diabetes mellitus: Status: Acute Qualifiers: Diabetes mellitus terminal carman insulin use: without terminal carman use Diabetes mellitus complication status: without complication Qualified Code(s): E11.9 - Type 2 diabetes mellitus without complications Permanent problem details: Metformin intolerance (GI) (6) Benign prostatic hyperplasia with urinary frequency: Status: Acute (7) Syncopal episodes: Status: Acute Reason for Visit Reason for Visit syncope Hospital Course Hospital Course Raj is a 77-year-old white male who presented to the emergency department with history of melena for several days as well as some hematemesis. He was found to be anemic, symptomatic with hypotension, and was rapidly transfused 2 units of blood, unit of FFP, and given an infusion of TXA. With this his blood pressure improved. He was admitted to general surgery, and an EGD was performed. This demonstrated a duodenal ulcer, and a duodenal diverticulum. There was overlying clot of the ulcer he was kept NPO. Protonix IV was given in the emergency department which was continued. His aspirin was held.. Surgery believe the patient needed to be transferred, for evaluation by GI for removal of clot, possible intervention to prevent rebleed. I contacted [facility], and Dr. Nicholas graciously accepted the patient. He was ultimately transferred on May 30 in stable condition. Hemoglobin 8.8 at that time. Patient and family were informed of the risks of transfer. They agreed with transfer. Physical Exam Narrative: General exam no distress Neck is supple Cardiovascular regular rate and rhythm Lungs clear Abdomen soft, nontender Extremities no sinus clubbing edema Urinary Catheter Management: Bhatt: Cath Placed During This Visit: yes Reason for Continuing Indwelling Catheter: Accurate Measurement of Urinary Output in Critically Ill Patients Urinary Catheter Date of Insertion: 05/29/23 Urinary Catheter Time of Insertion: 08:55 TS Data Studies Completed and Pending Pending at discharge Category Date Time Status ABO/Rh Type Stat Lab 05/29/23 07:19 Results Complete Crossmatch Stat Lab 05/29/23 07:19 Results FFP [Frozen Plasma FZ <24 1st Cont] Routine Lab 05/29/23 07:19 Results Leukocyte Reduced RBC Stat Lab 05/29/23 07:19 Results Type and Screen Stat Lab 05/29/23 07:19 Results Urine Culture Stat Lab 05/29/23 08:46 Received Completed Studies During Hospitalization Category Date Time Status CT abdomen pelvis w con* [id number] Urgent Cat Scan 05/29/23 05:27 Completed XR chest 1V portable [id number] Stat Exams 05/29/23 05:24 Completed XR chest 1V portable [id number] Stat Exams 05/29/23 08:29 Completed Laboratory Last Values WBC 6.05 10^3/uL (3.29-11.43) 05/30/23 04:00 RBC 2.78 10^6/uL (3.85-5.65) L 05/30/23 04:00 Hgb 8.80 g/dL (11.27-16.99) L 05/30/23 04:00 Hct 26.1 % (37-53) L 05/30/23 04:00 MCV 93.9 fl (82-101) 05/30/23 04:00 MCH 31.7 pg (27-33) 05/30/23 04:00 MCHC 33.7 g/dL (30-55) D 05/30/23 04:00 RDW 16.8 % (12.1-15.1) H 05/30/23 04:00 Plt Count 76 10^3/cmm (157-399) L 05/30/23 04:00 MPV 12.8 fL (7.4-10.4) H 05/30/23 04:00 Neut % (Auto) 57.5 % 05/30/23 04:00 Lymph % (Auto) 15.5 % 05/30/23 04:00 [place] % (Auto) 25.8 % 05/30/23 04:00 Eos % (Auto) 0.2 % 05/30/23 04:00 Baso % (Auto) 0.0 % 05/30/23 04:00 Neut # (Auto) 3.48 10^3/uL (1.8-7.7) 05/30/23 04:00 Lymph # (Auto) 0.9 10^3/uL (0.8-4.8) 05/30/23 04:00 [place] # (Auto) 1.6 10^3/uL (0.2-0.9) H 05/30/23 04:00 Eos # (Auto) 0.0 10^3/uL (0.0-0.8) 05/30/23 04:00 Baso # (Auto) 0.0 10^3/uL (0.0-0.1) 05/30/23 04:00 Nucleated RBC % (auto) 0 % 05/30/23 04:00 Nucleated RBCs # 0.0 /100WBC 05/30/23 04:00 PT 17.10 SECONDS (12.1-14.9) H 05/29/23 07:19 INR 1.35 (0.8-1.2) H 05/29/23 07:19 APTT 24.3 SECONDS (23.9-36.7) 05/29/23 07:19 Sodium 139 mmol/L (136-145) 05/30/23 04:00 Potassium 4.5 mmol/L (3.5-5.1) 05/30/23 04:00 Chloride 106 mmol/L (98-107) 05/30/23 04:00 Carbon Dioxide 23 mmol/L (22-29) 05/30/23 04:00 Anion Gap 14.5 (5-19) 05/30/23 04:00 BUN 36 mg/dL (8-23) H 05/30/23 04:00 Creatinine 1.0 mg/dL (0.7-1.2) 05/30/23 04:00 GFR Calculation Not Reportable 05/30/23 04:00 Glucose 275 mg/dL (65-115) H 05/30/23 04:00 POC Glucose 258 mg/dL (70-110) H 05/30/23 01:53 Calculated Osmolality 306 mOsm/kg (285-295) H 05/30/23 04:00 Calcium 8.0 mg/dL (8.5-10.5) L 05/30/23 04:00 Magnesium 2.1 mg/dL (1.7-2.3) 05/30/23 04:00 Total Bilirubin 0.8 mg/dL (0.15-1.2) 05/30/23 04:00 AST 15 U/L (0-40) 05/30/23 04:00 ALT 11 U/L (0-41) 05/30/23 04:00 Alkaline Phosphatase 39 U/L (40-130) L 05/30/23 04:00 Troponin T Baseline 9 ng/L (0-15) 05/29/23 05:34 Troponin T 120 Minute 16.34 ng/L (0-15) H 05/29/23 07:19 Delta Troponin T 7.34 ABS# (0-10) 05/29/23 07:19 Troponin T Hi Sens 6Hr 18.60 ng/L (0-15) H 05/29/23 12:58 Troponin T Hi Sens 6Hr Delta 9.60 ng/L (0-12) 05/29/23 12:58 NT-Pro-B Natriuret Pep 206 pg/mL (0-450) 05/29/23 07:19 Total Protein 5.6 g/dL (6.6-8.7) L 05/30/23 04:00 Albumin 3.2 g/dL (3.5-5.2) L 05/30/23 04:00 Globulin 2.4 g/dL (1.3-4.6) 05/30/23 04:00 Lipase 13 U/L (13-60) 05/29/23 07:19 Urine Color Yellow (Yellow) 05/29/23 08:46 Urine Appearance Clear (CLEAR) 05/29/23 08:46 Urine pH 5 (5-7) 05/29/23 08:46 Ur Specific [place] 1.010 (1.005-1.030) 05/29/23 08:46 Urine Protein Neg (Negative) 05/29/23 08:46 Urine Glucose (UA) 2+ (Normal) H 05/29/23 08:46 Urine Ketones 1+ (Negative) H 05/29/23 08:46 Urine Blood 2+ (Negative) H 05/29/23 08:46 Urine Nitrate Negative (Negative) 05/29/23 08:46 Urine Bilirubin Neg (Negative) 05/29/23 08:46 Urine Urobilinogen Norm mg/dL (Negative) 05/29/23 08:46 Ur Leukocyte Esterase Negative (Negative) 05/29/23 08:46 Urine RBC 15-25 /hpf (0-2) H 05/29/23 08:46 Urine WBC 0-4 /hpf (0-5) H 05/29/23 08:46 Ur Squamous Epith Cells None /hpf (0-5) 05/29/23 08:46 Amorphous Sediment Not Reportable 05/29/23 08:46 Urine Bacteria Trace /hpf (NONE) 05/29/23 08:46 Urine Mucus Trace /hpf 05/29/23 08:46 Blood Type A Negative 05/29/23 07:19 Rho(D) Type Negative 05/29/23 07:19 Antibody Screen Negative 05/29/23 07:19 Crossmatch See Detail 05/29/23 07:19 Radiology Impressions Abdomen/Pelvis CT 05/29/23 05:27 IMPRESSION: Positive for active upper gastrointestinal bleeding within a large duodenal diverticulum. COMMENTS: Consistent with the [place] [employer]'s Incidental Findings Committee white paper (J Am Estephanie Radiol 2018): Any incidental renal lesion less than 1 cm or classified as too small to characterize, or any incidental cystic renal lesion characterized as simple-appearing, is likely benign. No follow-up imaging is recommended for these lesions per consensus recommendations based on imaging criteria. Recent Clincial Data Last Vital Signs Temp 98.6 F 05/30/23 01:05 Pulse 76 05/30/23 06:05 Resp 14 05/30/23 06:05 BP 133/57 05/30/23 06:05 Pulse Ox 95 05/30/23 06:05 O2 Del Method Room Air 05/29/23 17:00 O2 Flow Rate 2 05/29/23 08:30 Vital Signs Temp Pulse Resp BP Pulse Ox 05/30/23 06:05 76 14 133/57 95 05/30/23 06:00 72 13 133/57 94 05/30/23 06:00 78 05/30/23 05:55 74 14 142/68 96 05/30/23 05:50 74 14 142/68 92 05/30/23 05:45 75 15 142/68 94 05/30/23 05:40 78 18 146/60 98 05/30/23 05:35 79 17 146/60 94 05/30/23 05:30 85 17 146/60 95 05/30/23 05:25 85 16 143/66 95 05/30/23 05:20 84 17 143/66 96 05/30/23 05:15 85 17 143/66 96 05/30/23 05:10 84 16 147/68 96 05/30/23 05:05 82 13 147/68 95 05/30/23 05:00 83 14 147/68 93 05/30/23 04:55 87 16 149/63 95 05/30/23 04:50 89 16 149/63 95 05/30/23 04:45 87 15 149/63 96 05/30/23 04:40 87 14 129/59 96 05/30/23 04:35 85 14 129/59 95 05/30/23 04:30 82 14 129/59 95 05/30/23 04:25 78 15 144/59 94 05/30/23 04:20 77 12 144/59 94 05/30/23 04:15 76 14 144/59 95 05/30/23 04:10 82 14 145/65 93 05/30/23 04:05 83 16 145/65 96 05/30/23 04:00 86 19 H 145/65 96 05/30/23 03:55 80 14 155/64 94 05/30/23 03:50 83 15 155/64 94 05/30/23 03:45 82 17 155/64 95 05/30/23 03:40 89 20 H 147/63 95 05/30/23 03:35 81 14 147/63 94 05/30/23 03:30 82 17 147/63 95 05/30/23 03:25 80 16 148/70 95 05/30/23 03:20 81 16 148/70 96 05/30/23 03:15 83 17 148/70 95 05/30/23 03:10 80 15 131/59 94 05/30/23 03:05 77 15 131/59 96 05/30/23 03:00 78 14 131/59 96 05/30/23 02:55 77 14 140/61 94 05/30/23 02:50 79 15 140/61 93 05/30/23 02:45 77 14 140/61 94 05/30/23 02:40 80 17 151/72 95 05/30/23 02:35 95 17 151/72 95 05/30/23 02:30 86 17 151/72 94 05/30/23 02:25 83 17 152/66 96 12/12/23 02:20 85 18 152/66 95 05/30/23 02:15 82 17 152/66 94 05/30/23 02:10 83 18 149/64 95 05/30/23 02:05 79 18 149/64 95 05/30/23 02:00 80 18 149/64 95 05/30/23 01:55 80 17 161/87 96 05/30/23 01:50 81 15 161/87 99 05/30/23 01:45 81 24 H 161/87 97 05/30/23 01:40 96 17 151/70 98 05/30/23 01:35 84 17 151/70 96 05/30/23 01:30 83 17 151/70 96 05/30/23 01:25 84 17 143/67 95 05/30/23 01:20 86 16 143/67 95 05/30/23 01:15 83 17 143/67 95 05/30/23 01:10 88 18 144/70 95 05/30/23 01:05 98.6 F 86 17 144/70 94 05/30/23 01:00 88 17 144/70 94 05/30/23 00:55 97 18 146/67 94 05/30/23 00:50 92 17 146/67 96 05/30/23 00:45 86 16 146/67 95 05/30/23 00:40 82 14 148/68 97 05/30/23 00:35 88 14 148/68 94 05/30/23 00:30 88 14 148/68 96 05/30/23 00:25 88 15 137/66 95 05/30/23 00:20 89 14 137/66 96 05/30/23 00:15 88 14 137/66 96 05/30/23 00:10 85 14 138/69 96 05/30/23 00:05 87 15 138/69 95 05/30/23 00:00 81 14 138/69 95 05/29/23 23:55 85 14 151/71 95 05/29/23 23:50 88 16 151/71 92 05/29/23 23:45 90 16 151/71 94 05/29/23 23:40 92 17 125/85 95 05/29/23 23:35 94 20 H 125/85 95 05/29/23 23:30 87 13 125/85 95 05/29/23 23:25 88 15 139/70 96 05/29/23 23:20 86 14 139/70 93 05/29/23 23:15 91 17 139/70 93 05/29/23 23:10 93 17 131/68 94 05/29/23 23:05 92 17 131/68 94 05/29/23 23:00 91 18 131/68 95 05/29/23 22:55 88 14 140/71 91 05/29/23 22:50 91 17 140/71 92 05/29/23 22:45 90 17 140/71 93 05/29/23 22:40 89 18 139/72 95 05/29/23 22:35 93 20 H 139/72 94 05/29/23 22:30 94 16 139/72 93 05/29/23 22:25 94 16 147/73 93 05/29/23 22:20 103 H 17 147/73 94 05/29/23 22:15 97 18 147/73 93 05/29/23 22:10 97 18 146/73 95 05/29/23 22:05 90 17 146/73 95 05/29/23 22:00 91 13 146/73 94 05/29/23 22:00 102 H 05/29/23 21:55 91 14 146/70 94 05/29/23 21:50 93 15 146/70 93 05/29/23 21:45 96 17 146/70 93 05/29/23 21:40 101 H 20 H 138/72 93 05/29/23 21:35 89 15 138/72 93 05/29/23 21:30 96 18 138/72 92 05/29/23 21:25 97 21 H 148/71 93 05/29/23 21:20 97 19 H 148/71 93 05/29/23 21:15 99 17 148/71 95 05/29/23 21:10 99 18 129/73 94 05/29/23 21:05 99 19 H 129/73 94 05/29/23 21:00 104 H 20 H 129/73 93 05/29/23 20:55 98 18 147/76 93 05/29/23 20:50 101 H 20 H 147/76 95 05/29/23 20:45 101 H 19 H 147/76 95 05/29/23 20:40 105 H 19 H 134/69 96 05/29/23 20:35 99 16 134/69 94 05/29/23 20:30 101 H 17 134/69 95 05/29/23 20:25 97 14 131/73 91 05/29/23 20:20 99 17 131/73 94 05/29/23 20:15 97 15 131/73 93 05/29/23 20:10 103 H 18 137/71 93 05/29/23 20:05 99 18 137/71 91 05/29/23 20:00 102 H 18 137/71 92 05/29/23 19:55 100 19 H 124/72 93 05/29/23 19:50 99 24 H 124/72 93 05/29/23 19:45 100 20 H 124/72 93 05/29/23 19:40 103 H 22 H 136/71 94 05/29/23 19:35 101 H 18 136/71 93 Intake & Output/Weight 05/28/23 05/29/23 05/30/23 05/31/23 06:59 06:59 06:59 06:59 Intake Total 100 / 100 1785 / 1785 Output Total 1250 / 1250 Balance 100 / 100 535 / 535 Weight 127.006 kg 124.738 kg Vitals Last Vital Signs Temp 98.6 F 05/30/23 01:05 Pulse 76 05/30/23 06:05 Resp 14 05/30/23 06:05 BP 133/57 05/30/23 06:05 Pulse Ox 95 05/30/23 06:05 O2 Del Method Room Air 05/29/23 17:00 O2 Flow Rate 2 05/29/23 08:30 TS Medications Medications norepinephrine (Levophed) 4 mg in 250 mls @ 0 mls/hr IV .Q0M [place]; Protocol Sodium Chloride (Sodium Chloride 0.9%) 1,000 mls @ 30 mls/hr IV .Q24H [place] Stop: 05/30/23 09:44 Last Admin: 05/29/23 11:17 Dose: Not Given Lidocaine HCl (Lidocaine 1% Inj 10 Ml (Per Ml)) 0.1 ml INTRADERMA PRN PRN PRN Reason: anesthetic prior to IV start Lidocaine HCl (Lidocaine 2% Viscous 15 Ml Udc) 1 ml TOPICAL PRN PRN PRN Reason: Anesthetic prior to IV start Midazolam HCl (Midazolam 1 Mg/Ml Inj 2 Ml) 2 mg IVP Q5M PRN PRN Reason: Preop Anxiety Morphine Sulfate (Morphine 4 Mg/Ml Sdv 1 Ml) 0 mg IVP Q5M PRN PRN Reason: Breakthrough Pain PACU PhaseII Ondansetron HCl (Ondansetron 2 Mg/Ml Sdv 2 Ml) 4 mg IVP Q15M PRN PRN Reason: Nausea/Vomiting PACU PHASE II Ondansetron HCl (Ondansetron 2 Mg/Ml Sdv 2 Ml) 4 mg IVP Q6H PRN PRN Reason: NAUSEA AND VOMITING Pantoprazole Sodium (Pantoprazole 40 Mg Sdv) 40 mg IVP Q12H [facility] Last Admin: 05/30/23 05:11 Dose: 40 mg Discontinued Medications Benzocaine (Cetylpyridinium Lozenge) 1 each MUCOUS MEM ONCE ONE Stop: 05/29/23 09:36 Last Admin: 05/29/23 11:17 Dose: Not Given Dexamethasone (Dexamethasone 4 Mg/Ml Inj) Confirm Administered Dose 4 mg .ROUTE .STK-MED ONE Stop: 05/29/23 08:53 Tranexamic Acid (Tranexamic Acid) 1,000 mg in 100 mls @ 600 mls/hr IV ONCE ONE Stop: 05/29/23 05:33 Last Infusion: 05/29/23 06:01 Dose: Infused Sodium Chloride (Sodium Chloride 0.9%) 1,000 mls @ 100 mls/hr IV .Q10H [place] Lidocaine HCl (Xylocaine) Confirm Administered Dose 7 mls @ as directed .ROUTE .STK-MED ONE Stop: 05/29/23 08:53 Etomidate (Amidate) Confirm Administered Dose 10 mls @ as directed .ROUTE .STK-MED ONE Stop: 05/29/23 08:55 Sodium Chloride (Sodium Chloride 0.9%) 500 mls @ 999 mls/hr IV .Q31M ONE Stop: 05/29/23 11:00 Last Admin: 05/29/23 12:11 Dose: Not Given Iohexol (Iohexol 350 Mg/Ml 500 Ml Btl (Per Ml)) 0 ml IV ONCE ONE Stop: 05/29/23 06:12 Last Admin: 05/29/23 06:11 Dose: 125 ml Octreotide Acetate (Octreotide 100 Mcg/Ml Sdv) 50 mcg IVP ONCE ONE Stop: 05/29/23 05:25 Last Admin: 05/29/23 06:15 Dose: 50 mcg Ondansetron HCl (Ondansetron 2 Mg/Ml Sdv 2 Ml) 4 mg IVP ONCE ONE Stop: 05/29/23 05:58 Last Admin: 05/29/23 06:16 Dose: 4 mg Ondansetron HCl (Ondansetron 2 Mg/Ml Sdv 2 Ml) Confirm Administered Dose 4 mg .ROUTE .STK-MED ONE Stop: 05/29/23 08:53 Pantoprazole Sodium (Pantoprazole 40 Mg Sdv) 80 mg IVP ONCE ONE Stop: 05/29/23 05:25 Last Admin: 05/29/23 05:37 Dose: 80 mg Propofol (Propofol 10 Mg/Ml Sdv 20 Ml) Confirm Administered Dose 200 mg .ROUTE .STK-MED ONE Stop: 05/29/23 08:53 Sodium Chloride (Sodium Chloride 0.9% 100 Ml Bag) 50 ml IV PRN PRN PRN Reason: Blood transfusion prime and flush Stop: 05/30/23 05:49 Sodium Chloride (Sodium Chloride 0.9% 100 Ml Bag) 50 ml IV PRN PRN PRN Reason: Blood transfusion prime and flush Stop: 05/30/23 07:02 Succinylcholine Chloride (Succinylcholine 20 Mg/Ml Sdv 10ml) Confirm Administered Dose 200 mg .ROUTE .STK-MED ONE Stop: 05/29/23 08:54 Sucralfate (Sucralfate 1 Gm/10 Ml Oral Liq Udc) 1 gm PO ONCE ONE Stop: 05/29/23 10:31 Last Admin: 05/29/23 12:17 Dose: 1 gm Allergies No Known Allergies Allergy (Verified 05/24/23 14:13) Home Medications aspirin 81 mg tablet,delayed release (Adult Aspirin Regimen) 81 mg PO QAM 07/30/19 [History Confirmed 05/29/23] ascorbic acid (vitamin C) 500 mg tablet 500 mg PO QAM 06/30/22 [History Confirmed 05/29/23] metoprolol succinate 25 mg tablet,extended release 24 hr 25 mg PO DAILY 90 days #90 tabs 02/22/23 [Rx Confirmed 05/29/23] blood sugar diagnostic (Accu-Chek Danii Plus test strips) #100 strips 03/20/23 [Rx Confirmed 05/29/23] lancets (Accu-Chek Softclix Lancets) #100 ea 03/20/23 [Rx Confirmed 05/29/23] potassium gluconate 595 mg (99 mg) tablet 595 mg PO QAM 05/04/23 [History Confirmed 05/29/23] cholecalciferol (vitamin D3) 50 mcg (2,000 unit) capsule (Vitamin D3) 50 mcg PO QAM 05/29/23 [History Confirmed 05/29/23] glipizide 10 mg tablet, extended release 24 hr 10 mg PO QAM 05/29/23 [History Confirmed 05/29/23] lisinopril 5 mg tablet 5 mg PO QAM 05/29/23 [History Confirmed 05/29/23] rosuvastatin 20 mg tablet (Crestor) 20 mg PO QAM 05/29/23 [History Confirmed 05/29/23] spironolactone 25 mg tablet 25 mg PO QAM 05/29/23 [History Confirmed 05/29/23] tamsulosin 0.4 mg capsule 0.8 mg PO QAM 05/29/23 [History Confirmed 05/29/23] vit [id number]-ZM no.15 500 mcg-400 mcg-10 mg-400 mg capsule 1 cap PO QAM 05/29/23 [History Confirmed 05/29/23] Discharge Plan Discharge Condition: Stable Prescriptions: No Action aspirin [Adult Aspirin Regimen] 81 mg tablet,delayed release (DR/EC) 81 mg PO QAM ascorbic acid (vitamin C) 500 mg tablet 500 mg PO QAM metoprolol succinate 25 mg tablet extended release 24 hr 25 mg PO DAILY 90 Days Qty: 90 1RF potassium gluconate 595 mg (99 mg) tablet 595 mg PO QAM (DME) Accu-Chek Danii Plus test strp Strip See Rx Instructions .ROUTE .COMPLEX Qty: 100 11RF Dose Instruction: TEST BLOOD SUGAR DIRECTED Rx Instructions: TEST BLOOD SUGAR DIRECTED (DME) lancets [Accu-Chek Softclix Lancets] Misc See Rx Instructions .ROUTE .COMPLEX Qty: 100 11RF Dose Instruction: USE DIRECTED Rx Instructions: USE DIRECTED Vitamin D3 50 mcg (2,000 unit) Capsule 50 mcg PO QAM vit [id number]-DG no.15 [phone] aci-xtc-fy-mg Capsule 1 cap PO QAM glipizide 10 mg tablet extended release 24hr 10 mg PO QAM spironolactone 25 mg tablet 25 mg PO QAM tamsulosin 0.4 mg capsule 0.8 mg PO QAM lisinopril 5 mg tablet 5 mg PO QAM rosuvastatin [Crestor] 20 mg tablet 20 mg PO QAM Discharge Orders: Transfer Out of Facility (Order); Ordered 05/30/23 Ordered By: Julio Gonzalez Referrals: Shila Gaspar MD [Primary Care Provider] - Patient Instructions: Opioid Safety, GI Discharge Instructions Transfer Attestations Time Spent in Transfer Care: greater than 30 min Quality Metrics Clinical Quality Measures [ No reported AMI, CVA or VTE this stay] Coding Level of Care Code 43397 Total time (in minutes) for Discharge: 31 Diagnoses GI bleed K92.2 Hyperkalemia E87.5 Thrombocytopenia D69.6 Essential (primary) hypertension I10 Type 2 diabetes mellitus without complication, without long-term current use of insulin E11.9 Diabetes mellitus residential insulin use: without residential use Diabetes mellitus complication status: without complication Benign prostatic hyperplasia with urinary frequency N40.1; R35.0 Syncopal episodes R55
--- NOTE | 2023-05-30 07:44 | PC.NURSE ---
[facility]. Report called to Eulogio at [phone]. Family called and notified of transport. Patient AAOx4, GCS 15, VSS,
--- NOTE | 2023-05-30 08:21 | PC.NURSE ---
Updated report to Elizabeth at [phone]
== END 2023-05-30 07:45 | disposition short-term general hospital (02) | DRG 378 ==
LOC: ER 06:31 → ICU 07:30
PROVIDERS: Emergency Medicine; Internal Medicine; Admitting Provider Surgery; Emergency Provider Family Medicine; PCP Family Medicine; Visit Provider Surgery
PROC: 0DJ08ZZ Inspection of Upper Intestinal Tract, Via Natural or Artificial Opening Endoscopic (ICD-10-PCS; CPT 43235; principal; 2023-05-29 09:30)
DX: K57.11 Diverticulosis of small intestine without perforation or abscess with bleeding (principal); D62 Acute posthemorrhagic anemia; I50.22 Chronic systolic (congestive) heart failure; E87.5 Hyperkalemia; D69.6 Thrombocytopenia, unspecified; Z85.038 Personal history of other malignant neoplasm of large intestine; I25.10 Atherosclerotic heart disease of native coronary artery without angina pectoris; Z95.5 Presence of coronary angioplasty implant and graft; I11.0 Hypertensive heart disease with heart failure; E11.9 Type 2 diabetes mellitus without complications; Z79.84 Long term (current) use of oral hypoglycemic drugs; N40.1 Benign prostatic hyperplasia with lower urinary tract symptoms; R35.0 Frequency of micturition; I95.9 Hypotension, unspecified
CPT/HCPCS: 36416; 36430; 36556; 36592; 43235; 51702; 71045; 74177; 80048; 80053; 81001; 82962; 83690; 83735; 83880; 84132; 84484; 85014; 85018; 85025; 85610; 85730; 86850; 86900; 86920; 86927; 87086; 93005; 96374; 96375; 96376; 99285; C1751; C9113; J0330; J1100; J2354; J2405; J2704; J3490; P9016; P9017; Q9967

== ENCOUNTER → 2023-06-14 11:52 | Outpatient (BNVA) | payer MEDICARE, SELFPAY | PROVIDERS: PCP Family Medicine; Visit Provider Family Medicine | DX: K92.2 Gastrointestinal hemorrhage, unspecified (principal); K57.11 Diverticulosis of small intestine without perforation or abscess with bleeding; E11.9 Type 2 diabetes mellitus without complications; N40.1 Benign prostatic hyperplasia with lower urinary tract symptoms; R35.0 Frequency of micturition; K92.1 Melena; D62 Acute posthemorrhagic anemia; Z09 Encounter for follow-up examination after completed treatment for conditions other than malignant neoplasm | CPT/HCPCS: 85018 ==

== ENCOUNTER → 2023-06-23 11:17 | Outpatient (BNVA) | payer MEDICARE, SELFPAY | PROVIDERS: PCP Family Medicine; Visit Provider Surgery | DX: K57.10 Diverticulosis of small intestine without perforation or abscess without bleeding (principal) | CPT/HCPCS: 99204 ==

== ENCOUNTER → 2023-08-23 14:00 | Outpatient (BNVA) | payer MEDICARE, SELFPAY | PROVIDERS: PCP Family Medicine; Visit Provider Family Medicine | DX: I10 Essential (primary) hypertension; E11.9 Type 2 diabetes mellitus without complications | CPT/HCPCS: 80053; 80061; 83036; 85025 ==

== ENCOUNTER → 2024-02-05 13:53 | Outpatient (BNVA) | payer MEDICARE, SELFPAY | PROVIDERS: PCP Family Medicine; Visit Provider Internal Medicine | DX: R06.02 Shortness of breath (principal); R53.1 Weakness; I49.9 Cardiac arrhythmia, unspecified; I42.9 Cardiomyopathy, unspecified; I10 Essential (primary) hypertension; Z79.01 Long term (current) use of anticoagulants | CPT/HCPCS: 99214 ==

== ENCOUNTER → 2024-03-07 10:57 | Outpatient (BNVA) | payer MEDICARE, SELFPAY | PROVIDERS: PCP Family Medicine; Visit Provider Family Medicine | DX: E11.9 Type 2 diabetes mellitus without complications (principal); K57.11 Diverticulosis of small intestine without perforation or abscess with bleeding | CPT/HCPCS: 80048; 83036; 85025 ==

== ENCOUNTER → 2024-09-04 11:16 | Outpatient (BNVA) | payer MEDICARE, SELFPAY | PROVIDERS: PCP Family Medicine; Visit Provider Family Medicine | DX: E11.9 Type 2 diabetes mellitus without complications (principal); I10 Essential (primary) hypertension; I50.22 Chronic systolic (congestive) heart failure | CPT/HCPCS: 80053; 83036; 83880; 85025 ==

== ENCOUNTER → 2024-11-07 10:29 | Outpatient (BNVA) | payer MEDICARE, SELFPAY | PROVIDERS: PCP Family Medicine; Visit Provider Internal Medicine | DX: I25.10 Atherosclerotic heart disease of native coronary artery without angina pectoris (principal); I11.0 Hypertensive heart disease with heart failure; I50.22 Chronic systolic (congestive) heart failure; I35.0 Nonrheumatic aortic (valve) stenosis; I34.0 Nonrheumatic mitral (valve) insufficiency; E11.9 Type 2 diabetes mellitus without complications; Z79.84 Long term (current) use of oral hypoglycemic drugs; Z79.85 Long-term (current) use of injectable non-insulin antidiabetic drugs; Z79.82 Long term (current) use of aspirin; Z87.891 Personal history of nicotine dependence; Z95.5 Presence of coronary angioplasty implant and graft | CPT/HCPCS: 99214 ==

== ENCOUNTER 2024-12-26 11:44 | Outpatient (CLI) | payer MEDICARE, SELFPAY ==
--- NOTE | 2024-12-26 12:45 | USCV_ITS ---
Raj Herrera Age: 79 Gender: M : 1945 Exam Date: 12/26/2024 12:28 Ordering Phys: Shmuel Price M.D ([email or web address]) Technologist: Exam Location[place] [facility] [place]: sob cp BP: 143 / 787 HR: 63 Rhythm: Sinus Technical Quality: Adequate MEASUREMENTS (Male / Female) Normal Values 2D ECHO LV Diastolic Diameter PLAX 5.0 cm 4.2 - 5.9 / 3.9 - 5.3 cm IVS Diastolic Thickness 1.3 cm 0.6 - 1.0 / 0.6 - 0.9 cm IVS Systolic Thickness 1.6 cm LVPW Diastolic Thickness 1.3 cm 0.6 - 1.0 / 0.6 - 0.9 cm LVPW Systolic Thickness 1.7 cm LVOT Diameter 2.1 cm LV Ejection Fraction 2D Teich 61.2 % LV Ejection Fraction MOD 4C 56.2 % LV Ejection Fraction MOD 2C 34.1 % LV Ejection Fraction 2C AL 37.1 % LA Diameter 4.3 cm RA Systolic Volume 4C AL 70.7 ml RA Systolic Volume 4C MOD 70.0 ml Aorta at Sinotubular Diameter 3.6 cm M-MODE LA Ao Ratio MM 1.1 AV Cusp Separation MM 0.9 cm DOPPLER AV Peak Velocity 260.8 cm/s LVOT Peak Velocity 68.0 cm/s AV Area Cont Eq vti 1.5 cm squared AV Area Cont Eq pk 0.9 cm squared MV Peak Velocity 122.0 cm/s MV Area PHT 4.8 cm squared Mitral E to A Ratio 0.6 TV Peak Velocity 160.7 cm/s TR Peak Velocity 242.0 cm/s TR Peak Gradient 23.4 mmHg PV Peak Velocity 117.0 cm/s FINDINGS Left Ventricle Left ventricle is normal in size. LV systolic function is moderately reduced with EF of 35 to 40%. Regional wall motion abnormalities not well assessed because of poor ultrasonic windows. Grade 1 diastolic dysfunction. Right Ventricle Normal in size and function Right Atrium Normal in size Left Atrium Normal in size Mitral Valve Structurally normal mitral valve. Mild mitral regurgitation. Aortic Valve Aortic valve is thickened and calcified. Mild aortic stenosis with aortic valve area of 1.5 cm2 and mean gradient of 8 mmHg. Mild aortic regurgitation. Tricuspid Valve Insufficient TR jet to calculate RVSP Pulmonic Valve Trace pulmonic regurgitation. Pericardium Normal Aorta Normal in size IVC Not well visualized CONCLUSIONS LV systolic function is moderately reduced with EF of 35 to 40%. Grade 1 diastolic dysfunction. Mild aortic stenosis. Mild aortic regurgitation. Trace pulmonic regurgitation. Compared to prior echocardiogram from 2021, no significant changes are seen Shmuel Price MD (Electronically Signed) Final Date: 01 January 2025 10:58 S
== END 2024-12-26 11:45 | disposition home or self-care (01) ==
LOC: RAD 11:45
PROVIDERS: PCP Family Medicine; Visit Provider Internal Medicine
DX: I35.0 Nonrheumatic aortic (valve) stenosis (principal); R93.1 Abnormal findings on diagnostic imaging of heart and coronary circulation; I34.0 Nonrheumatic mitral (valve) insufficiency; I35.8 Other nonrheumatic aortic valve disorders; I35.1 Nonrheumatic aortic (valve) insufficiency
CPT/HCPCS: 93306

== ENCOUNTER → 2025-02-13 11:10 | Outpatient (BNVA) | payer MEDICARE, SELFPAY | PROVIDERS: PCP Family Medicine; Visit Provider Family Medicine | DX: E11.9 Type 2 diabetes mellitus without complications (principal); I50.22 Chronic systolic (congestive) heart failure; I10 Essential (primary) hypertension | CPT/HCPCS: 80053; 83036 ==